=== PATIENT | male | born 1950 | race Caucasian/White ===

== ENCOUNTER 2017-08-02 12:34 | Emergency (ER) | payer BC, SELFPAY ==
[2017-08-02 13:31] VITALS: BP 149/90; PULSE 76; RESP 20; TEMP 36.9; O2SAT 96; BMI 25.5
[2017-08-02 13:59] LABS: UTC Influenza A Antigen Negative (Negative); UTC Influenza B Antigen Negative (Negative)
--- NOTE | 2017-08-02 14:13 | HMH.EDUTC ---
[facility] [place] Disposition Clinical Impression: Cough, Exposure to influenza Disposition: Home, Self-Care Condition on Discharge: Good Instructions: How to Avoid a Cold or Flu, Sore Throat Additional Instructions: * Monitor Temp. Tylenol and/or Ibuprofen as needed. ER if fever is no less than 101 despite alternating Tylenol and Ibuprofen * Encourage fluids, water, Gatorade, powerade, pedialyte if /toddler/or child * Warm salt water gargles for throat irritation *Warm fluids *Sore throat lozenges *Sleep elevated *humidifier or vaporizer Lots of rest Increase fluids, water, Gatorade, powerade *Your throat swab was sent to lab for culture. Those results area typically sent to your primary care physician. Be sure to follow up in 2-3 days if no improvement so they can review those results and treat if necessary If you dont have primary care I recommend you get one, but in the mean time you will have to return to a walk in clinic Follow up IMMEDIATELY for new or worsening of symptoms OR no noticeable improvement over the next 48-72 hours. 911 immediately for any life threatening symptoms such as chest pain or difficulty breathing Prescriptions: Dextromethorphan Polistirex [Delsym] 60 mg PO Q12H PRN #200 [email or web address] PRN Reason: Cough Referrals: Hemanth Winn MD [Primary Care Provider] - Time of Disposition: 14:18 Medical Decision Making Vital Signs: 08/02/17 13:31 Temperature 98.5 F Temperature Source Temporal Artery Scan Pulse Rate [Right] 76 Respiratory Rate 20 Blood Pressure [Right Arm] 149/90 Blood Pressure Mean [Right Arm] 109 Blood Pressure Source [Right Arm] Automatic Cuff Blood Pressure Position [Right Arm] Sitting 02 Sat by Pulse Oximetry 96 Oxygen Delivery Method Room Air - Lab Data Lab Results 08/02/17 13:46: Influenza Type A Ag Negative, Influenza Type B Ag Negative - Arnaldo Inquiry Pt receiving controlled substance: No Arnaldo was queried for this patient: No [facility] [place] HPI - General Stated complaint: sore throat congestion Mode of Arrival: Ambulatory Source of Information: Patient Limitations: No Limitations Description of Symptoms (Recalled from Triage Doc. by RN): REQUESTS CHECK FOR FLU HEENT Symptoms (Recalled from RN notes): Yes Resp Symptoms (Recalled from RN notes): No Skin Symptoms (Recalled from RN notes): No MS Symptoms (Recalled from RN notes): No Functional Status (Recalled from RN notes): N - History of Present Illness Provider Complaint: Patient state that he wanted to be seen for the Flu because his was flu positive about 5 days ago Onset (ago): day(s) (1-2) Severity: mild Severity scale (1-10): 2 Relieving factors: none Exacerbating factors: none Associated symptoms: cough, fever/chills, headaches Treatments prior to arrival: none - Related Data Previous Rx's Medication Instructions Recorded Dextromethorphan Polistirex 60 mg PO Q12H PRN #200 [email or web address] 08/02/17 [Delsym] Allergies Allergy/AdvReac Type Severity Reaction Status Date / Time morphine Allergy Mild Unverified 07/18/17 14:33 - Worker's Comp Is this a Worker's Comp case?: No [facility] History - *Social History Alcohol Intake: never - Psychiatric History Expresses thoughts of harming self/others: None Suicide Plan Description: No Plan - Constitutional Reports body ache(s), Reports chills, Reports fatigue, Reports fever(s), Reports headache(s) - ENT Reports nasal discharge, Reports sore throat - Respiratory Reports cough Physical Exam - General General appearance: alert, in no apparent distress - ENT ENT exam: Present: normal exam, normal oropharynx, mucous membranes moist, TM's normal bilaterally, normal external ear exam - Respiratory Respiratory exam: Present: normal lung sounds bilaterally. Absent: respiratory distress - Cardiovascular Cardiovascular exam: Present: regular rate, normal rhythm. Absent: JVD - Neurological Exam Neurological exam: Presen
--- NOTE | 2017-08-02 14:17 | ED_ITS ---
[facility] [place] Clinical Impression: Cough, Exposure to influenza Disposition: Home, Self-Care Condition on Discharge: Good Instructions: How to Avoid a Cold or Flu, Sore Throat Additional Instructions: * Monitor Temp. Tylenol and/or Ibuprofen as needed. ER if fever is no less than 101 despite alternating Tylenol and Ibuprofen * Encourage fluids, water, Gatorade, powerade, pedialyte if /toddler/or child * Warm salt water gargles for throat irritation *Warm fluids *Sore throat lozenges *Sleep elevated *humidifier or vaporizer Lots of rest Increase fluids, water, Gatorade, powerade *Your throat swab was sent to lab for culture. Those results area typically sent to your primary care physician. Be sure to follow up in 2-3 days if no improvement so they can review those results and treat if necessary If you don? t have primary care I recommend you get one, but in the mean time you will have to return to a walk in clinic Follow up IMMEDIATELY for new or worsening of symptoms OR no noticeable improvement over the next 48-72 hours. 911 immediately for any life threatening symptoms such as chest pain or difficulty breathing Prescriptions: Dextromethorphan Polistirex [Delsym] 60 mg PO Q12H PRN #200 [email or web address].er.12h PRN Reason: Cough Referrals: Hemanth Winn MD [Primary Care Provider] - Time of Disposition: 14:18 Medical Decision Making Vital Signs: 08/02/17 13:31 Temperature 98.5 F Temperature Source Temporal Artery Scan Pulse Rate [Right] 76 Respiratory Rate 20 Blood Pressure [Right Arm] 149/90 Blood Pressure Mean [Right Arm] 109 Blood Pressure Source [Right Arm] Automatic Cuff Blood Pressure Position [Right Arm] Sitting 02 Sat by Pulse Oximetry 96 Oxygen Delivery Method Room Air - Lab Data Lab Results 08/02/17 13:46: Influenza Type A Ag Negative, Influenza Type B Ag Negative - Arnaldo Inquiry Pt receiving controlled substance: No Arnaldo was queried for this patient: No [facility] [place] - General Stated complaint: sore throat congestion Mode of Arrival: Ambulatory Source of Information: Patient Limitations: No Limitations Description of Symptoms (Recalled from Triage Doc. by RN): REQUESTS CHECK FOR FLU HEENT Symptoms (Recalled from RN notes): Yes Resp Symptoms (Recalled from RN notes): No Skin Symptoms (Recalled from RN notes): No MS Symptoms (Recalled from RN notes): No Functional Status (Recalled from RN notes): N - History of Present Illness Provider Complaint: Patient state that he wanted to be seen for the Flu because his was flu positive about 5 days ago Onset (ago): day(s) (1-2) Severity: mild Severity scale (1-10): 2 Relieving factors: none Exacerbating factors: none Associated symptoms: cough, fever/chills, headaches Treatments prior to arrival: none - Related Data Previous Rx's Medication Instructions Recorded Dextromethorphan Polistirex 60 mg PO Q12H PRN #200 [email or web address].er.12h 08/02/17 [Delsym] Allergies Allergy/AdvReac Type Severity Reaction Status Date / Time morphine Allergy Mild Unverified 07/18/17 14:33 - Worker's Comp Is this a Worker's Comp case?: No [facility] History - *Social History Alcohol Intake: never - Psychiatric History Expresses thoughts of harming self/others: None Suicide Plan Description: No Plan - Constitutional Reports b
== END 2017-08-02 14:31 | disposition home or self-care (01) ==
PROVIDERS: Emergency Provider Nurse Practitioner; Family Provider Family Medicine; PCP Family Medicine
DX: Z20.828 Contact with and (suspected) exposure to other viral communicable diseases (principal)
CPT/HCPCS: 87276; 87804; 99202

== ENCOUNTER → 2017-08-24 10:58 | Outpatient (CLI) | payer BC, SELFPAY ==
--- NOTE | 2017-08-24 11:04 | NM_ITS ---
NM bone scan whole body CLINICAL INDICATION: ITS.REASON: SCLEROTIC LESION OF LS,H/O PROSTATE CA ORDERING PHYSICIAN: Anabell Winn MD PATIENT AGE: 67 years COMPARISON: Radiograph of 06/13/2017 as well as radiographs of the C-spine and T-spine of 08/24/2017 FINDINGS: On the L-spine radiograph there was a sclerotic focus at the L1 vertebral body which does not show increased activity on the bone scan. There is only slight increased activity on the left at T7-T8 and on the right at T6-T7 as well as the anterior aspect of the C6-C7 area on the cervical spine. These areas are probably related to degenerative changes. No sclerotic foci are evident on the plain films. No other abnormal areas of activity are apparent. IMPRESSION: 1. No convincing evidence of metastatic disease. 2. Scattered foci of increased activity in the cervical and thoracic spine likely related to degenerative changes seen on the plain film
--- NOTE | 2017-08-24 15:00 | XR_ITS ---
EXAM: XR thoracic spine 2V HISTORY: ITS.REASON: HOT SPOT ON BONE SCAN COMPARISON: Bone scan of the same day FINDINGS: Normal alignment. No fracture or dislocation. No lytic or blastic change. Mild endplate hypertrophic changes are present in the midthoracic spine. Bony spurring is present on the right at T6-T7 with endplate hypertrophic changes at T7 T8 T9 and T10. No lytic or blastic change evident. These are likely causes of small areas of increased activity on the bone scan. IMPRESSION: 1. Thoracic spondylosis as described above. 2. No lytic or blastic change.
--- NOTE | 2017-08-24 15:00 | XR_ITS ---
EXAM: XR cervical spine 2V HISTORY: ITS.REASON: HOT SPOT ON BONE SCAN ORDERING PHYSICIAN: Anabell Winn MD PATIENT AGE: 67 years COMPARISON: None FINDINGS: Normal alignment. There is degenerative disc disease at C4-5 C5-6 and C6-C7 with bilateral facet hypertrophic/arthritic changes from C3 to C7. No lytic or blastic change evident. There is bridging osteophyte anteriorly at C6-C7. These degenerative changes are likely the cause of the increased activity on the bone scan. IMPRESSION: 1. Cervical spondylosis with degenerative disc disease and facet arthritic change with bridging osteophyte at C6-C7. 2. No lytic or blastic lesions apparent
== END ==
PROVIDERS: Family Provider Family Medicine; PCP Family Medicine; Visit Provider Family Medicine
DX: R93.8 Abnormal findings on diagnostic imaging of other specified body structures (principal)
CPT/HCPCS: 72040; 72070; 78306; A9539

== ENCOUNTER → 2018-05-08 09:15 | Outpatient (POV) | payer BC, MEDICARE, SELFPAY | PROVIDERS: Visit Provider Dermatology | DX: Z00.00 Encounter for general adult medical examination without abnormal findings (principal) ==

== ENCOUNTER → 2018-07-19 16:32 | Outpatient (CLI) | payer BC, SELFPAY ==
--- NOTE | 2018-07-19 16:36 | XR_ITS ---
XR chest 2V HISTORY: ITS.REASON: HEART PALPITATIONS ORDERING PHYSICIAN: ILA Cruz PATIENT AGE: 68 years COMPARISON: 07/09/2019 FINDINGS: The cardiomediastinal silhouette and pulmonary vascularity are within normal limits. Hyperinflation with attenuation of the peripheral pulmonary vessels consistent with COPD. Calcified granuloma left apex. No lobar consolidation or collapse.. On the lateral view there is increased density overlying the T6 vertebral body and may be due to an overlying osteophyte. No acute bony abnormalities. IMPRESSION: COPD, no change with no acute finding
== END ==
PROVIDERS: PCP Family Medicine; Visit Provider Physician Assistant
DX: R00.2 Palpitations (principal); R93.89 Abnormal findings on diagnostic imaging of other specified body structures
CPT/HCPCS: 71046; 93225; 93226

== ENCOUNTER → 2019-01-02 07:54 | Outpatient (CLI) | payer BC, SELFPAY ==
[2019-01-02 10:16] LABS: Chol/HDL Ratio 2.2 (1-3.5); Cholesterol 211 mg/dL (140-200); HDL Cholesterol 95 mg/dL (27-67); LDL Cholesterol 80 mg/dL (0-130); Triglycerides 179 mg/dL (30-200); VLDL Cholesterol 36 mg/dL (0-40)
[2019-01-03 13:07] LABS: Prostate Specific Ag, Diagnost 0.3 ng/mL (0.0-4.0)
== END ==
PROVIDERS: Visit Provider Urology
DX: C61 Malignant neoplasm of prostate (principal); R97.20 Elevated prostate specific antigen [PSA]
CPT/HCPCS: 36415; 80061; 84153; 84154

== ENCOUNTER → 2019-08-20 07:47 | Outpatient (CLI) | payer BC, SELFPAY ==
--- NOTE | 2019-08-20 07:50 | CT_ITS ---
PROCEDURE: CT SINUS WO CON CLINICAL HISTORY: CHRONIC RHINITIS COMPARISON: No exams were available for comparison TECHNIQUE: Axial images obtained with sagittal and coronal reformats. All CT scans at the facility use one or more dose reduction, viz: automated exposure control, ma/kV adjustment per patient size (including targeted exams where dose is matched to indication, i.e. head), or iterative reconstruction technique. FINDINGS: There is leftward nasal septal deviation. Mild mucosal thickening measuring up to 4 millimeters is seen in the floors of both maxillary sinuses left greater than right. Approximately 2 millimeters worth of mucosal thickening is seen in the left frontal sinus. There is mild mucosal thickening in left ethmoid sinuses. There is no air-fluid level. Mastoid air cells are normally aerated. Incidental note is made of atherosclerotic calcifications in both carotid arterial systems. Duplex sonography could further evaluate for degree of stenosis if felt to be clinically indicated. Incidental note is made of hypertrophic facet disease and uncinate process on the left at C3-4 with relatively high-grade foraminal stenosis and with bilateral hypertrophic facet disease also at C4-5 with mild bilateral foraminal stenoses. IMPRESSION: Mild sinusitis as described. Dictated by: Victor M Liu 08/20/2019 09:23 Electronically signed by Victor M Liu in [facility] 08/20/2019 09:23
== END ==
PROVIDERS: PCP Family Medicine; Visit Provider Nurse Practitioner
DX: J31.0 Chronic rhinitis (principal)
CPT/HCPCS: 70486

== ENCOUNTER → 2019-08-23 10:56 | Outpatient (CLI) | payer BC, SELFPAY ==
--- NOTE | 2019-08-23 11:01 | CA_ITS ---
APPROVED REPORT Manager Ems: Yue Avalos RVT Laterality: Bilateral Study Quality: Good Indications: Calcification seen on CT of neck Risk Factors Hypertension: Smoking Doppler Spectral Velocity Analysis ECA (R) 115.80/14.80 cm/s ECA (L) 75.80/19.40 cm/s dICA (R) 85.60/25.30 cm/s dICA (L) 81.00/29.20 cm/s Sophia (R) 92.30/24.70 cm/s Sophia (L) 64.80/22.70 cm/s pICA (R) 79.90/14.50 cm/s pICA (L) 63.70/19.50 cm/s dCCA (R) 100.10/26.10 cm/s dCCA (L) 80.90/23.10 cm/s pCCA (R) 92.80/17.90 cm/s pCCA (L) 152.20/27.00 cm/s Vert (R) 74.80/17.70 cm/s Vert (L) 42.50/7.00 cm/s ICA/CCA 0.92 ICA/CCA 1.00 Findings Study suggests 20-49% 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 Study suggests less than 20% stenosis of the left internal cartoid artery. Antegrade flow seen bilateral vertebral arteries. Conclusion Study suggests 20-49% 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 Study suggests less than 20% stenosis of the left internal cartoid artery. Antegrade flow seen bilateral vertebral arteries. Electronically signed by : Victor M Liu, 08/23/2019 15:37:43
== END ==
PROVIDERS: PCP Family Medicine; Visit Provider Family Medicine
DX: I65.23 Occlusion and stenosis of bilateral carotid arteries (principal)
CPT/HCPCS: 93880

== ENCOUNTER 2019-11-22 14:02 | Emergency (ER) | payer BC, SELFPAY ==
[2019-11-22 14:08] VITALS: BP 155/86; PULSE 97; RESP 20; TEMP 36.5; O2SAT 97; BMI 24.4
--- NOTE | 2019-11-22 14:16 | HMH.COUGH ---
Cough Clinic HPI - History of Present Illness Complaint:: Nausea, upset stomach HPI:: 69-year-old gentleman with history of COPD, recurrent respiratory allergies, who presents with symptoms as follows. States approximately 17 days ago he woke up feverish and dry heaving. His symptoms resolved over the course of the day and has not had a fever above 100 since. Has had a few episodes of some dry heaves intermittently over the past 2 weeks but denies diarrhea and humberto emesis. No blood in stool or vomit. Denies shortness of breath, cough, anosmia, chest pain. Otherwise well. Onset (ago): day(s) Home Medications: Home Medications Medication Instructions Recorded Confirmed Type Azelastine HCl [Azelastine Nasal 1 spray NOSTRIL-B BID 06/06/18 11/22/19 History [place] 30mL Bottle] Cholecalciferol (Vitamin D3) 1,000 unit PO DAILY 06/06/18 11/22/19 History [Vitamin D3 1,000 Unit Cap] Ipratropium Saxis [Ipratropium 1 spray NOSTRIL-B BID 06/06/18 11/22/19 History Saxis 0.021mg/act NS] Levocetirizine Dihydrochloride 5 mg PO DAILY 06/06/18 11/22/19 History Montelukast Sodium [Montelukast 10 mg PO DAILY 06/06/18 11/22/19 History 10mg Tab] Ubidecarenone/Vit E Acet [Co Q-10 1 each PO DAILY 06/06/18 11/22/19 History 100 mg Softgel] hydroCHLOROthiazide 12.5 mg PO DAILY 06/06/18 11/22/19 History [Hydrochlorothiazide 12.5mg Tab] lisinopriL [Lisinopril 40mg Tablet] 40 mg PO DAILY 06/06/18 11/22/19 History raNITIdine HCl [Zantac] 150 mg PO BID 06/06/18 11/22/19 History Sildenafil Citrate [Viagra] 100 mg PO DAILY 07/09/18 11/22/19 History hydrOXYzine pamoate [Vistaril 25mg 25 mg PO Q6HP PRN #20 cap 07/09/18 11/22/19 Rx capsule] Metoprolol Long/Hydrochlorothiaz 1 each PO DAILY 04/17/19 11/22/19 History [Metoprolol ER-Hctz 100-12.5 mg] Rosuvastatin Calcium 10 mg PO DAILY 04/17/19 11/22/19 History Omeprazole [Omeprazole 40mg 40 mg PO DAILY 30 Days #30 cap 11/22/19 Rx Capsule] Allergies/Adverse Reactions: Allergies Allergy/AdvReac Type Severity Reaction Status Date / Time No Known Allergies Allergy Verified 07/02/19 10:53 Cough Clinic Triage - Symptoms Fever History: Yes (2 Weeks ago, resolved same day) Chills: No Myalgia: No Nasal Drainage: Yes Sore Throat: No Productive Cough: Yes Non-productive Cough: No Ear or Sinus Pain: No Joint Pain: No Chest Pain: No Rash: No Shortness of Breath: No Nausea or Vomitting: Yes Headache: No Abdominal Pain: No Diarrhea: Yes - Exposure History Foreign Travel: No Direct Contact with COVID-19 Patient: No - Risk Factors Greater than 60 Years Old: Yes COPD: Yes Diabetes: No Heart Disease: No Home Oxygen Use: No Chronic Renal Disease: No Chronic Liver Disease: No Neurologic/Neurodevelopmental/intellectual disability: No Other Chronic Diseases: No Current Smoker: No Former Smoker: Yes [facility] History I have reviewed the patient's past medical history: Yes Medical History: Reports:: Cancer, Chronic Obstructive Pulmonary Disease (COPD), Gastroesophageal Reflux Disease(GERD), Hyperlipidemia, Hypertension, Kidney Stones Denies:: Diabetes Mellitus Type 1, Diabetes Mellitus Type 2, Internal Pacemaker, Lung Disease, Seizures Comment: abn psa Other Surgeries: Yes: Colonoscopy, Other (TURP). No: Pacemaker Amputation: No Fractures: No Comment: tonsils,vasectomy,colonoscopies,prostatectomy - Social History Smoking Status: Never smoker Tobacco Type: cigarettes Alcohol Intake: never Alcohol Intake Frequency:: 0-2 drinks per day Substance Use Type: denies use Occupational Status: employed Housing: house Household Members: family Family Hx:: Hyperlipidemia, Hypertension Comment: history of prostate cancer ROS Obtained: Yes Systems reviewed as appropriate & no additional complaints Cough Clinic Exam - General General appearance: alert, in no apparent distress - Head Head exam: atraumatic, normocephalic, normal inspection - Eye Eye exam: Pre
[2019-11-22 14:21] LABS: Hematocrit 37.2 % (42.0-52.0); Mean Corpuscular HGB Conc 32.3 g/dL (31.8-35.4); Mean Corpuscular Hemoglobin 33.1 pg (27.0-31.2); Mean Corpuscular Volume 102.4 fl (80-94); Mean Platelet Volume 9.3 fl (7.4-10.4); Neutrophils % 72.8 % (37.0-80.0); Platelet Count 182 K/mm3 (142-424); Red Blood Count 3.63 M/mm3 (4.60-6.20); Red Cell Distribution Width 14.6 % (11.5-17.5); White Blood Count 7.2 K/mm3 (4.8-10.8)
[2019-11-22 14:22] LABS: Basophils % 0.6 % (0.1-2.0); Eosinophils # 0.2 K/mm3 (0.0-0.4); Lymphocytes # 1.1 K/mm3 (0.7-4.5); Lymphocytes % 15.1 % (10-50); Monocytes # 0.6 K/mm3 (0.1-1.0); Monocytes % 8.5 % (1.7-9.3); Neutrophils # 5.2 K/mm3 (1.8-7.8)
[2019-11-22 14:35] VITALS: BP 125/39; PULSE 97; RESP 20; TEMP 36.5; O2SAT 97
== END 2019-11-22 14:35 | disposition home or self-care (01) ==
PROVIDERS: Emergency Provider Internal Medicine Adolescent Medicine; PCP Family Medicine
DX: K21.9 Gastro-esophageal reflux disease without esophagitis (principal); J44.9 Chronic obstructive pulmonary disease, unspecified; E78.5 Hyperlipidemia, unspecified; I10 Essential (primary) hypertension; Z87.442 Personal history of urinary calculi
CPT/HCPCS: 36415; 85025; 99201; 99213

== ENCOUNTER 2020-03-26 15:10 | Emergency (ER) | payer BC, SELFPAY ==
--- NOTE | 2020-03-26 15:06 | ECG_ITS ---
APPROVED REPORT Exam: Resting ECG HR:76 bpm ECG Measurements Heart Rate 76 AXES VA 152 P 48 QRSd 80 QRS 4 QT 370 T 18 QTc 416 <Conclusion> Normal sinus rhythm left atrial abnormality Nonspecific ST and T wave abnormality Abnormal ECG Electronically signed by : Salvatore Ibarra, 03/28/2020 07:02:30
[2020-03-26 15:10] VITALS: BP 194/108; PULSE 84; RESP 18; TEMP 36.6; O2SAT 95; BMI 15.3
--- NOTE | 2020-03-26 15:16 | XR_ITS ---
PROCEDURE: XR CHEST 2V CLINICAL HISTORY: elevated BP COMPARISON: CR CXR CHEST(2 VIEWS-NOT PORTABLE) from 05/06/2014 CR CXR1VP XR chest portable from 07/09/[address] angio chest from 07/09/2018 CR CXR2V XR chest 2V from 07/19/2018 FINDINGS: The cardiomediastinal silhouette and pulmonary vascularity are within normal limits. Stable 5 mm left upper lobe nodule. There is also increased density along the posterior and inferior aspect of T6 vertebral body which is stable. This could be due to an area bony sclerosis or hypertrophy or an overlying nodule. No acute bony abnormalities. IMPRESSION: No change with no acute finding Dictated by: Que Jones MD 03/26/2020 16:54 Que Jones MD in [facility] 03/26/2020 16:54
--- NOTE | 2020-03-26 15:17 | CT_ITS ---
PROCEDURE: CT HEAD/BRAIN WO CON CLINICAL INDICATION: syncope Syncope and weakness COMPARISON: No exams were available for comparison TECHNIQUE: Axial images obtained. All CT scans at the facility use one or more dose reduction, viz: automated exposure control, ma/kV adjustment per patient size (including targeted exams where dose is matched to indication, i.e. head), or iterative reconstruction technique. FINDINGS: No midline shift, mass effect, intracranial hemorrhage, hydrocephalus, or extra-axial fluid collection is evident. There is generalized atrophy with hypoattenuation of the periventricular white matter consistent with microangiopathic changes.. Low-density changes are present in the right basal ganglia and left subinsular region consistent with old bilateral lacunar infarctions. The calvarium has an unremarkable appearance. No mastoid effusion. There is mild mucosal thickening of the left ethmoid sinus. IMPRESSION: No acute intracranial finding Dictated by: Que Jones MD 03/26/2020 15:49 Que Jones MD in [facility] 03/26/2020 15:49
--- NOTE | 2020-03-26 15:33 | PC.NURSE ---
Pt to rad
[2020-03-26 15:34] LABS: Basophils % 0.8 % (0.1-2.0); Eosinophils # 0.3 K/mm3 (0.0-0.4); Eosinophils % 4.7 % (0.1-12.0); Hematocrit 37.1 % (42.0-52.0); Hemoglobin 13.2 g/dL (14.1-18.0); Lymphocytes # 1.2 K/mm3 (0.7-4.5); Lymphocytes % 22.3 % (10-50); Mean Corpuscular HGB Conc 35.6 g/dL (31.8-35.4); Mean Corpuscular Hemoglobin 35.3 pg (27.0-31.2); Mean Corpuscular Volume 99.2 fl (80-94); Mean Platelet Volume 7.8 fl (7.4-10.4); Monocytes # 0.5 K/mm3 (0.1-1.0); Monocytes % 8.2 % (1.7-9.3); Neutrophils # 3.5 K/mm3 (1.8-7.8); Platelet Count 173 K/mm3 (142-424); Red Blood Count 3.74 M/mm3 (4.60-6.20); Red Cell Distribution Width 13.6 % (11.5-17.5); White Blood Count 5.5 K/mm3 (4.8-10.8)
[2020-03-26 15:43] LABS: Chloride 97 mmol/L (98-107); Sodium 134 mmol/L (136-145)
[2020-03-26 15:44] LABS: Potassium 4.2 mmoL/L (3.5-5.1)
[2020-03-26 15:46] LABS: Blood Urea Nitrogen 26 mg/dl (9-20); Creatinine Clearance Estimated 41 mL/min (50-200); Estimated Glomerular Filt Rate 60 ml/min (>60); GFR (African American) 73 ML/MIN (>60)
[2020-03-26 15:47] LABS: Anion Gap 17.2 mEq/L (5-15); Calcium 10.1 mg/dl (8.4-10.2); Carbon Dioxide 24 mmol/L (22.0-30.0); Glucose 122 mg/dl (74-100)
--- NOTE | 2020-03-26 15:51 | PC.NURSE ---
Pt returned from rad.
[2020-03-26 15:58] LABS: Magnesium 1.8 mg/dl (1.6-2.3)
[2020-03-26 16:09] LABS: Troponin I < 0.01 ng/ml (0.00-0.034)
[2020-03-26 16:49] LABS: D-Dimer 1.34 ug/mL (0.15-8.0)
[2020-03-26 16:58] LABS: Microscopic, Urine URINE MICROSCOPIC (MICROSCOPIC)
[2020-03-26 17:00] LABS: Appearance,Urine CLEAR (Clear); Bilirubin,Urine Negative (Negative); Blood, Urine Negative (Negative); Color,Urine YELLOW (Yellow); Glucose,Urine (UA) Negative (Negative); Ketones,Urine Negative (Negative); Leukocyte Esterase,Urine Negative (Negative); Nitrate,Urine Negative (Negative); PH,Urine 5.5 (5.0-8.5); Protein,Urine Negative (Negative); Specific Gravity, Urine 1.015 (1.005-1.030); Urobilinogen,Urine 0.2 EU/dl (0.2)
[2020-03-26 17:01] VITALS: BP 165/84; PULSE 71; O2SAT 96
[2020-03-26 17:25] VITALS: BP 177/92; PULSE 78; O2SAT 95
[2020-03-26 18:03] LABS: Bacteria,Urine Trace /lpf; Squamous Epithelial Cell,Urine Occasional #/hpf (0-5); WBC,Urine Occasional #/hpf (0-3)
--- NOTE | 2020-03-26 18:13 | HMH.EDDIZZ ---
ED Disposition Clinical Impression: Syncope, near Disposition: Home, Self-Care Condition on Discharge: Good Instructions: DI for Syncope in Adults (Fainting), DI for Syncope in Children (Fainting) Additional Instructions: You were seen on an emergency basis. It is very important that you follow up with your primary care provider and/or specialist as we discussed within 2 days. All labs and imaging were obtained and interpreted here to rule out life threatening emergencies, but your final results should be reviewed by your primary doctor at your follow up appointment. Please return to the emergency department if any of your symptoms worsen, or if they do not improve as we discussed. Referrals: Shahbaz Stack MD [Primary Care Provider] - - Critical Care Critical Care Time: No Attestation: On 03/26/20, the high probability of a clinically significant, sudden or life threatening deterioration of the following system(s) required my full and direct attention, intervention and personal management. The time I documented below is in addition to time spent performing reported procedures but includes the following listed in this critical care notation. Medical Decision Making - Medical Records Medical records reviewed: Yes: I reviewed the patient's medical records. - Arnaldo Inquiry Pt receiving controlled substance: No Vital Signs: 03/26/20 15:10 03/26/20 17:01 03/26/20 17:25 Temperature 97.9 F Temperature Source Oral Pulse Rate [Right Brachial] 84 71 78 Respiratory Rate 18 Blood Pressure [Right Arm] 194/108 H 165/84 H 177/92 H Blood Pressure Mean [Right Arm] 136 111 120 Blood Pressure Source [Right Arm] Automatic Cuff Automatic Cuff Automatic Cuff Blood Pressure Position [Right Arm] Sitting Sitting Sitting 02 Sat by Pulse Oximetry 95 96 95 Oxygen Delivery Method Room Air Room Air Room Air - Lab Data Lab results reviewed: Yes: I reviewed the patient's lab results. Lab Results 03/26/20 15:25: WBC 5.5, RBC 3.74 L, Hgb 13.2 L, Hct 37.1 L, MCV 99.2 H, MCH 35.3 H, MCHC 35.6 H, RDW 13.6, Plt Count 173, MPV 7.8, Neut % (Auto) 64.0, Lymph % (Auto) 22.3, Maverick % (Auto) 8.2, Eos % (Auto) 4.7, Baso % (Auto) 0.8, Neut # (Auto) 3.5, Lymph # (Auto) 1.2, Maverick # (Auto) 0.5, Eos # (Auto) 0.3, Baso # (Auto) 0.0 03/26/20 15:25: Sodium 134 L, Potassium 4.2, Chloride 97 L, Carbon Dioxide 24, Anion Gap 17.2 H, BUN 26 H, Creatinine 1.20, Estimated Creat Clear 41, Estimated GFR 60, Est GFR ( Amer) 73, Glucose 122 H, Calcium 10.1, Troponin I < 0.01 03/26/20 15:25: Magnesium 1.8 03/26/20 15:25: D-Dimer 1.34 03/26/20 16:49: Urine Color Yellow, Urine Appearance Clear, Urine pH 5.5, Ur Specific Miracle 1.015, Urine Protein Negative, Urine Glucose (UA) Negative, Urine Ketones Negative, Urine Blood Negative, Urine Nitrate Negative, Urine Bilirubin Negative, Urine Urobilinogen 0.2, Ur Leukocyte Esterase Negative, Urine WBC Occasional, Ur Squamous Epith Cells Occasional, Urine Bacteria Trace Result diagrams: 03/26/20 15:25 03/26/20 15:25 Orders (Tests/Meds): ORDERS Category Date Time Status Troponin I Q3H Lab 03/26/20 18:30 Ordered Troponin I Q3H Lab 03/26/20 21:30 Ordered Medical Decision Narrative: 69-year-old male presenting with near syncope and lightheadedness. Asymptomatic on arrival. Nontoxic, afebrile, hemodynamically stable, oxygenating well on room air. EKG is nonischemic and without acute arrhythmia. Troponin is nondetectable. CBC was nonactionable. Glucose and electrolytes were nonactionable. D-dimer was within normal limits. Urinalysis was negative for infection. Chest x-ray showed a lung nodule that the patient is aware of but no acute disease. Head CT was negative for acute disease. Patient has close follow-up with PCP and is safe for discharge at this point. Dizzy HPI - General Chief Complaint: Syncope Stated Complaint: Palpatations Time Seen by Provider: 03/26/20 16:13 Mode of Arrival
[2020-03-26 18:21] VITALS: BP 143/92; PULSE 80; RESP 18; TEMP 37; O2SAT 99
== END 2020-03-26 18:21 | disposition home or self-care (01) ==
PROVIDERS: Emergency Provider Physician Assistant; PCP Family Medicine
DX: R55 Syncope and collapse (principal); J44.9 Chronic obstructive pulmonary disease, unspecified; K21.9 Gastro-esophageal reflux disease without esophagitis; E78.5 Hyperlipidemia, unspecified; I10 Essential (primary) hypertension; Z87.442 Personal history of urinary calculi; Z85.46 Personal history of malignant neoplasm of prostate; Z79.899 Other long term (current) drug therapy
CPT/HCPCS: 70450; 71046; 80048; 81001; 83735; 84484; 85025; 85378; 93005; 99284

== ENCOUNTER → 2020-03-30 11:07 | Outpatient (CLI) | payer BC, SELFPAY ==
[2020-03-30 11:54] LABS: Chloride 98 mmol/L (98-107); Sodium 135 mmol/L (136-145)
[2020-03-30 11:57] LABS: Alanine Aminotransferase 118 U/L (12-78); Albumin Level 4.7 g/dl (3.5-5.0); Albumin/Globulin Ratio 1.9 (1.1-1.8); Alkaline Phosphatase 50 U/L (38-126); Aspartate Amino Transferase 101 U/L (17-59); Bilirubin,Total 0.6 mg/dl (0.2-1.3); Blood Urea Nitrogen 28 mg/dl (9-20); Calcium 10.1 mg/dl (8.4-10.2); Carbon Dioxide 21 mmol/L (22.0-30.0); Cholesterol 226 mg/dl (140-200); Estimated Glomerular Filt Rate 55 ml/min (>60); GFR (African American) 66 ML/MIN (>60); Globulin 2.5 g/dL (1.3-3.2); Glucose 95 mg/dl (74-100); Total Protein,Serum 7.2 g/dl (6.3-8.2); Triglycerides 81 mg/dl (30-150); VLDL Cholesterol 16 mg/dL (0-40)
[2020-03-30 12:09] LABS: Direct LDL Cholesterol 74.12 mg/dL (100-129)
[2020-03-30 12:24] LABS: Chol/HDL Ratio 1.6 (1-3.5); HDL Cholesterol 137 mg/dl (40-60)
[2020-03-30 12:28] LABS: Hemoglobin A1C 5.4 % (4.0-6.0); Thyroid Stimulating Hormone 2.64 uIU/mL (0.465-4.68)
[2020-03-30 12:41] LABS: Microalbumin/Creatinine Ratio 3.4
[2020-03-30 12:42] LABS: Creatinine,Urine Random 181 mg/dL (Not Estab.)
== END ==
PROVIDERS: Visit Provider Family Medicine
DX: I10 Essential (primary) hypertension (principal); R73.9 Hyperglycemia, unspecified; R74.8 Abnormal levels of other serum enzymes; E78.00 Pure hypercholesterolemia, unspecified
CPT/HCPCS: 36415; 80053; 80061; 82043; 82570; 83036; 84443

== ENCOUNTER → 2020-04-02 12:10 | Outpatient (CLI) | payer BC, SELFPAY ==
[2020-04-02 12:27] LABS: Basophils % 0.9 % (0.1-2.0); Eosinophils # 0.4 K/mm3 (0.0-0.4); Eosinophils % 7.7 % (0.1-12.0); Hematocrit 37.1 % (42.0-52.0); Hemoglobin 12.9 g/dL (14.1-18.0); Mean Corpuscular HGB Conc 34.9 g/dL (31.8-35.4); Mean Corpuscular Hemoglobin 35.7 pg (27.0-31.2); Mean Corpuscular Volume 102.3 fl (80-94); Mean Platelet Volume 9.4 fl (7.4-10.4); Monocytes # 0.4 K/mm3 (0.1-1.0); Neutrophils # 2.9 K/mm3 (1.8-7.8); Neutrophils % 61.4 % (37.0-80.0); Platelet Count 179 K/mm3 (142-424); Red Blood Count 3.63 M/mm3 (4.60-6.20); Red Cell Distribution Width 13.4 % (11.5-17.5); White Blood Count 4.7 K/mm3 (4.8-10.8)
[2020-04-02 12:50] LABS: Chloride 100 mmol/L (98-107); Potassium 4.6 mmoL/L (3.5-5.1); Sodium 135 mmol/L (136-145)
[2020-04-02 12:53] LABS: Alanine Aminotransferase 96 U/L (12-78); Albumin Level 4.4 g/dl (3.5-5.0); Albumin/Globulin Ratio 1.7 (1.1-1.8); Alkaline Phosphatase 37 U/L (38-126); Anion Gap 18.6 mEq/L (5-15); Aspartate Amino Transferase 97 U/L (17-59); Bilirubin,Total 0.4 mg/dl (0.2-1.3); Blood Urea Nitrogen 31 mg/dl (9-20); Calcium 9.5 mg/dl (8.4-10.2); Carbon Dioxide 21 mmol/L (22.0-30.0); Estimated Glomerular Filt Rate 27 ml/min (>60); GFR (African American) 33 ML/MIN (>60); Globulin 2.6 g/dL (1.3-3.2); Glucose 108 mg/dl (74-100); Phosphorous 4.7 mg/dl (2.5-4.5)
[2020-04-02 12:59] LABS: Erythrocyte Sedimentation Rate 19 mm/hr (0-20)
[2020-04-02 13:02] LABS: Total Iron Binding Capacity 245 ug/dL (261-462)
[2020-04-02 13:26] LABS: Ferritin 503 ng/ml (17.9-464)
[2020-04-02 14:36] LABS: Vitamin B12 732 pg/mL (239-931)
[2020-04-03 17:12] LABS: Transferrin 196 mg/dL (177-329)
[2020-04-08 09:38] LABS: Prostate Specific Ag Screen 0.5 ng/ml (0.0-4.0)
== END ==
PROVIDERS: Visit Provider Family Medicine
DX: D64.9 Anemia, unspecified (principal); N28.9 Disorder of kidney and ureter, unspecified; R79.89 Other specified abnormal findings of blood chemistry; Z85.46 Personal history of malignant neoplasm of prostate
CPT/HCPCS: 36415; 80053; 82607; 82728; 82746; 83550; 84100; 84466; 85025; 85651; G0103

== ENCOUNTER → 2020-04-03 10:03 | Outpatient (CLI) | payer BC, SELFPAY ==
--- NOTE | 2020-04-03 10:07 | US_ITS ---
PROCEDURE: US ABDOMEN LIMITED CLINICAL INDICATION: ELEVATED LFTS COMPARISON: US RUQ US RUQ-(ABD LTD)1ORGAN/QUAD/FU from 03/07/2017 FINDINGS: PANCREAS: Unremarkable. No obvious mass or abnormal fluid collection. No ductal dilatation, a portion of the tail is obscured by bowel gas. LIVER: There is diffusely increased in somewhat coarsened appearing echogenicity with some poor definition of the portal triads and findings are consistent with diffuse fatty infiltration. There are no focal lesions. Flow is hepatopetal in the nondilated main portal vein. RIGHT KIDNEY: Unremarkable. Normal size and echogenicity. The right kidney measures 11.7 x 5.1 by 8.4 cm and appears sonographically normal. No hydronephrosis GALLBLADDER: No gallstones, gallbladder wall thickening, pericholecystic fluid, or biliary dilatation. There is a trace amount of biliary sludge. IMPRESSION: Moderate diffuse hepatic steatosis along with trace amount of biliary sludge Dictated by: Dr. Memo Wang MD 04/03/2020 12:12 Dr. Memo Wang MD in [facility] 04/03/2020 12:12
== END ==
PROVIDERS: PCP Family Medicine; Visit Provider Family Medicine
DX: R79.89 Other specified abnormal findings of blood chemistry (principal)
CPT/HCPCS: 76705

== ENCOUNTER → 2020-04-16 10:14 | Outpatient (CLI) | payer BC, SELFPAY ==
[2020-04-16 10:39] LABS: Eosinophils # 0.3 K/mm3 (0.0-0.4); Eosinophils % 7.8 % (0.1-12.0); Hematocrit 38.7 % (42.0-52.0); Hemoglobin 13.5 g/dL (14.1-18.0); Lymphocytes % 23.5 % (10-50); Mean Corpuscular HGB Conc 34.7 g/dL (31.8-35.4); Mean Corpuscular Hemoglobin 35.1 pg (27.0-31.2); Mean Platelet Volume 8.4 fl (7.4-10.4); Monocytes # 0.5 K/mm3 (0.1-1.0); Monocytes % 12.6 % (1.7-9.3); Neutrophils # 2.3 K/mm3 (1.8-7.8); Platelet Count 188 K/mm3 (142-424); Red Blood Count 3.83 M/mm3 (4.60-6.20); Red Cell Distribution Width 13.7 % (11.5-17.5); White Blood Count 4.1 K/mm3 (4.8-10.8)
[2020-04-16 11:19] LABS: Alanine Aminotransferase 104 U/L (12-78); Albumin Level 4.7 g/dl (3.5-5.0); Albumin/Globulin Ratio 1.7 (1.1-1.8); Alkaline Phosphatase 53 U/L (38-126); Anion Gap 20.8 mEq/L (5-15); Aspartate Amino Transferase 86 U/L (17-59); Bilirubin,Total 0.5 mg/dl (0.2-1.3); Blood Urea Nitrogen 30 mg/dl (9-20); Calcium 10.1 mg/dl (8.4-10.2); Carbon Dioxide 23 mmol/L (22.0-30.0); Chloride 97 mmol/L (98-107); Estimated Glomerular Filt Rate 46 ml/min (>60); GFR (African American) 56 ML/MIN (>60); Globulin 2.7 g/dL (1.3-3.2); Glucose 102 mg/dl (74-100); Potassium 4.8 mmoL/L (3.5-5.1); Sodium 136 mmol/L (136-145); Total Protein,Serum 7.4 g/dl (6.3-8.2)
[2020-04-16 11:28] LABS: Intact Parathyroid Hormone 41.6 pg/mL (7.5-53.5)
== END ==
PROVIDERS: Visit Provider Family Medicine
DX: N28.9 Disorder of kidney and ureter, unspecified (principal); R79.89 Other specified abnormal findings of blood chemistry; D64.9 Anemia, unspecified
CPT/HCPCS: 36415; 80053; 83970; 85025

== ENCOUNTER → 2020-05-19 11:05 | Outpatient (POV) | payer BC, SELFPAY | PROVIDERS: Visit Provider Internal Medicine Nephrology | DX: Z00.00 Encounter for general adult medical examination without abnormal findings (principal) ==

== ENCOUNTER → 2020-05-27 14:20 | Outpatient (CLI) | payer BC, SELFPAY ==
[2020-05-27 15:54] LABS: Alanine Aminotransferase 75 U/L (12-78); Albumin/Globulin Ratio 1.8 (1.1-1.8); Alkaline Phosphatase 50 U/L (38-126); Anion Gap 20.5 mEq/L (5-15); Aspartate Amino Transferase 67 U/L (17-59); Bilirubin,Total 0.8 mg/dl (0.2-1.3); Blood Urea Nitrogen 28 mg/dl (9-20); Calcium 10.5 mg/dl (8.4-10.2); Carbon Dioxide 23 mmol/L (22.0-30.0); Chloride 101 mmol/L (98-107); Estimated Glomerular Filt Rate 43 ml/min (>60); GFR (African American) 52 ML/MIN (>60); Globulin 2.8 g/dL (1.3-3.2); Glucose 138 mg/dl (74-100); Potassium 4.5 mmoL/L (3.5-5.1); Sodium 140 mmol/L (136-145); Total Protein,Serum 7.8 g/dl (6.3-8.2)
[2020-05-27 16:11] LABS: 25-OH Vitamin D, Total 74.7 ng/mL (30-100)
== END ==
PROVIDERS: Visit Provider Family Medicine
DX: I10 Essential (primary) hypertension (principal); R74.8 Abnormal levels of other serum enzymes; R53.83 Other fatigue; N18.31 Chronic kidney disease, stage 3a
CPT/HCPCS: 36415; 80053; 82306

== ENCOUNTER → 2020-06-04 11:56 | Outpatient (CLI) | payer BC, SELFPAY ==
[2020-06-04 13:36] LABS: NT Pro Brain Natriuretic Pep. 176 pg/mL (0-125)
== END ==
PROVIDERS: Visit Provider Nurse Practitioner Family
DX: R42 Dizziness and giddiness (principal); I65.23 Occlusion and stenosis of bilateral carotid arteries; R53.83 Other fatigue; G47.9 Sleep disorder, unspecified; R40.0 Somnolence
CPT/HCPCS: 36415; 83880

== ENCOUNTER → 2020-06-10 06:46 | Outpatient (CLI) | payer BC, SELFPAY ==
--- NOTE | 2020-06-10 06:54 | CT_ITS ---
PROCEDURE: CT HEART W CALCIUM SCORE CLINICAL HISTORY: fatigue COMPARISON: No exams were available for comparison TECHNIQUE: Axial images obtained with sagittal and coronal reformats. All CT scans at the facility use one or more dose reduction, viz: automated exposure control, ma/kV adjustment per patient size (including targeted exams where dose is matched to indication, i.e. head), or iterative reconstruction technique. FINDINGS: Coronary artery calcium score is 451 Extensive calcific plaque burden with very high cardiovascular disease risk. There is some scarring present in the right lower lobe superior segment and in the left lower lobe centrally. Mild bronchial thickening noted. IMPRESSION: Extensive calcific plaque burden with very high cardiovascular disease risk Dictated by: Que Jones MD 06/10/2020 07:29 Que Jones MD in [facility] 06/10/2020 07:29
--- NOTE | 2020-06-10 06:54 | CT_ITS ---
PROCEDURE: CT HEAD/BRAIN WO CON CLINICAL INDICATION: dizziness, presyncope COMPARISON: CT CT HEAD/BRAIN WO CON from 03/26/2020 TECHNIQUE: Axial images obtained. All CT scans at the facility use one or more dose reduction, viz: automated exposure control, ma/kV adjustment per patient size (including targeted exams where dose is matched to indication, i.e. head), or iterative reconstruction technique. FINDINGS: No midline shift, mass effect, intracranial hemorrhage, hydrocephalus, or extra-axial fluid collection is evident. There is generalized atrophy with hypoattenuation of the periventricular white matter consistent with microangiopathic changes. There are old small lacunar infarctions in the sub insular regions. The calvarium has an unremarkable appearance. No mastoid effusion. Mucosal thickening involves the left ethmoid sinus. IMPRESSION: 1. No acute intracranial findings. 2. Chronic changes with old bilateral lacunar infarctions. No significant change 3. Mild left ethmoid sinus disease Dictated by: Que Jones MD 06/10/2020 07:26 Que Jones MD in [facility] 06/10/2020 07:26
== END ==
PROVIDERS: PCP Family Medicine; Visit Provider Internal Medicine Cardiovascular Disease
DX: R42 Dizziness and giddiness (principal); I65.23 Occlusion and stenosis of bilateral carotid arteries; G47.9 Sleep disorder, unspecified; R40.0 Somnolence; R53.83 Other fatigue; Z13.6 Encounter for screening for cardiovascular disorders
CPT/HCPCS: 70450; 75571

== ENCOUNTER → 2020-06-10 06:47 | Outpatient (CLI) | payer SELFPAY | PROVIDERS: PCP Family Medicine; Visit Provider Internal Medicine Cardiovascular Disease | DX: Z13.6 Encounter for screening for cardiovascular disorders (principal) | CPT/HCPCS: 75571 ==

== ENCOUNTER → 2020-06-12 06:23 | Outpatient (CLI) | payer BC, SELFPAY ==
--- NOTE | 2020-06-12 06:23 | NM_ITS ---
APPROVED REPORT Exam: Nuclear Stress Test Indication: HTN, HYPERLIPIDEMIA, FATIGUE Patient Location: Outpatient Stress Tech: Rosina Knightnkson [place] Tech:Tahira SmallsJESSICA RT(R)(N) Ht: 5 ft 11 in Wt: 180 lbs HR: 67 bpm BP: 138/76 mmHg BSA: 2.02 m2 BMI: 25.1 History: HTN, HYPERLIPIDEMIA, FATIGUE Procedure: Patient exercised on Lm protocol 6:00 minutes and sec, resting heart rate 67 bpm, resting blood pressure 138/76 mmHg, with exercise maximum heart rate achived was 131 bpm which is 87 % of the maximum predicted heart rate and blood pressure was 190/92 mmHg. Patient denied any complaint of chest pain. Patient has Adequate exercise capacity, achieved 7.0 METs of workload on treadmill, the blood pressure response to exercise was Normal. Electrocardiogram Resting electrocardiogram showed sinus rhythm, with exercise there is less than 1.[address] segment depression noted from the baseline EKG. The EKG portion of the exercise Myoview is negative for ischemia. Cardiac Stress and Resting SPECT Images: Cardiac Stress and Resting SPECT images were obtained using technetium 99m Myoview 30.3 mCi stress and 10.42 mCi at rest. Gated SPECT for analysis of segmental wall motion and calculation of the ejection fraction also done. Prone images were also obtained. Cardiac stress and resting SPECT images show uniform myocardial activity without segmental perfusion abnormality, computer derived ejection fraction is 64% with no regional wall motion abnormality, right ventricle is normal size and contractility. Conclusion: 1. The EKG portion of the exercise Myoview is negative for ischemia, patient has adequate exercise capacity achieved 7 mets of workload on treadmill, the blood pressure response to exercise was adequate, there was no exercise induced chest discomfort. 2. No scintigraphic evidence of reversible ischemia seen, computer ejection fraction 64% with no regional wall motion abnormality, right ventricle is normal size and contractility. 3. Normal exercise Myoview study. Electronically signed by : Efe Alves, 06/12/2020 12:07:50
--- NOTE | 2020-06-12 06:23 | CA_ITS ---
APPROVED REPORT EXAM: Comprehensive 2D, Doppler, and color-flow Echocardiogram Generator Worker: Vinita Yao RDCS Ht: 5 ft 11 in Wt: 180lbs BSA: 2.02 BP: 150/90 mmHg Indications: htn,copd,ex smoker,fatigue 2D Dimensions LVOT 1.95 cm (M/F) 1.5-2.5 M-Mode Dimensions RVDd 2.89 cm (0.9-2.6) LA Diam 3.41 cm (1.9-4.0) LVDd 4.43 cm (3.5-5.7) Ao Diam 2.73 cm (2.0-3.7) LVDs 2.79 cm (3.5-5.7) IVSd 0.86 cm (0.6-1.1) PWd 0.93 cm (0.6-1.1) EF (Teich) 67.10% FS 37.00% EDV (Teich) 89.10 mL ESV (Teich) 29.30 mL LV Diastology E Decel Time 170.00 (160-240 msec) E/A Ratio 1.5 MED E' 9.80 (< 7 cm/sec) E'/MED E' Ratio 8.06 (>14) LAT E' 9.30 (<10 cm/sec) E/LAT E' Ratio 8.49 (>14) Mitral Valve MV E Max Tyrone. 79.00 (40-130 cm/s) MV A Velocity 51.00 (40-130 cm/s) E/A Ratio 1.55 MV Decel. Time 170.00 (160-240 ms) MV PHT 50.00 ms Left Ventricle Left atrium is mildly enlarged, left ventricle is normal size, mild concentric left ventricular hypertrophy, visually estimated ejection fraction 55% with no regional wall motion abnormality, grade 1 diastolic dysfunction seen without tissue Doppler evidence of raise left atrial pressure. Right Ventricle Right atrium and right ventricle are mildly enlarged with normal contractility. Aortic Valve Aortic valve is minimally thickened and fibrosed, there is no aortic stenosis or aortic insufficiency. Mitral Valve Mitral valve is grossly normal, there is mild mitral regurgitation. Tricuspid Valve Tricuspid valve is grossly normal, there is mild tricuspid regurgitation, tricuspid regurgitation jet velocity is inadequate for calculation of the right ventricular systolic pressure. Pulmonic Valve Pulmonic valve is poorly visualized. Great Vessels Aortic root is normal size. Pericardium No significant pericardial effusion noted. Conclusion 1. Mild biatrial enlargement, normal left ventricular size, mild concentric left ventricular hypertrophy, visually estimated ejection fraction 55% with no regional wall motion abnormality, grade 1 diastolic dysfunction seen without tissue Doppler evidence of raise left atrial pressure. 2. Mildly enlarged right ventricle with normal contractility. 3. Mild mitral and tricuspid regurgitation. 4. No significant pericardial effusion noted. Electronically signed by : Efe Alves, 06/12/2020 13:03:57
--- NOTE | 2020-06-12 06:23 | CA_ITS ---
APPROVED REPORT Exam: Exercise Treadmill Technologist: Justina Lim, Ht: 5 ft 11 in Wt: 180 lbs BSA: 2.02 m2 HR: 67 bpm BP: 138/76 mmHg Rhythm: SINUS RHYTHM Medical History Medical History: HTN, Hyperlipidemia Medications: Lisinopril,,,,, Metoprolol,,,,, HCTZ,,,,, Levocetirizine,,,,, SilDENAFIL,,,,, OmeprazLE,,,,, RoSovastatin,,,,, Roger;UAST,,,,, Vitamin B6,,,,, Allergies: No known drug allergies Cardiac Risk Factors: HTN, Hyperlipidemia Stress Test Details Test: Lm HR Resting HR: 71 bpm Max Heart Rate (APMHR): 150 bpm Max HR Achieved: 131 bpm Target HR (85% APMHR): 127 bpm % of APMHR: 87 Recovery HR: 109 bpm BP Resting BP: 138.0/76.0 mmHg Max BP: 190.0/92.0 mmHg Recovery BP: 160.0/78.0 mmHg ECG Resting ECG: SINUS RHYTHM Clinical Exercise duration: 06:00 min Highest Stage Achieved: Exercise capacity: 7.0 METs Stress ECG Conclusion LM PROTOCOL COMPLETED. EXERCISED 06:00. METS= 7.0 MAX BP 190/92. MAX HEART RATE 131 BPM WHICH IS 87% OF PM FOR AGE. STOPPED DUE TO SOA AND LEG FATIGUE. NO CP. SOA DURING PEAK INFUSION. RESOLVED IN RECOVERY. OCCASIONAL PVC. Less than 1.[address] segment depression noted from the baseline EKG. Test Summary Stage 2 03:00 12.0 2.5 130 . 150/ 86 . Cardiolite injected REST . . . . . . . Standing REST . . . . . . . Sitting REST 07:12 0.0 1.2 71 . 138/ 76 . . Stage 1 01:00 10.0 1.7 94 . . . . Stage 1 02:00 10.0 1.7 105 . 145/ 80 . . Stage 1 03:00 10.0 1.7 112 . 145/ 80 . . Stage 2 01:00 12.0 2.5 98 . . . . Stage 2 02:00 12.0 2.5 107 . . . . Stage 2 . . . . . . . Cardiolite injected Stage 2 03:00 12.0 2.5 130 . 150/ 86 . Stop exercise at 06:00 RECOVERY 01:00 0.0 0.0 115 . . . . RECOVERY 02:00 0.0 0.0 103 . 160/ 78 . . RECOVERY 03:00 0.0 0.0 87 . 160/ 78 . . RECOVERY 04:00 0.0 0.0 84 . 190/ 92 . . RECOVERY 05:00 0.0 0.0 81 . 179/ 93 . . RECOVERY 05:32 0.0 0.0 82 . 171/ 88 . . Electronically signed by : Efe Alves, 06/12/2020 12:00:56
== END ==
PROVIDERS: PCP Family Medicine; Visit Provider Internal Medicine Cardiovascular Disease
DX: R42 Dizziness and giddiness (principal); I10 Essential (primary) hypertension; R53.83 Other fatigue; I65.23 Occlusion and stenosis of bilateral carotid arteries; G47.9 Sleep disorder, unspecified; R40.0 Somnolence; R94.31 Abnormal electrocardiogram [ECG] [EKG]
CPT/HCPCS: 78452; 93017; 93306; A9502

== ENCOUNTER → 2020-06-16 12:49 | Outpatient (CLI) | payer BC, SELFPAY | PROVIDERS: PCP Family Medicine; Visit Provider Nurse Practitioner Family | DX: R42 Dizziness and giddiness (principal); G47.9 Sleep disorder, unspecified; R40.0 Somnolence; R53.83 Other fatigue; I65.23 Occlusion and stenosis of bilateral carotid arteries | CPT/HCPCS: G0399 ==

== ENCOUNTER → 2020-06-19 11:19 | Outpatient (CLI) | payer BC, SELFPAY ==
[2020-06-19 11:57] LABS: Basophils # 0.1 K/mm3 (0-0.2); Eosinophils # 0.4 K/mm3 (0.0-0.4); Hematocrit 41.2 % (42.0-52.0); Hemoglobin 13.3 g/dL (14.1-18.0); Lymphocytes # 1.2 K/mm3 (0.7-4.5); Lymphocytes % 23.4 % (10-50); Mean Corpuscular HGB Conc 32.3 g/dL (31.8-35.4); Mean Corpuscular Hemoglobin 33.5 pg (27.0-31.2); Mean Corpuscular Volume 103.6 fl (80-94); Mean Platelet Volume 8.5 fl (7.4-10.4); Monocytes # 0.6 K/mm3 (0.1-1.0); Monocytes % 10.4 % (1.7-9.3); Platelet Count 196 K/mm3 (142-424); Red Blood Count 3.98 M/mm3 (4.60-6.20); Red Cell Distribution Width 14.8 % (11.5-17.5); White Blood Count 5.3 K/mm3 (4.8-10.8)
[2020-06-19 13:45] LABS: Anion Gap 15.5 mEq/L (5-15); Blood Urea Nitrogen 20 mg/dl (9-20); Calcium 10.5 mg/dl (8.4-10.2); Carbon Dioxide 28 mmol/L (22.0-30.0); Chloride 101 mmol/L (98-107); Estimated Glomerular Filt Rate 74 ml/min (>60); GFR (African American) 89 ML/MIN (>60); Glucose 83 mg/dl (74-100); Potassium 4.5 mmoL/L (3.5-5.1); Sodium 140 mmol/L (136-145)
[2020-06-19 15:43] LABS: Coronavirus 19 IgG Antibody Negative (Negative); Coronavirus 19 IgM Antibody Negative (Negative)
== END ==
PROVIDERS: Visit Provider Internal Medicine
DX: Z01.818 Encounter for other preprocedural examination (principal); I25.10 Atherosclerotic heart disease of native coronary artery without angina pectoris
CPT/HCPCS: 36415; 80048; 85025; 86328

== ENCOUNTER 2020-06-22 08:43 | Day surgery (SDC) | payer BC, SELFPAY ==
[2020-06-22] VITALS (15 sets, daily range): BP systolic 119–162; BP diastolic 78–99; PULSE 65–80; RESP 16–20; TEMP 36.6; O2SAT 93–97; BMI 25.5
--- NOTE | 2020-06-22 07:09 | IR_ITS ---
APPROVED REPORT Patient Location: Outpatient PROCEDURES Left heart catheterization Left ventriculogram Selective coronary angiogram FFR to the proximal LAD Drug-eluting stent deployment to the proximal LAD INDICATION Coronary artery disease, Ischemic response to adenosine with an FFR index of 0.72, Angina pectoris Informed consent was obtained prior to the procedure. COMPLICATIONS NONE Estimated Blood Loss: LESS THAN 10 ML TECHNIQUE One percent lidocaine used to anesthetize the right anterior aspect of the wrist. The right radial artery was accessed via the Seldinger technique. A 6 Irish sheath was placed in the right radial artery. 2.5 mg of verapamil, 800 mcg of nitroglycerin, 1mg Lidocaine and 5000 U Heparin were given through the arterial sheath. The trap catheter was also used to perform left heart catheterization, left ventriculogram and selective coronary angiogram. At the end of the diagnostic angiogram therapeutic heparin was administered giving a therapeutic ACT. And I Akla left guide catheter was placed in the ascending aorta and an FFR wire was normalized. The guide catheter was used to intubate the left main artery and the wire was placed distally in the LAD. Adenosine was infused and the FFR index dropped to 0.72. At this point a 3.5 x 26 mm resolute Sinan stent was deployed at 18 alexus reducing the severe stenosis to 10%. Excellent angiographic results were obtained. After achieving SOLA-3 flow before and after the procedure the apparatus was removed the sheath was removed good hemostasis was achieved using TR banding patient was transferred to the postop holding area in stable condition ANGIOGRAPHIC RESULTS The left main artery Normal The left anterior descending artery Has a proximal 30 followed by an eccentric 60% stenosis. The mid LAD has mild myocardial bridge at an area in which atherosclerotic plaque is present. Combination of the plaque with the myocardial bridge compresses the LAD to 30 to 40% during systole. Large first diagonal artery has an ostial 20 to 30% stenosis The circumflex artery Nondominant with proximal 10 to 20% stenosis The right coronary artery Dominant with mild 10% luminal irregularities The SMALL ventriculogram reveals Normal 65% The left ventricular end-diastolic pressure 10 mmHg IMPRESSION Hemodynamically severe proximal LAD disease as described above Successful stenting of the proximal to mid LAD severe disease reduced to 10% with 1 drug-eluting stent Mild nonflow-limiting disease throughout with a mild to moderate stenosis in the mid LAD causing a mild mid LAD myocardial bridge Normal ejection fraction Normal left ventricular end-diastolic pressure PLAN 1. Dual antiplatelet therapy 2. Cardiac rehabilitation 3. Avoidance of tobacco products 4. Aggressive risk factor modification Electronically signed by : Edilson Trujillo, 06/24/2020 08:52:48
[2020-06-22 14:27] LABS: CATHL Activated Clotting Time > 400 SEC (74-125)
--- NOTE | 2020-06-22 14:46 | HMH.PHACLD ---
Fredis Romero has received discharge medication counseling on the following medications: NEW MEDICATIONS: BRILINTA CONTINUE MEDICATIONS: CRESTOR, LISINOPRIL, ASPIRIN, METOPROLOL
== END 2020-06-22 14:40 | disposition home or self-care (01) ==
LOC: CATHLAB 08:44
PROVIDERS: PCP Family Medicine; Visit Provider Internal Medicine
DX: R93.1 Abnormal findings on diagnostic imaging of heart and coronary circulation (principal); E78.2 Mixed hyperlipidemia; G47.9 Sleep disorder, unspecified; I10 Essential (primary) hypertension; I65.23 Occlusion and stenosis of bilateral carotid arteries; K21.9 Gastro-esophageal reflux disease without esophagitis; R55 Syncope and collapse; I25.10 Atherosclerotic heart disease of native coronary artery without angina pectoris; Z87.891 Personal history of nicotine dependence; J44.9 Chronic obstructive pulmonary disease, unspecified; Z79.899 Other long term (current) drug therapy
CPT/HCPCS: 85347; 92928; 93458; 93571; 99152; 99153; C1725; C1769; C1876; C9600; J0153; J1644; Q9967

== ENCOUNTER → 2020-07-02 12:12 | Outpatient (CLI) | payer BC, SELFPAY ==
[2020-07-02 12:38] LABS: Basophils # 0.1 K/mm3 (0-0.2); Basophils % 0.7 % (0.1-2.0); Eosinophils # 0.4 K/mm3 (0.0-0.4); Eosinophils % 5.1 % (0.1-12.0); Hematocrit 41.4 % (42.0-52.0); Lymphocytes # 1.1 K/mm3 (0.7-4.5); Lymphocytes % 15.3 % (10-50); Mean Corpuscular HGB Conc 33.8 g/dL (31.8-35.4); Mean Corpuscular Hemoglobin 34.4 pg (27.0-31.2); Mean Corpuscular Volume 101.7 fl (80-94); Mean Platelet Volume 8.6 fl (7.4-10.4); Monocytes # 0.7 K/mm3 (0.1-1.0); Monocytes % 9.9 % (1.7-9.3); Neutrophils # 4.8 K/mm3 (1.8-7.8); Neutrophils % 68.9 % (37.0-80.0); Platelet Count 188 K/mm3 (142-424); Red Blood Count 4.07 M/mm3 (4.60-6.20); Red Cell Distribution Width 14.4 % (11.5-17.5); White Blood Count 6.9 K/mm3 (4.8-10.8)
[2020-07-02 15:48] LABS: Anion Gap 17.2 mEq/L (5-15); Blood Urea Nitrogen 43 mg/dl (9-20); Calcium 10.9 mg/dl (8.4-10.2); Carbon Dioxide 23 mmol/L (22.0-30.0); Chloride 103 mmol/L (98-107); Estimated Glomerular Filt Rate 14 ml/min (>60); GFR (African American) 17 ML/MIN (>60); Glucose 93 mg/dl (74-100); Potassium 4.2 mmoL/L (3.5-5.1); Sodium 139 mmol/L (136-145)
== END ==
PROVIDERS: Visit Provider Internal Medicine
DX: R42 Dizziness and giddiness (principal); R55 Syncope and collapse; I10 Essential (primary) hypertension; I25.10 Atherosclerotic heart disease of native coronary artery without angina pectoris; E78.2 Mixed hyperlipidemia
CPT/HCPCS: 36415; 80048; 85025

== ENCOUNTER 2020-07-02 12:28 | Outpatient (RCR) | payer BC, SELFPAY | END 2020-07-17 13:00 | disposition home or self-care (01) | LOC: PT 12:28 | PROVIDERS: Visit Provider Internal Medicine | DX: Z95.5 Presence of coronary angioplasty implant and graft (principal) | CPT/HCPCS: 93798 ==

== ENCOUNTER → 2020-07-03 07:13 | Outpatient (CLI) | payer BC, SELFPAY ==
[2020-07-03 07:59] LABS: Chloride 105 mmol/L (98-107)
[2020-07-03 08:00] LABS: Potassium 3.9 mmoL/L (3.5-5.1); Sodium 139 mmol/L (136-145)
[2020-07-03 08:03] LABS: Anion Gap 17.9 mEq/L (5-15); Blood Urea Nitrogen 45 mg/dl (9-20); Calcium 10.2 mg/dl (8.4-10.2); Carbon Dioxide 20 mmol/L (22.0-30.0); Estimated Glomerular Filt Rate 12 ml/min (>60); GFR (African American) 15 ML/MIN (>60); Glucose 115 mg/dl (74-100)
--- NOTE | 2020-07-03 10:38 | US_ITS ---
PROCEDURE: US KIDNEY CLINICAL INDICATION: N17.9 - Acute kidney failure, unspecified COMPARISON: No exams were available for comparison FINDINGS: The right kidney is 13 by by 6 cm in the left kidney is 13 x 6 point by 5 cm. No hydronephrosis or renal mass. No perinephric fluid collection. Unremarkable echogenicity. IMPRESSION: Unremarkable bilateral renal ultrasound Dictated by: Que Jones MD 07/03/2020 17:03 Que Jones MD in [facility] 07/03/2020 17:03
[2020-07-03 11:05] LABS: Microscopic, Urine URINE MICROSCOPIC (MICROSCOPIC)
[2020-07-03 11:20] LABS: Basophils # 0.1 K/mm3 (0-0.2); Basophils % 0.8 % (0.1-2.0); Eosinophils # 0.6 K/mm3 (0.0-0.4); Eosinophils % 7.6 % (0.1-12.0); Hematocrit 40.7 % (42.0-52.0); Hemoglobin 13.5 g/dL (14.1-18.0); Lymphocytes # 1.1 K/mm3 (0.7-4.5); Lymphocytes % 13.5 % (10-50); Mean Corpuscular HGB Conc 33.2 g/dL (31.8-35.4); Mean Corpuscular Hemoglobin 34.6 pg (27.0-31.2); Mean Corpuscular Volume 104.1 fl (80-94); Mean Platelet Volume 8.4 fl (7.4-10.4); Monocytes # 0.9 K/mm3 (0.1-1.0); Monocytes % 11.1 % (1.7-9.3); Neutrophils # 5.3 K/mm3 (1.8-7.8); Platelet Count 192 K/mm3 (142-424); Red Blood Count 3.91 M/mm3 (4.60-6.20); Red Cell Distribution Width 14.3 % (11.5-17.5); White Blood Count 7.9 K/mm3 (4.8-10.8)
[2020-07-03 11:22] LABS: Appearance,Urine CLEAR (Clear); Bilirubin,Urine Negative (Negative); Blood, Urine 2+ (Negative); Color,Urine YELLOW (Yellow); Glucose,Urine (UA) TRACE (Negative); Ketones,Urine TRACE (Negative); Leukocyte Esterase,Urine Negative (Negative); Nitrate,Urine Negative (Negative); Protein,Urine 3+ (Negative); Specific Gravity, Urine 1.025 (1.005-1.030); Urobilinogen,Urine 0.2 EU/dl (0.2)
[2020-07-03 11:43] LABS: MANUAL DIFFERENTIAL MANUAL DIFFERENTIAL (MANUAL DIFF)
[2020-07-03 11:46] LABS: Bacteria,Urine 3+ /lpf
[2020-07-03 11:47] LABS: Coarse Granular Casts,Urine 20-50 #/lpf (0); Hyaline Casts,Urine Occasional #/lpf (0); RBC,Urine Occasional #/hpf (0-3); Transitional Epi Cells,Urine OCC #/lpf (0-3)
[2020-07-03 12:27] LABS: Eosinophils % 12 % (0-3); Lymphocytes % 17 % (10-50); Monocytes % 3 % (2-9); Neutrophils % 68 % (42-76); Total Cells Counted 100
[2020-07-03 12:28] LABS: Anisocytosis 1+; Macrocytosis 1+; Platelet Estimate Normal
== END ==
PROVIDERS: PCP Family Medicine; Visit Provider Internal Medicine Cardiovascular Disease
DX: N17.9 Acute kidney failure, unspecified (principal); R42 Dizziness and giddiness; R55 Syncope and collapse; E78.5 Hyperlipidemia, unspecified; I25.10 Atherosclerotic heart disease of native coronary artery without angina pectoris; I65.23 Occlusion and stenosis of bilateral carotid arteries; E78.2 Mixed hyperlipidemia; I10 Essential (primary) hypertension; K21.9 Gastro-esophageal reflux disease without esophagitis; R93.1 Abnormal findings on diagnostic imaging of heart and coronary circulation; R94.31 Abnormal electrocardiogram [ECG] [EKG]; G47.9 Sleep disorder, unspecified; R40.0 Somnolence; Z87.891 Personal history of nicotine dependence
CPT/HCPCS: 36415; 76770; 80048; 81001; 85007; 85025; 87086

== ENCOUNTER → 2020-07-09 10:00 | Outpatient (CLI) | payer BC, SELFPAY ==
[2020-07-09 10:04] LABS: MANUAL DIFFERENTIAL MANUAL DIFFERENTIAL (MANUAL DIFF)
[2020-07-09 10:56] LABS: Basophils # 0.3 K/mm3 (0-0.2); Basophils % 3.9 % (0.1-2.0); Eosinophils # 0.5 K/mm3 (0.0-0.4); Eosinophils % 8.4 % (0.1-12.0); Hematocrit 43.4 % (42.0-52.0); Hemoglobin 13.3 g/dL (14.1-18.0); Lymphocytes # 1.6 K/mm3 (0.7-4.5); Lymphocytes % 25.9 % (10-50); Mean Corpuscular HGB Conc 30.7 g/dL (31.8-35.4); Mean Corpuscular Hemoglobin 34.3 pg (27.0-31.2); Mean Platelet Volume 13.3 fl (7.4-10.4); Monocytes # 0.7 K/mm3 (0.1-1.0); Monocytes % 11.5 % (1.7-9.3); Neutrophils # 3.4 K/mm3 (1.8-7.8); Neutrophils % 54.3 % (37.0-80.0); Platelet Count 255 K/mm3 (142-424); Red Blood Count 3.87 M/mm3 (4.60-6.20); Red Cell Distribution Width 14.8 % (11.5-17.5); White Blood Count 6.3 K/mm3 (4.8-10.8)
[2020-07-09 11:08] LABS: Chloride 107 mmol/L (98-107); Potassium 3.7 mmoL/L (3.5-5.1); Sodium 140 mmol/L (136-145)
[2020-07-09 11:11] LABS: Anion Gap 16.7 mEq/L (5-15); Blood Urea Nitrogen 33 mg/dl (9-20); Calcium 10.3 mg/dl (8.4-10.2); Carbon Dioxide 20 mmol/L (22.0-30.0); Estimated Glomerular Filt Rate 27 ml/min (>60); GFR (African American) 33 ML/MIN (>60); Glucose 117 mg/dl (74-100)
[2020-07-09 11:32] LABS: Eosinophils % 6 % (0-3); Lymphocytes % 28 % (10-50); Macrocytosis 2+; Monocytes % 11 % (2-9); Neutrophils % 54 % (42-76); Platelet Estimate Normal; Total Cells Counted 100
== END ==
PROVIDERS: Visit Provider Internal Medicine Cardiovascular Disease
DX: R42 Dizziness and giddiness (principal); R55 Syncope and collapse; R93.1 Abnormal findings on diagnostic imaging of heart and coronary circulation; R06.00 Dyspnea, unspecified; R94.31 Abnormal electrocardiogram [ECG] [EKG]; E78.5 Hyperlipidemia, unspecified; I10 Essential (primary) hypertension; I65.23 Occlusion and stenosis of bilateral carotid arteries; K21.9 Gastro-esophageal reflux disease without esophagitis; Z87.891 Personal history of nicotine dependence; G47.9 Sleep disorder, unspecified; I25.10 Atherosclerotic heart disease of native coronary artery without angina pectoris; N17.9 Acute kidney failure, unspecified; R40.0 Somnolence; R53.83 Other fatigue
CPT/HCPCS: 36415; 80048; 85007; 85014; 85018; 85048; 85049

== ENCOUNTER 2020-08-07 10:00 | Outpatient (RCR) | payer BC, SELFPAY ==
--- NOTE | 2020-07-20 11:28 | HMH.PTOPEV ---
PT Outpatient Evaluation Rehab PT Outpatient Evaluation Start: 07/20/20 10:58 Freq: Status: Active Protocol: Document 07/20/20 11:16 PHORNE (Rec: 07/20/20 11:27 PHORNE [id number]) Electronically Signed By Derek Cornejo, PT 07/20/20 11:16 Outpatient Therapy Subjective History Subjective History Pt is 70 yowm who presents with c/o LB pain x 2-3 mos overall, but worse on the L side x ~ 3 days. He reports he was twisting to turn and change his walking direction when he felt a pop and had immediate pain onf L buttock. He reports pain is worse with intitial sit/stand transfer and gets better with prolonged walking. He reports no numbness or tingling, but twisting toward his R side continues to be more painful. Chief Complaint Pain,Stiff Symptom Type Sharp Symptoms Relieved By Rest/Positioning Symptoms Aggravated By Bending/Stooping,Twisting Prior Functional Limitations None Current Functional Limitations Driving,Standing,Walking Symptom Description Activity Dependent Level of pain today (0-10) 9 Pain scale - at its worst (0-10) 10 Lumbopelvic Eval Gait Observation General Gait Pattern Observation Antalgic Gait Palapation tenderness left Lumbar/Sacral Palpation Findings Tenderness Lumbar/Sacral Palpation Overall Comment L SI Accessory Movement L-spine Vertebrae Accessory Movements Central P/A [place] that Elicit Symptoms L5 bilateral S1 bilateral Range of Motion Lumbar Spine Active Flexion Range of 0-40 Motion (degrees) Lumbar Spine Active Extension Range of 0-15 Motion (degrees) Left Lumbar Spine Lateral Flexion Active 0-15 Range of Motion (degrees) Right Lumbar Spine Lateral Flexion 0-15 Active Range of Motion (degrees) Lumbar Spine ROM Limitations Pain Manual Muscle Test Bilateral Knee Extension Strength Grade 5 Normal Knee Flexion Strength Grade 5 Normal Hip Flexion Strength Grade 5 Normal Hip Abduction Strength Grade 5 Normal Hip Adduction Strength Grade 5 Normal Hip External Rotation Strength Grade 5 Normal Gluteus Gurpreet Strength Grade 5 Normal Extensor Hallucis Longus Strength Grade 5 Normal Ankle Dorsiflexion Strength Grade 5 Normal Gastronemius/Soleus Strength Grade 5 Normal DTR Rt Patellar 2+ Lt Patellar
== END 2020-08-07 10:05 | disposition home or self-care (01) ==
LOC: PT 10:00
PROVIDERS: PCP Family Medicine; Visit Provider Family Medicine
DX: M54.5 Low back pain (principal)
CPT/HCPCS: 97010; 97014; 97110; 97140; 97163; G0283

== ENCOUNTER → 2020-08-07 11:15 | Outpatient (CLI) | payer BC, SELFPAY ==
[2020-08-07 12:28] LABS: Anion Gap 14.5 mEq/L (5-15); Blood Urea Nitrogen 14 mg/dl (9-20); Calcium 10.3 mg/dl (8.4-10.2); Carbon Dioxide 26 mmol/L (22.0-30.0); Chloride 105 mmol/L (98-107); Estimated Glomerular Filt Rate 66 ml/min (>60); GFR (African American) 80 ML/MIN (>60); Glucose 99 mg/dl (74-100); Potassium 4.5 mmoL/L (3.5-5.1); Sodium 141 mmol/L (136-145)
== END ==
PROVIDERS: Visit Provider Internal Medicine Cardiovascular Disease
DX: I25.10 Atherosclerotic heart disease of native coronary artery without angina pectoris (principal); I10 Essential (primary) hypertension; E78.5 Hyperlipidemia, unspecified; I65.29 Occlusion and stenosis of unspecified carotid artery
CPT/HCPCS: 36415; 80048

== ENCOUNTER → 2020-08-14 08:25 | Outpatient (CLI) | payer BC, SELFPAY ==
[2020-08-14 08:32] LABS: Microscopic, Urine URINE MICROSCOPIC (MICROSCOPIC)
[2020-08-14 09:47] LABS: Anion Gap 15.4 mEq/L (5-15); Blood Urea Nitrogen 15 mg/dl (9-20); Calcium 10.4 mg/dl (8.4-10.2); Carbon Dioxide 25 mmol/L (22.0-30.0); Chloride 105 mmol/L (98-107); Estimated Glomerular Filt Rate 66 ml/min (>60); GFR (African American) 80 ML/MIN (>60); Glucose 119 mg/dl (74-100); Lactate Dehydrogenase 180 U/L (313-618); Phosphorous 3.8 mg/dl (2.5-4.5); Potassium 4.4 mmoL/L (3.5-5.1); Sodium 141 mmol/L (136-145); Uric Acid 6.5 mg/dl (3.5-8.5)
[2020-08-14 09:59] LABS: Intact Parathyroid Hormone 64.9 pg/mL (7.5-53.5)
[2020-08-14 10:04] LABS: 25-OH Vitamin D, Total 57.2 ng/mL (30-100)
[2020-08-14 11:49] LABS: Appearance,Urine CLEAR (Clear); Bilirubin,Urine Negative (Negative); Blood, Urine Negative (Negative); Color,Urine YELLOW (Yellow); Glucose,Urine (UA) Negative (Negative); Ketones,Urine Negative (Negative); Leukocyte Esterase,Urine Negative (Negative); Nitrate,Urine Negative (Negative); Protein,Urine Negative (Negative); Specific Gravity, Urine 1.025 (1.005-1.030); Urobilinogen,Urine 0.2 EU/dl (0.2)
[2020-08-14 12:03] LABS: Bacteria,Urine Trace /lpf; RBC,Urine Occasional #/hpf (0-3); Squamous Epithelial Cell,Urine Occasional #/hpf (0-5)
[2020-08-15 19:39] LABS: Complement C3 123 mg/dL (82-167)
== END ==
PROVIDERS: Visit Provider Internal Medicine Nephrology
DX: N17.9 Acute kidney failure, unspecified (principal); N18.2 Chronic kidney disease, stage 2 (mild); I12.9 Hypertensive chronic kidney disease with stage 1 through stage 4 chronic kidney disease, or unspecified chronic kidney disease; Z87.891 Personal history of nicotine dependence
CPT/HCPCS: 36415; 80069; 81001; 82306; 83615; 83970; 84550; 86161

== ENCOUNTER → 2020-08-21 13:53 | Outpatient (POV) | payer BC, SELFPAY | PROVIDERS: Visit Provider Internal Medicine Nephrology | DX: Z00.00 Encounter for general adult medical examination without abnormal findings (principal) ==

== ENCOUNTER → 2020-11-03 08:10 | Outpatient (CLI) | payer MEDICARE, SELFPAY ==
--- NOTE | 2020-11-03 08:13 | US_ITS ---
PROCEDURE: US KIDNEY CLINICAL INDICATION: CHRONIC KIDNEY DISEASE STAGE 2 COMPARISON: US US KIDNEY from 07/03/2020 FINDINGS: The right kidney is [id number]. No hydronephrosis or renal mass or perinephric fluid collection is evident. The left kidney is [id number]. No hydronephrosis or renal mass or perinephric fluid collection is evident. There is mild bilateral renal cortical thinning. Incidental note is made of hepatic steatosis IMPRESSION: Mild bilateral renal cortical thinning otherwise negative bilateral renal ultrasound Dictated by: Que Jones MD 11/03/2020 17:10 Que Jones MD in [facility] 11/03/2020 17:10
--- NOTE | 2020-11-03 08:45 | CA_ITS ---
APPROVED REPORT Microstrategy Architect Developer: Yue Avalos RVT Study Quality: Good Indications: ACUTE KIDNEY FAILURE,CKD STAGE 2,HTN Risk Factors Hypertension Hyperlipidemia Renal Artery Doppler Origin (R) 183.2/ cm/sec Proximal (R) 186.6/ cm/sec Mid (R) 178.1/ cm/sec Distal (R) 140.3/ cm/sec Renal Aorta Ratio (R) 1.38 Segmental A. (R) 52.3/20.9 cm/sec RI: 0.60 Segmental A. Sup (R) 52.3/20.9 cm/sec Segmental A. Mid (R) 41.9/15.7 cm/sec Segmental A. Inf (R) 41.9/14.4 cm/sec Origin (L) 169.3/ cm/sec Proximal (L) 164.0/ cm/sec Mid (L) 239.9/ cm/sec Distal (L) 160.5/ cm/sec Renal Aorta Ratio (L) 1.77 Segmental A. (L) 69.9/19.6 cm/sec RI: 0.71 Segmental A. Sup (L) 57.6/19.6 cm/sec Segmental A. Mid (L) 69.9/19.6 cm/sec Segmental A. Inf (L) 38.0/13.5 cm/sec Renal Measurements Kidney Size (R) 12.2x8.4 cm Cortical Thickness (R) 1.0 cm Kidney Size (L) 12.5x8.7 cm Cortical Thickness (L) 1.3 cm Findings Study suggests less than 60% stenosis of the bilateral renal arteries. Conclusion Study suggests less than 60% stenosis of the bilateral renal arteries. Electronically signed by : Que Jones MD 11/03/2020 16:38:42
== END ==
PROVIDERS: PCP Family Medicine; Visit Provider Internal Medicine Nephrology
DX: N17.9 Acute kidney failure, unspecified (principal); N18.2 Chronic kidney disease, stage 2 (mild); I10 Essential (primary) hypertension
CPT/HCPCS: 76770; 93976

== ENCOUNTER → 2020-11-06 11:50 | Outpatient (CLI) | payer MEDICARE, SELFPAY ==
[2020-11-06 13:06] LABS: Bilirubin,Unconjugated 0.5 mg/dL (0.0-1.1)
[2020-11-06 13:07] LABS: Alanine Aminotransferase 49 U/L (12-78); Albumin Level 4.9 g/dl (3.5-5.0); Alkaline Phosphatase 58 U/L (38-126); Aspartate Amino Transferase 57 U/L (17-59); Bilirubin,Direct 0.1 mg/dl (0.0-0.4); Bilirubin,Indirect 0.5 mg/dL (0.0-0.9); Bilirubin,Total 0.6 mg/dl (0.2-1.3); Total Protein,Serum 7.5 g/dl (6.3-8.2)
== END ==
PROVIDERS: Visit Provider Family Medicine
DX: R74.8 Abnormal levels of other serum enzymes (principal)
CPT/HCPCS: 36415; 80076

== ENCOUNTER → 2021-02-15 14:01 | Outpatient (CLI) | payer MEDICARE, SELFPAY ==
[2021-02-15 14:05] LABS: Microscopic, Urine URINE MICROSCOPIC (MICROSCOPIC)
[2021-02-15 15:03] LABS: Appearance,Urine CLEAR (Clear); Blood, Urine Negative (Negative); Color,Urine DK YELLOW (Yellow); Glucose,Urine (UA) Negative (Negative); Ketones,Urine TRACE (Negative); Leukocyte Esterase,Urine Negative (Negative); Nitrate,Urine Negative (Negative); PH,Urine 5.5 (5.0-8.5); Protein,Urine TRACE (Negative); Specific Gravity, Urine >= 1.030 (1.005-1.030)
[2021-02-15 15:14] LABS: Hematocrit 40.2 % (42.0-52.0); Hemoglobin 14.1 g/dL (14.1-18.0); Mean Corpuscular HGB Conc 35.2 g/dL (31.8-35.4); Mean Corpuscular Hemoglobin 33.1 pg (27.0-31.2); Mean Corpuscular Volume 94.1 fl (80-94); Platelet Count 206 K/mm3 (142-424); Red Blood Count 4.27 M/mm3 (4.60-6.20); White Blood Count 6.7 K/mm3 (4.8-10.8)
[2021-02-15 15:18] LABS: Bilirubin,Urine 2+ (Negative)
[2021-02-15 15:36] LABS: Alanine Aminotransferase 64 U/L (12-78); Albumin Level 4.8 g/dl (3.5-5.0); Albumin/Globulin Ratio 1.7 (1.1-1.8); Alkaline Phosphatase 72 U/L (38-126); Aspartate Amino Transferase 60 U/L (17-59); Bilirubin,Total 1.4 mg/dl (0.2-1.3); Blood Urea Nitrogen 16 mg/dl (9-20); Calcium 9.4 mg/dl (8.4-10.2); Carbon Dioxide 25 mmol/L (22.0-30.0); Chloride 102 mmol/L (98-107); Estimated Glomerular Filt Rate 74 ml/min (>60); GFR (African American) 89 ML/MIN (>60); Globulin 2.8 g/dL (1.3-3.2); Glucose 102 mg/dl (74-100); Sodium 140 mmol/L (136-145); Total Protein,Serum 7.6 g/dl (6.3-8.2); Uric Acid 5.5 mg/dl (3.5-8.5)
[2021-02-15 15:49] LABS: Intact Parathyroid Hormone 76.4 pg/mL (7.5-53.5)
[2021-02-15 15:54] LABS: 25-OH Vitamin D, Total 45.7 ng/mL (30-100)
== END ==
PROVIDERS: Visit Provider Internal Medicine Nephrology
DX: N17.9 Acute kidney failure, unspecified (principal); N18.2 Chronic kidney disease, stage 2 (mild); I13.10 Hypertensive heart and chronic kidney disease without heart failure, with stage 1 through stage 4 chronic kidney disease, or unspecified chronic kidney disease
CPT/HCPCS: 36415; 80053; 81001; 82306; 83970; 84550; 85014; 85018; 85048; 85049

== ENCOUNTER 2021-02-17 09:00 | Outpatient (RCR) | payer MEDICARE, SELFPAY ==
--- NOTE | 2021-01-21 15:12 | HMH.PTOPEV ---
PT Outpatient Evaluation Rehab PT Outpatient Evaluation Start: 01/21/21 15:04 Freq: Status: Active Protocol: Document 01/21/21 15:04 NAWAF (Rec: 01/21/21 15:11 NAWAF [id number]) Electronically Signed By Derek Cornejo, PT 01/21/21 15:04 Outpatient Therapy Subjective History Subjective History Pt is 70 yowm who presents with c/o pain in R side of mid /low back x ~ 1-2 wks. Pt has hx of LBP with radiculopathy, but reports this is a much different pain. 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 He currently has no radicular symptoms, only sharp pain on R side that is worse with sit/stand transfers . Chief Complaint Pain,Stiff Symptom Type Sharp Symptoms Relieved By Rest/Positioning Symptoms Aggravated By Standing Prior Functional Limitations None Current Functional Limitations Standing Symptom Description Intermittent,Activity Dependent Level of pain today (0-10) 0 Pain scale - at its worst (0-10) 8 Lumbopelvic Eval Palapation tenderness right paraspinal tenderness Yes: T/L area Range of Motion Lumbar Spine Active Flexion Range of 0-55 Motion (degrees) Lumbar Spine Active Extension Range of 0-25 Motion (degrees) Left Lumbar Spine Lateral Flexion Active 0-20 Range of Motion (degrees) Right Lumbar Spine Lateral Flexion 0-20 Active Range of Motion (degrees) Manual Muscle Test Bilateral Knee Extension Strength Grade 5 Normal Knee Flexion Strength Grade 5 Normal Hip Flexion Strength Grade 5 Normal Hip Abduction Strength Grade 5 Normal Hip Adduction Strength Grade 5 Normal Hip External Rotation Strength Grade 5 Normal Hip Internal Rotation Strength Grade 5 Normal Hip Extension Strength Grade 5 Normal Gluteus Gurpreet Strength Grade 5 Normal Extensor Hallucis Longus Strength Grade 5 Normal Ankle Dorsiflexion Strength Grade 5 Normal Gastronemius/Soleus Strength Grade 5 Normal Special Tests Forward Bending Test- Standing Negative Left,Negative Right Hip Scouring (Quadrant) Test Negative Left,Negative Right Hip Derrick (HUBERT) Test Negative Left,Negative Right Hip Piriformis Test Negative Left,Negative Right Sciatic Nerve Tension Test Negative Left,Negative Right Unilateral Straight Leg Raise (Lasegue) Negative Left,Negative Right
== END 2021-02-17 09:05 | disposition home or self-care (01) ==
LOC: PT 09:00
PROVIDERS: PCP Family Medicine; Visit Provider Family Medicine
DX: M62.830 Muscle spasm of back (principal); M54.5 Low back pain
CPT/HCPCS: 20561; 97010; 97014; 97110; 97140; 97163; G0283

== ENCOUNTER → 2021-02-19 13:22 | Outpatient (POV) | payer MEDICARE, SELFPAY | PROVIDERS: Visit Provider Internal Medicine Nephrology | DX: Z00.00 Encounter for general adult medical examination without abnormal findings (principal) ==

== ENCOUNTER → 2021-04-26 08:53 | Outpatient (CLI) | payer MEDICARE, SELFPAY | PROVIDERS: Visit Provider Ophthalmology | DX: Z01.812 Encounter for preprocedural laboratory examination (principal); Z11.52 Encounter for screening for COVID-19 | CPT/HCPCS: C9803; U0003; U0005 ==

== ENCOUNTER 2021-04-27 08:31 | Day surgery (SDC) | payer MEDICARE, SELFPAY ==
[2021-04-27 08:48] VITALS: BP 155/94; PULSE 70; RESP 18; TEMP 36.8; O2SAT 95; BMI 24.7
[2021-04-27 09:46] VITALS: BP 137/73; PULSE 64; RESP 18; TEMP 36.6; O2SAT 97
== END 2021-04-27 09:50 | disposition home or self-care (01) ==
LOC: OUTP 08:33
PROVIDERS: PCP Family Medicine; Visit Provider Ophthalmology
PROC: (CPT 66821; principal; 2021-04-27 09:00)
DX: H26.492 Other secondary cataract, left eye (principal); Z96.1 Presence of intraocular lens; H02.831 Dermatochalasis of right upper eyelid; H02.834 Dermatochalasis of left upper eyelid; F41.9 Anxiety disorder, unspecified; K21.9 Gastro-esophageal reflux disease without esophagitis; I10 Essential (primary) hypertension; I25.10 Atherosclerotic heart disease of native coronary artery without angina pectoris; E78.5 Hyperlipidemia, unspecified
CPT/HCPCS: 66821

== ENCOUNTER → 2021-05-19 09:45 | Outpatient (CLI) | payer MEDICARE, SELFPAY ==
[2021-05-19 10:23] LABS: Basophils # 0.1 K/mm3 (0-0.2); Basophils % 0.8 % (0.1-2.0); Eosinophils # 0.4 K/mm3 (0.0-0.4); Eosinophils % 4.7 % (0.1-12.0); Hematocrit 45.5 % (42.0-52.0); Hemoglobin 15.2 g/dL (14.1-18.0); Lymphocytes # 0.9 K/mm3 (0.7-4.5); Lymphocytes % 11.3 % (10-50); Mean Corpuscular HGB Conc 33.4 g/dL (31.8-35.4); Mean Corpuscular Hemoglobin 33.7 pg (27.0-31.2); Mean Corpuscular Volume 100.9 fl (80-94); Monocytes # 0.5 K/mm3 (0.1-1.0); Monocytes % 6.7 % (1.7-9.3); Neutrophils # 5.9 K/mm3 (1.8-7.8); Neutrophils % 76.6 % (37.0-80.0); Platelet Count 198 K/mm3 (142-424); Red Blood Count 4.51 M/mm3 (4.60-6.20); Red Cell Distribution Width 13.1 % (11.5-17.5); White Blood Count 7.7 K/mm3 (4.8-10.8)
[2021-05-19 10:28] LABS: Creatinine,Urine Random 218 mg/dL (Not Estab.)
[2021-05-19 10:31] LABS: Microalbumin/Creatinine Ratio 11.6
[2021-05-19 10:42] LABS: Alanine Aminotransferase 67 U/L (12-78); Albumin Level 4.7 g/dl (3.5-5.0); Albumin/Globulin Ratio 1.7 (1.1-1.8); Alkaline Phosphatase 58 U/L (38-126); Anion Gap 14.1 mEq/L (5-15); Aspartate Amino Transferase 66 U/L (17-59); Bilirubin,Total 1.1 mg/dl (0.2-1.3); Blood Urea Nitrogen 16 mg/dl (9-20); Calcium 10.1 mg/dl (8.4-10.2); Carbon Dioxide 27 mmol/L (22.0-30.0); Chloride 104 mmol/L (98-107); Cholesterol 238 mg/dl (140-200); Estimated Glomerular Filt Rate 111 ml/min (>60); GFR (African American) 135 ML/MIN (>60); Globulin 2.7 g/dL (1.3-3.2); Glucose 99 mg/dl (74-100); Potassium 4.1 mmoL/L (3.5-5.1); Sodium 141 mmol/L (136-145); Total Protein,Serum 7.4 g/dl (6.3-8.2); Triglycerides 136 mg/dl (30-150); VLDL Cholesterol 27 mg/dL (0-40)
[2021-05-19 10:49] LABS: Chol/HDL Ratio 2.2 (1-3.5); HDL Cholesterol 106 mg/dl (40-60)
[2021-05-19 10:53] LABS: Direct LDL Cholesterol 108.97 mg/dL (100-129)
[2021-05-19 11:13] LABS: Prostate Specific Ag Screen 0.5 ng/ml (0.0-4.0)
== END ==
PROVIDERS: Visit Provider Family Medicine
DX: I10 Essential (primary) hypertension (principal); E78.00 Pure hypercholesterolemia, unspecified; R74.8 Abnormal levels of other serum enzymes; Z85.46 Personal history of malignant neoplasm of prostate; Z12.5 Encounter for screening for malignant neoplasm of prostate
CPT/HCPCS: 36415; 80053; 80061; 82043; 82570; 84443; 85025; G0103

== ENCOUNTER → 2021-11-16 09:56 | Outpatient (CLI) | payer MEDICARE, SELFPAY ==
[2021-11-16 10:13] LABS: Microscopic, Urine URINE MICROSCOPIC (MICROSCOPIC)
[2021-11-16 10:52] LABS: Appearance,Urine CLEAR (Clear); Bilirubin,Urine 1+ (Negative); Blood, Urine Negative (Negative); Color,Urine YELLOW (Yellow); Glucose,Urine (UA) Negative (Negative); Hematocrit 46.2 % (42.0-52.0); Hemoglobin 15.3 g/dL (14.1-18.0); Ketones,Urine TRACE (Negative); Leukocyte Esterase,Urine Negative (Negative); Mean Corpuscular HGB Conc 33.1 g/dL (31.8-35.4); Mean Corpuscular Hemoglobin 33.9 pg (27.0-31.2); Mean Corpuscular Volume 102.6 fl (80-94); Nitrate,Urine Negative (Negative); PH,Urine 5.5 (5.0-8.5); Platelet Count 208 K/mm3 (142-424); Protein,Urine Negative (Negative); Red Blood Count 4.51 M/mm3 (4.60-6.20); Red Cell Distribution Width 14.3 % (11.5-17.5); Specific Gravity, Urine >= 1.030 (1.005-1.030); Urobilinogen,Urine 0.2 EU/dl (0.2)
[2021-11-16 11:05] LABS: Chloride 106 mmol/L (98-107)
[2021-11-16 11:06] LABS: Potassium 3.6 mmoL/L (3.5-5.1); Sodium 143 mmol/L (136-145)
[2021-11-16 11:08] LABS: Alanine Aminotransferase 101 U/L (12-78); Aspartate Amino Transferase 104 U/L (17-59); Blood Urea Nitrogen 13 mg/dl (9-20); Estimated Glomerular Filt Rate 95 ml/min (>60); GFR (African American) 115 ML/MIN (>60)
[2021-11-16 11:09] LABS: Albumin Level 4.5 g/dl (3.5-5.0); Albumin/Globulin Ratio 1.7 (1.1-1.8); Alkaline Phosphatase 53 U/L (38-126); Anion Gap 13.6 mEq/L (5-15); Bilirubin,Total 0.9 mg/dl (0.2-1.3); Carbon Dioxide 27 mmol/L (22.0-30.0); Globulin 2.6 g/dL (1.3-3.2); Glucose 92 mg/dl (74-100); Total Protein,Serum 7.1 g/dl (6.3-8.2)
[2021-11-16 11:26] LABS: 25-OH Vitamin D, Total 32.2 ng/mL (30-100)
== END ==
PROVIDERS: Visit Provider Internal Medicine Nephrology
DX: I25.10 Atherosclerotic heart disease of native coronary artery without angina pectoris (principal); N17.9 Acute kidney failure, unspecified; N18.2 Chronic kidney disease, stage 2 (mild); I10 Essential (primary) hypertension
CPT/HCPCS: 36415; 80053; 81001; 82306; 84155; 85014; 85018; 85048; 85049

== ENCOUNTER → 2021-11-18 09:39 | Outpatient (CLI) | payer MEDICARE, SELFPAY ==
[2021-11-23 12:13] LABS: Alanine Aminotransferase 139 U/L (12-78); Alkaline Phosphatase 60 U/L (38-126); Aspartate Amino Transferase 185 U/L (17-59); Bilirubin,Direct 0.3 mg/dl (0.0-0.4); Bilirubin,Indirect 0.9 mg/dL (0.0-0.9); Bilirubin,Total 1.2 mg/dl (0.2-1.3); Bilirubin,Unconjugated 0.8 mg/dL (0.0-1.1)
[2021-11-23 12:14] LABS: Albumin Level 4.9 g/dl (3.5-5.0); Cholesterol 253 mg/dl (140-200); Total Protein,Serum 7.5 g/dl (6.3-8.2); Triglycerides 110 mg/dl (30-150); VLDL Cholesterol 22 mg/dL (0-40)
[2021-11-23 12:25] LABS: Direct LDL Cholesterol 106.94 mg/dL (100-129)
[2021-11-23 12:40] LABS: Chol/HDL Ratio 2.2 (1-3.5); HDL Cholesterol 114 mg/dl (40-60)
== END ==
PROVIDERS: Visit Provider Physician Assistant
DX: E78.2 Mixed hyperlipidemia (principal); I10 Essential (primary) hypertension; I25.10 Atherosclerotic heart disease of native coronary artery without angina pectoris; I65.23 Occlusion and stenosis of bilateral carotid arteries
CPT/HCPCS: 80061; 80076

== ENCOUNTER → 2021-11-19 12:53 | Outpatient (POV) | payer MEDICARE, SELFPAY | PROVIDERS: Visit Provider Internal Medicine Nephrology | DX: Z00.00 Encounter for general adult medical examination without abnormal findings (principal) ==

== ENCOUNTER → 2021-11-23 10:01 | Outpatient (CLI) | payer MEDICARE, SELFPAY ==
--- NOTE | 2021-11-23 10:03 | CA_ITS ---
FINAL REPORT CLINICAL HISTORY: marie ESTRADA 20-49% L ICA <20% 08/23/2019 FINDINGS: An ultrasound of the carotid arteries was performed. Duplex Doppler evaluation with spectral analysis was performed. The peak systolic velocity of the right common carotid artery is 139 cm/s. The peak systolic velocity of the right internal carotid artery is 145 cm/s and end diastolic velocity 19 cm/s. A small amount of plaque is present. The right external carotid artery is patent. The right vertebral artery is patent with antegrade flow. ICA/CCA ratio: 1.4 The peak systolic velocity of the left common carotid artery is 181 cm/s. The peak systolic velocity of the left internal carotid artery is 119 cm/s and end diastolic velocity 25 cm/s. A small amount of plaque is present. The left external carotid artery is patent. The left vertebral artery is patent with antegrade flow. ICA/CCA ratio: 1.0 IMPRESSION: Less than 50% bilateral carotid stenoses. Bilateral patent vertebral arteries with antegrade flow. Reviewed, Interpreted and Dictated by Pj Hoffman MD Transcribed by Zelalem Bertrand Authenticated by Pj Hoffman MD on 11/23/2021 12:50:23 PM [facility]
== END ==
PROVIDERS: PCP Family Medicine; Visit Provider Physician Assistant
DX: E78.2 Mixed hyperlipidemia (principal); I10 Essential (primary) hypertension; I25.10 Atherosclerotic heart disease of native coronary artery without angina pectoris; I65.23 Occlusion and stenosis of bilateral carotid arteries
CPT/HCPCS: 93880

== ENCOUNTER → 2022-05-17 11:04 | Outpatient (POV) | payer MEDICARE, SELFPAY | PROVIDERS: Visit Provider Dermatology | DX: Z00.00 Encounter for general adult medical examination without abnormal findings (principal) ==

== ENCOUNTER 2022-06-21 10:00 | Outpatient (RCR) | payer MEDICARE, SELFPAY ==
--- NOTE | 2022-06-14 10:46 | HMH.PTOPEV ---
PT Outpatient Evaluation Rehab PT Outpatient Evaluation Start: 06/14/22 10:26 Freq: Status: Active Protocol: Document 06/14/22 10:28 NAWAF (Rec: 06/14/22 10:45 NAWAF [id number]) E-signed By Derek Cornejo, PT Outpatient Therapy Subjective History Subjective History This is the initial PT eval for Fredis Romero 72 yowm who presents with c/o R side low/ mid back pain x ~ 2 wks. He reports pain began after sitting in the car with his dog for a long trip, after the trip he felt locked up in his back. He has had prior hx of pain in the same area 1-2 times previously. He reports pain is much better now with prescribed steroid and muscle relaxers. Chief Complaint Pain,Stiff Symptom Type Sharp Symptoms Relieved By Rest/Positioning,Prescription Meds Symptoms Aggravated By Twisting Prior Functional Limitations None Current Functional Limitations Sitting,Recreation Activity Symptom Description Intermittent,Activity Dependent Level of pain today (0-10) 0 Pain scale - at its worst (0-10) 10 Lumbopelvic Eval Posture Thoracic Spine Posture Standing Position Neutral Lumbar Spine Posture Standing Position Neutral Palapation tenderness right paraspinal tenderness Yes Lumbar/Sacral Palpation Findings Tenderness Lumbar/Sacral Palpation Overall Comment R quad lumborum Range of Motion Lumbar Spine Active Flexion Range of 0-55 Motion (degrees) Lumbar Spine Active Extension Range of 0-20 Motion (degrees) Left Lumbar Spine Lateral Flexion Active 0-20 Range of Motion (degrees) Right Lumbar Spine Lateral Flexion 0-20 Active Range of Motion (degrees) Manual Muscle Test Bilateral Knee Extension Strength Grade 5 Normal Knee Flexion Strength Grade 5 Normal Hip Flexion Strength Grade 5 Normal Hip Abduction Strength Grade 5 Normal Hip Adduction Strength Grade 5 Normal Hip External Rotation Strength Grade 5 Normal Hip Internal Rotation Strength Grade 5 Normal Extensor Hallucis Longus Strength Grade 5 Normal Ankle Dorsiflexion Strength Grade 5 Normal Gastronemius/Soleus Strength Grade 5 Normal Special Tests Forward Bending Test- Standing Negative Left,Negative Right Hip Scouring (Quadrant) Test Negative Left,Negative Right Hip Derrick (HUBERT) Test Negative Left,Negative Right Sciatic Nerve Tension Test N
== END 2022-06-21 10:05 | disposition home or self-care (01) ==
LOC: PT 10:00
PROVIDERS: PCP Family Medicine; Visit Provider Family Medicine
DX: M54.50 Low back pain, unspecified (principal)
CPT/HCPCS: 97110; 97163

== ENCOUNTER → 2022-08-19 13:35 | Outpatient (CLI) | payer MEDICARE, SELFPAY ==
[2022-08-19 13:51] LABS: Microscopic, Urine URINE MICROSCOPIC (MICROSCOPIC)
[2022-08-19 15:00] LABS: Hematocrit 45.7 % (42.0-52.0); Hemoglobin 15.4 g/dL (14.1-18.0); Mean Corpuscular HGB Conc 33.8 g/dL (31.8-35.4); Mean Corpuscular Volume 100.6 fl (80-94); Platelet Count 198 K/mm3 (142-424); Red Blood Count 4.54 M/mm3 (4.60-6.20); Red Cell Distribution Width 13.7 % (11.5-17.5); White Blood Count 4.9 K/mm3 (4.8-10.8)
[2022-08-19 15:24] LABS: Alanine Aminotransferase 176 U/L (12-78); Albumin Level 5.1 g/dl (3.5-5.0); Albumin/Globulin Ratio 2.1 (1.1-1.8); Alkaline Phosphatase 61 U/L (38-126); Aspartate Amino Transferase 197 U/L (17-59); Blood Urea Nitrogen 12 mg/dl (9-20); Calcium 9.6 mg/dl (8.4-10.2); Carbon Dioxide 22 mmol/L (22.0-30.0); Chloride 107 mmol/L (98-107); Estimated Glomerular Filt Rate 95 ml/min (>60); GFR (African American) 115 ML/MIN (>60); Globulin 2.4 g/dL (1.3-3.2); Glucose 91 mg/dl (74-100); Sodium 143 mmol/L (136-145); Total Protein,Serum 7.5 g/dl (6.3-8.2); Uric Acid 7.3 mg/dl (3.5-8.5)
[2022-08-19 15:33] LABS: Intact Parathyroid Hormone 56.3 pg/mL (7.5-53.5)
[2022-08-19 15:39] LABS: 25-OH Vitamin D, Total 32.2 ng/mL (30-100)
[2022-08-19 16:53] LABS: Hemoglobin A1C 5.1 % (4.0-6.0)
[2022-08-19 17:40] LABS: Appearance,Urine CLEAR (Clear); Blood, Urine Negative (Negative); Color,Urine YELLOW (Yellow); Glucose,Urine (UA) Negative (Negative); Ketones,Urine 1+ (Negative); Leukocyte Esterase,Urine Negative (Negative); Nitrate,Urine Negative (Negative); Protein,Urine TRACE (Negative); Specific Gravity, Urine >= 1.030 (1.005-1.030)
[2022-08-19 17:51] LABS: Bilirubin,Urine Negative (Negative)
[2022-08-19 17:55] LABS: Creatinine,Urine Random 330 mg/dL (Not Estab.); Total Protein,Urine Random < 5.0 mg/dL (0.0-12.0)
[2022-08-19 18:20] LABS: Bacteria,Urine Trace /lpf; Mucus,Urine 4+ /lpf; Squamous Epithelial Cell,Urine Occasional #/hpf (0-5); WBC,Urine Occasional #/hpf (0-3)
== END ==
PROVIDERS: PCP Family Medicine; Visit Provider Internal Medicine Nephrology
DX: N17.9 Acute kidney failure, unspecified (principal); N18.2 Chronic kidney disease, stage 2 (mild); I25.10 Atherosclerotic heart disease of native coronary artery without angina pectoris; I10 Essential (primary) hypertension; Z79.899 Other long term (current) drug therapy
CPT/HCPCS: 36415; 80053; 81001; 82306; 82570; 83036; 83970; 84155; 84550; 85014; 85018; 85048; 85049

== ENCOUNTER → 2022-11-08 15:37 | Outpatient (POV) | payer MEDICARE, SELFPAY | PROVIDERS: Visit Provider Dermatology | DX: Z00.00 Encounter for general adult medical examination without abnormal findings (principal) ==

== ENCOUNTER → 2023-05-25 12:38 | Outpatient (CLI) | payer MEDICARE, SELFPAY ==
[2023-05-25 13:13] LABS: Basophils # 0.1 K/mm3 (0-0.2); Eosinophils # 0.5 K/mm3 (0.0-0.4); Eosinophils % 11.8 % (0.1-12.0); Hematocrit 45.9 % (42.0-52.0); Hemoglobin 15.9 g/dL (14.1-18.0); Lymphocytes # 1.2 K/mm3 (0.7-4.5); Lymphocytes % 26.7 % (10-50); Mean Corpuscular HGB Conc 34.6 g/dL (31.8-35.4); Mean Corpuscular Hemoglobin 35.1 pg (27.0-31.2); Mean Corpuscular Volume 101.4 fl (80-94); Mean Platelet Volume 8.2 fl (7.4-10.4); Monocytes # 0.4 K/mm3 (0.1-1.0); Monocytes % 9.4 % (1.7-9.3); Neutrophils # 2.3 K/mm3 (1.8-7.8); Platelet Count 201 K/mm3 (142-424); Red Blood Count 4.52 M/mm3 (4.60-6.20); Red Cell Distribution Width 13.9 % (11.5-17.5); White Blood Count 4.5 K/mm3 (4.8-10.8)
[2023-05-25 14:08] LABS: Alanine Aminotransferase 78 U/L (12-78); Albumin Level 4.8 g/dl (3.5-5.0); Albumin/Globulin Ratio 1.7 (1.1-1.8); Alkaline Phosphatase 54 U/L (38-126); Anion Gap 19.9 mEq/L (5-15); Aspartate Amino Transferase 95 U/L (17-59); Bilirubin,Total 0.8 mg/dl (0.2-1.3); Blood Urea Nitrogen 12 mg/dl (9-20); Calcium 9.8 mg/dl (8.4-10.2); Carbon Dioxide 20 mmol/L (22.0-30.0); Chloride 108 mmol/L (98-107); Cholesterol 324 mg/dl (140-200); Estimated Glomerular Filt Rate 95 ml/min (>60); GFR (African American) 115 ML/MIN (>60); Globulin 2.8 g/dL (1.3-3.2); Glucose 94 mg/dl (74-100); Potassium 3.9 mmoL/L (3.5-5.1); Sodium 144 mmol/L (136-145); Total Protein,Serum 7.6 g/dl (6.3-8.2); Triglycerides 79 mg/dl (30-150); VLDL Cholesterol 16 mg/dL (0-40)
[2023-05-25 14:16] LABS: Chol/HDL Ratio 3.1 (1-3.5); HDL Cholesterol 103 mg/dl (40-60)
[2023-05-25 14:19] LABS: Direct LDL Cholesterol 181.89 mg/dL (100-129)
[2023-05-25 14:39] LABS: Prostate Specific Ag Screen 1.2 ng/ml (0.0-4.0); Thyroid Stimulating Hormone 1.01 uIU/mL (0.465-4.68)
[2023-05-25 15:45] LABS: Creatinine,Urine Random 220 mg/dL (Not Estab.)
== END ==
PROVIDERS: PCP Family Medicine; Visit Provider Family Medicine
DX: E78.00 Pure hypercholesterolemia, unspecified (principal); I10 Essential (primary) hypertension; R74.8 Abnormal levels of other serum enzymes; Z12.5 Encounter for screening for malignant neoplasm of prostate
CPT/HCPCS: 80053; 80061; 82043; 82570; 84443; 84550; 85025; G0103

== ENCOUNTER 2023-12-27 12:04 | Outpatient (CLI) | payer MEDICARE, SELFPAY ==
--- NOTE | 2023-12-27 | CA_ITS ---
APPROVED REPORT Exam: Exercise Treadmill Technologist: Brii Price, Ht: 5 ft 11 in Wt: 182 lbs BSA: 2.03 m2 HR: 68 bpm BP: 158/83 mmHg Rhythm: NSR, non specific ST abns laterally Medical History Medications: Amlodipine,,,,, Omeprazole,,,,, Aspirin,,,,, Atorvastatin,,,,, Metoprolol Succinate,,,,, Tylenol,,,,, Metamucil,,,,, DOcusate Sodium,,,,, SilDENAFIL,,,,, Vit B6,,,,, Cardiac Risk Factors: HTN, Smoking Stress Test Details Test: Kun HR Resting HR: 80 bpm Max Heart Rate (APMHR): 147 bpm Max HR Achieved: 133 bpm Target HR (85% APMHR): 125 bpm % of APMHR: 90 Recovery HR: 68 bpm HR response to stress: Normal HR response to stress BP Resting BP: 130.0/80 mmHg Max BP: 195/90 mmHg Recovery BP: 195.0/90.0 mmHg BP response to stress: Normal blood pressure response to stress. ECG Resting ECG: NSR, non specific ST abns, laterally Stress EC mm horizontal ST depression Arrhythmia: PVCs, PACs Recovery ECG: Return to baseline within 3 minutes of recovery Recovery Arrhythmia: PVCs Clinical Exercise duration: 07:00 min Highest Stage Achieved: Exercise capacity: 10.1 METs Stress ECG Conclusion During kun protocol pt exercised total of 7 minutes. No CP noted. Ectopy: Occasional PVCs, PAC. ST changes: Approx 1-1.5mm horizontal ST depression Conclusion: ECG stress test suggestive of possible ischemia. Myoview images reported separately. Test Summary REST . . . . . . . Sitting REST . . . . . . . Standing REST 04:44 0.0 0.0 80 . 130/ 80 . . Stage 1 01:00 10.0 1.7 91 . . . . Stage 1 02:00 10.0 1.7 97 . . . . Stage 1 03:00 10.0 1.7 103 . 160/ 80 . . Stage 2 01:00 12.0 2.5 109 . . . . Stage 2 02:00 12.0 2.5 115 . 182/ 84 . . Stage 2 03:00 12.0 2.5 120 . 182/ 84 . . Stage 3 01:00 14.0 3.4 . . . . Stop exercise at 07:00 RECOVERY 01:00 0.0 0.0 121 . . . . RECOVERY 02:00 0.0 0.0 107 . 195/ 90 . . RECOVERY 03:00 0.0 0.0 103 . 195/ 90 . . RECOVERY 04:00 0.0 0.0 97 . 164/ 80 . . RECOVERY 05:00 0.0 0.0 103 . 162/ 76 . . RECOVERY 06:00 0.0 0.0 93 . 162/ 76 . . RECOVERY 07:00 0.0 0.0 96 . 162/ 76 . . RECOVERY 07:20 0.0 0.0 93 . 162/ 76 . . Electronically signed by : Conchita Aden MD 01/02/2024 15:13:25
--- NOTE | 2023-12-27 12:04 | NM_ITS ---
APPROVED REPORT Exam: Nuclear Stress Test Indication: CAD, HTN, HYPERLIPIDEMIA, SOB, FATIGUE Patient Location: Outpatient Stress Tech: Brii Price [place] Tech:Gabby MartinJESSICA RT (R)(N)(M) Ht: 5 ft 11 in Wt: 180 lbs HR: 80 bpm BP: 130/80 mmHg BSA: 2.02 m2 TID: 1.00 BMI: 25.1 History: CAD, HTN, HYPERLIPIDEMIA, SOB, FATIGUE Procedure: Patient exercised on Lm protocol 7:00 minutes and sec, resting heart rate 80 bpm, resting blood pressure 130/80 mmHg, with exercise maximum heart rate achived was 133 bpm which is 90 % of the maximum predicted heart rate and blood pressure was 195/90 mmHg. Test was stopped due to FATIGUE. Patient has exercise capacity, achieved 10.1 METs of workload on treadmill, the blood pressure response to exercise was . Cardiac Stress and Resting SPECT Images: Cardiac Stress and Resting SPECT images were obtained using technetium 99m Myoview 32.9 mCi stress and 10.36 mCi at rest. Resting and stress imaging in supine and prone positions demonstrate no evidence of fixed or reversible perfusion defects. Gated imaging demonstrates normal global and regional LV systolic function. LVEF is calculated at 64%. Conclusion: No evidence of fixed or reversible perfusion defects. Gated imaging demonstrates normal global and regional LV systolic function. LVEF is calculated at 64%. Electronically signed by : Conchita Aden MD 01/02/2024 15:14:32
--- NOTE | 2023-12-27 12:55 | CA_ITS ---
APPROVED REPORT EXAM: Comprehensive 2D, Doppler, and color-flow Echocardiogram [employer] Teacher: Michela Pollock CRT Ht: 5 ft 11 in Wt: 182lbs BSA: 2.03 BP: 127/80 mmHg Indications: Abnormal ECG, Shortness of Breath, Fatigue, Hyperlipidemia, Hypertension/HDD 2D Dimensions LA Volume 39.00 mL LA Volume Index 18.80 mL/m2 (M/F) 16-34 M-Mode Dimensions RVDd 2.78 cm (0.9-2.6) LA Diam 3.15 cm (1.9-4.0) LVDd 4.03 cm (3.5-5.7) LVDs 2.78 cm (3.5-5.7) IVSd 1.50 cm (0.6-1.1) PWd 0.71 cm (0.6-1.1) EF (Teich) 59.30% FS 31.00% EDV (Teich) 71.30 mL TAPSE 1.60 (<1.7) ESV (Teich) 29.00 mL LV Diastology E Decel Time 100 (160-240 msec) E/A Ratio 0.70 MED A' 10.90 cm/s LAT A' 11.60 cm/s Aortic Valve AI PHT 506.00 ms AO Peak GR. 5.60 mmHg Mitral Valve MV A Velocity 68.0 (40-130 cm/s) E/A Ratio 0.70 Pulmonary Valve PV Peak Velocity 98.0 (50-150 cm/s) Tricuspid Valve TR P. Velocity 254.00 cm/s RAP Estimate 10.00 mmHg RVSP 35.70 mmHg Left Ventricle The left ventricle is normal size. The left ventricular systolic function is normal. The left ventricular ejection fraction is within the normal range. There is normal left ventricular wall thickness. There is normal LV segmental wall motion. The left ventricular diastolic function is normal. LVEF is 55%. Right Ventricle The right ventricle is normal size. The right ventricular systolic function is normal. Atria The left atrium size is normal. The right atrium size is normal. There is no Doppler evidence of interatrial shunt. Aortic Valve The aortic valve opens well. There is no aortic valvular stenosis. No aortic regurgitation is present. Mitral Valve The mitral valve is normal in structure. No evidence of mitral valve stenosis. Trace mitral valve regurgitation noted. Tricuspid Valve The tricuspid valve leaflets are thin and pliable. Trace tricuspid regurgitation. There is insufficient TR jet to estimate RVSP. Pulmonic Valve The pulmonary valve is normal in structure. Trace pulmonic regurgitation. Great Vessels The aortic root is normal in size. The ascending aorta is not well visualized. IVC is normal in size and collapses >50% with inspiration. Pericardium There is no pericardial effusion. Other Information Study Quality: Fair Conclusion Normal biventricular systolic function. No significant valvular stenosis or regurgitation. Electronically signed by : Conchita Aden MD 01/02/2024 19:05:44
[2023-12-27] MEDS: SODIUM CHLORIDE 0.9% 10ML SYR (RAD ONLY) 10 ML IV (18:34)
[2023-12-27] MEDS: ISOTOPE MYOVIEW (PER STUDY) 1 DOSE IV (18:34)
== END 2023-12-27 23:59 | disposition home or self-care (01) ==
LOC: RAD 12:04
PROVIDERS: PCP Family Medicine; Visit Provider Nurse Practitioner Family
DX: Z95.5 Presence of coronary angioplasty implant and graft (principal); K21.9 Gastro-esophageal reflux disease without esophagitis; R06.00 Dyspnea, unspecified; I25.10 Atherosclerotic heart disease of native coronary artery without angina pectoris; I65.23 Occlusion and stenosis of bilateral carotid arteries; I10 Essential (primary) hypertension; E78.2 Mixed hyperlipidemia; R53.83 Other fatigue
CPT/HCPCS: 78452; 93017; 93018; 93306; A9502

== ENCOUNTER 2024-01-15 10:32 | Emergency (ER) | payer MEDICARE, SELFPAY ==
[2024-01-15 10:49] VITALS: BP 156/89; PULSE 88; RESP 21; TEMP 36.7; O2SAT 96; BMI 25.5
--- NOTE | 2024-01-15 11:18 | ED_ITS ---
Discharge Plan Disposition Patient Disposition: Home, Self-Care Condition: Good Prescriptions Prescriptions: New baclofen 10 mg tablet 10 mg PO TID Qty: 30 0RF No Action aspirin 81 mg tablet,delayed release (DR/EC) 81 mg PO DAILY Qty: 90 3RF atorvastatin 20 mg tablet 20 mg PO DAILY metoprolol succinate 100 mg tablet extended release 24 hr 100 mg PO DAILY omeprazole 40 mg capsule,delayed release(DR/EC) 40 mg PO DAILY amlodipine 10 mg tablet 10 mg PO DAILY fluorometholone 0.1 % drops,suspension 1 drp ophthalmic (eye) DAILY cyclosporine [Restasis] 0.05 % dropperette 1 drp ophthalmic (eye) DAILY Patient Comments: INSTILL 1 DROP TWICE DAILY INTO AFFECTED EYE(S) Referrals Follow up/Referrals: Shahbaz Stack MD [Primary Care Provider] - See instructions Activity Restrictions/Add. Instructions Additional Instructions/Restrictions: If symptoms persist or worsen, follow up with PCP. Clinical Impressions Clinical Impression: Muscle spasm of back Low back pain Qualifiers: Chronicity: acute Back pain laterality: bilateral Sciatica presence: without sciatica Qualified Code(s): M54.50 - Low back pain, unspecified Instructions Patient Instructions: DI for Low Back Pain, DI for Muscle Spasm Discharge ED Provider: Crist[facility] General Stated complaint: lower back pain Mode of Arrival: Ambulatory Source of Information: Patient Limitations: No Limitations Time Seen by Provider: 01/15/24 11:04 Description of Symptoms (Recalled from Triage Doc. by RN): PATIENT C/O LOWER BACK PAIN THAT STARTED YESTERDAY. HE STATES HE WAS DOING LAUNDRY AND WHEN HE BENT OVER HIS BACK WENT OUT. PATIENT REPORTS A HISTORY OF BACK PROBLEMS HEENT Symptoms (Recalled from RN notes): No Resp Symptoms (Recalled from RN notes): No Skin Symptoms (Recalled from RN notes): No MS Symptoms (Recalled from RN notes): Yes Functional Status (Recalled from RN notes): WNL History of Present Illness Provider Complaint: Pt reports that while bending over to put laundry in the dryer he felt a catch and had pain in his lower back. 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 Related Data Home Medications Medication Instructions Recorded Confirmed amlodipine 10 mg tablet 10 mg PO DAILY 01/15/24 01/15/24 atorvastatin 20 mg tablet 20 mg PO DAILY 01/15/24 01/15/24 cyclosporine 0.05 % eye drops in a 1 drp ophthalmic (eye) DAILY 01/15/24 01/15/24 dropperette (Restasis) fluorometholone 0.1 % eye 1 drp ophthalmic (eye) DAILY 01/15/24 01/15/24 drops,suspension metoprolol succinate 100 mg 100 mg PO DAILY 01/15/24 01/15/24 tablet,extended release 24 hr omeprazole 40 mg capsule,delayed 40 mg PO DAILY 01/15/24 01/15/24 release Previous Rx's Medication Instructions Recorded aspirin 81 mg tablet,delayed 81 mg PO DAILY cardiac #90 tabs 05/12/22 release baclofen 10 mg tablet 10 mg PO TID #30 tabs 01/15/24 Allergies Allergy/AdvReac Type Severity Reaction Status Date / Time ibuprofen Allergy Verified 01/15/24 10:53 Worker's Comp Is this a Worker's Comp case?: No [facility] Disclaimer: The information contained in this section may have been updated after the patient was seen, as this information can be updated by other users. Medical History Malignant hypertension Acute renal failure Dyspnea CAD (coronary artery disease) Agatston coronary artery calcium score greater than 400 Elevated coronary artery calcium score Ex-smoker Abnormal electrocardiogram Dizziness Syncope, near Surgical History History of coronary artery stent placement Social History Smoking Status: Former smoker tobacco type: cigarettes second hand exposure: No alcohol intake: never substance use type: denies use current occupational status: retired Travel in the last 8 weeks: Inside the [place] household members: spouse housing: house current occupation: DIRECTOR OF [employer] current occupational exposures/hazards: No caffeine: Yes ROS Obtained: Yes All systems reviewed & no additional complaints except as documented Constitutional Constitutional: Reports system reviewed and no additional complaints, except as documented Eyes Eyes: Reports system reviewed and no additional complaints, except as documented ENT Ears, Nose, Mouth, and Throat: Reports system reviewed and no additional complaints, except as documented Cardiovascular Cardiovascular: Reports system reviewed and no additional complaints, except as documented Respiratory Respiratory: Reports system reviewed and no additional complaints, except as documented Gastrointestinal Gastrointestingal: Reports system reviewed and no additional complaints, except as documented Genitourinary Male Genitourinary: Reports system reviewed and no additional complaints, except as documented Musculoskeletal Musculoskeletal: Reports system reviewed and no additional complaints, except as documented, Reports abnormal gait, Reports back pain and Reports myalgias Integumentary/Breasts Skin/Breast: Reports system reviewed and no additional complaints, except as documented Neurologic Neurologic: Reports system reviewed and no additional complaints, except as documented and Reports abnormal gait Endocrine Endocrine: Reports system reviewed and no additional complaints, except as documented Hematologic/Lymphatic Henatologic/Lymphatic: Reports system reviewed and no additional complaints, except as documented Allergic/Immunologic Allergic/Immunologic: Reports system reviewed and no additional complaints, except as documented Physical Exam General General appearance: alert Comment: appears to be in pain Head Head exam: atraumatic and normocephalic Eye Eye exam: Present normal appearance ENT ENT exam: Present normal exam and normal oropharynx Neck Neck exam: Present normal inspection Chest Chest inspection: Present normal inspection and symmetric chest wall rise Respiratory Respiratory exam: Present normal lung sounds bilaterally Cardiovascular Cardiovascular exam: Present regular rate, normal rhythm and normal heart sounds Abdominal Exam Abdominal exam: Present soft and normal bowel sounds Extremities Exam Extremities exam: Present normal inspection Back Exam Back exam: Present tenderness, muscle spasm and paraspinal tenderness Back 1 view image: 2 1. paraspinal tenderness and muscle spasm Neurological Exam Neurological exam: Present alert and oriented X3 Psychiatric Psychiatric exam: Present normal affect and normal mood Skin Skin exam: Present warm, dry and intact Lymphatic Lymphatic Findings: no adenopathy Medical Decision Making Arnaldo Inquiry Pt receiving controlled substance: No Arnaldo was queried for this patient: No Vital Signs: 01/15/24 10:49 Temperature 98.0 F Temperature Source Temporal Artery Scan Pulse Rate [Right Brachial] 88 Respiratory Rate 21 Blood Pressure [Right Arm] 156/89 H Blood Pressure Mean [Right Arm] 111 Blood Pressure Source [Right Arm] Automatic Cuff Blood Pressure Position [Right Arm] Sitting 02 Sat by Pulse Oximetry 96 Oxygen Delivery Method Room Air
[2024-01-15] MEDS: DEXAMETHASONE 4MG/ML 1ML VIAL 8 MG IM (11:25)
[2024-01-15 11:29] VITALS: BP 156/89; PULSE 88; RESP 21; TEMP 36.7; O2SAT 96
== END 2024-01-15 11:32 | disposition home or self-care (01) ==
PROVIDERS: Emergency Provider Nurse Practitioner Family; PCP Family Medicine
DX: M54.50 Low back pain, unspecified (principal); M62.830 Muscle spasm of back
CPT/HCPCS: 96372; 99204; 99212; G0463; J1100

== ENCOUNTER 2024-01-30 11:00 | Outpatient (RCR) | payer MEDICARE, SELFPAY ==
--- NOTE | 2024-01-26 08:02 | HMH.PTOPEV ---
PT Outpatient Evaluation Rehab PT Outpatient Evaluation Start: 01/25/24 13:02 Freq: Status: Active Protocol: Document 01/26/24 07:36 PAGE (Rec: 01/26/24 08:01 PAGE [id number]) E-signed By Kareem Mahmood, PT Outpatient Therapy Subjective History Subjective History Patient is a 73 year old male presenting to outpatient PT with reports of acute on chronic LBP. No radicular symptoms. Symptoms have progressively gotten worse over the past 2 weeks. Special tests indicate L upslip of the inomminant. Patient reports that he was removing laundry from the washer when he had a sudden sharp pain/ spasm. Comorbidities include hx of ARF, CHF and HTN. New diagnosis of cancer in past 12 No months? Chief Complaint Pain,Spasms,Stiff,Paresthesia Symptom Type Ache,Sharp Symptoms Relieved By Ice,Prescription Meds Symptoms Aggravated By Standing,Bending/Stooping, Physical Activity,Walking, Lifting Prior Functional Limitations None Current Functional Limitations Lifting,Housework,Standing, Walking,Bending/Stooping Symptom Description Constant but Variable Level of pain today (0-10) 7 Pain scale - at its best (0-10) 4 Pain scale - at its worst (0-10) 10 Lumbopelvic Eval Posture Thoracic Spine Posture Standing Position Increased Kyphosis Lumbar Spine Posture Standing Position Decreased Lordosis Assistive device Assistive Devices None / NA Palapation tenderness left lumbar spinal tenderness Yes: QL 3/4 Accessory Movement L2 left L3 left L4 left L5 left Range of Motion Lumbar Spine Active Flexion Range of 66 Motion (degrees) Lumbar Spine Active Extension Range of 12 Motion (degrees) Left Lumbar Spine Lateral Flexion Active 14 Range of Motion (degrees) Right Lumbar Spine Lateral Flexion 15 Active Range of Motion (degrees) Lumbar Spine ROM Limitations Soft Tissue Tightness,Bony Restriction Manual Muscle Test Bilateral Knee Extension Strength Grade 5 Normal Knee Flexion Strength Grade 5 Normal Hip Flexion Strength Grade 5 Normal Extensor Hallucis Longus Strength Grade 5 Normal Ankle Dorsiflexion Strength Grade 5 Normal Gastronemius/Soleus Strength Grade 5 Normal Altered Sensation Left LE Dermatome Level S1 Comment intermittent sharp pain Special Tests Hip Piriformis Test Positive Left Sciatic Nerve Tension Test Positive Left Brooks Test Positive Sacroiliac Joint Compression Test Positive Left Sacroiliac Joint Distraction Test Positive Left Lumbar Long [place] Distraction Test/Manual Positive Traction Oswestry Index Section 1 Pain Intensity The pain comes and goes and is moderate Section 2 Personal Care (Washing,Dresing) increase the pain and I find it necessary to change my way of doing it Section 3 Lifting lifting heavy weights off the floor, but I can manage light to medium Section 4 Walking I have some pain when walking but it does not increase with distance Section 5 Sitting Pain prevents me from sitting for more than 10 minutes Section 6 Standing I have some pain on standing, but it does not increase with time Section 7 Sleeping Because of my pain, my normal night's sleep is less than 6 hours sleep Section 8 Social Life Pain has restricted my social life and I do not go out often Section 9 Traveling Pain restricts me to short necessary journeys under 30 minutes Section 10 Changing Degreee of Pain My pain seems to be getting better, but improvement is slow Score and Risk Level Oswestry Sc 26 Oswestry Risk Level Severe Disability Outpatient Therapy Assessment Impairments Problems/Impairmments Palpation Tenderness,Impaired Range of Motion,Impaired Strength,Impaired Walking, Impaired Standing,Impaired Sitting,Impaired Lifting, Impaired Household Care, Impaired Squatting,Impaired Bending,Subjective C/O Pain Prognosis Rehab Potential Good Clinical Impression Consistent with Diagnosis Yes Short Term Goals Number of Weeks 2 Decrease Subjective C/O Pain Yes: 5/10 at worst Patient to be Ind w/ HEP Yes Group Home Goals Number of Weeks 4-6 Decreased Palpation Tenderness Yes: 1/4 Increase Range of Motion Yes: WNL Increase Strength Yes: Core stabilizers 5/5 plank/side plank/bridge Increase Ability to Walk Yes: 30 min without difficulty Increase Ability to Stand Yes: Improve Ability For Household Care Yes Improve Oswestry Score Yes: <10 Decrease Subjective C/O Pain Yes: 2/10 at worst Outpatient Therapy Plan of Care Treatment Plan May Include Therapeutic Exercise Including Home Yes Exercise Program Manual Therapy Techniques Yes Neuromuscular Re-education Yes Therapeutic Activities to Return to Yes Previous Functional/Work Level Gait Training Yes ADL/Self Care Education Yes Mechanical Traction Yes Dry Needling Yes Thermal Modalities Yes Electrical Stimulation Yes Ultrasound/Phonophoresis Yes Iontophoresis Yes Orthotics/Bracing/Splinting Yes Massage Yes Eval/Re-Eval Yes Aquatic Therapy Yes Frequency Times per week 2 Duration Number of Weeks 4-6 Addendums This patient is a candidate for social No or vocational rehab? Patient/Guardian verbally acknowledges Yes understanding of treatment program and consents to further treatment? Patient/Guardian verbally acknowledges Yes understanding of diagnosis, prognosis and goals for treatment? Eval Complexity PT Charges 23399 - Moderate Complexity Shoulder/Elbow Eval Shoulder Objective Measurements Elbow Objective Measurements PHYSICIAN CERTIFICATION: I certify the specified therapy services for Fredis Romero are required, authorized, and reviewed every 30 days.
== END 2024-01-30 11:05 | disposition home or self-care (01) ==
LOC: PT 11:00
PROVIDERS: Visit Provider Family Medicine
DX: M54.9 Dorsalgia, unspecified (principal)
CPT/HCPCS: 97010; 97014; 97110; 97163; 97530; G0283

== ENCOUNTER 2024-08-02 15:44 | Emergency (ER) | payer MEDICARE, SELFPAY ==
[2024-08-02 15:45] VITALS: BP 160/98; PULSE 104; RESP 18; TEMP 36.6; O2SAT 94; BMI 25.1
--- NOTE | 2024-08-02 17:31 | HMH.EDGENADL ---
Discharge Plan Disposition Patient Disposition: Home, Self-Care Prescriptions Prescriptions: New chlordiazepoxide HCl 25 mg capsule See Rx Instructions .ROUTE .COMPLEX Qty: 15 0RF Rx Instructions: Day 1: 50mg every 6 hours Day 2: 25mg every 6 hours Day 3: 25mg every 12 hours Day 4: 25mg at night (Rx 15x 25mg tabs) Max 300mg per 24 hours No Action aspirin 81 mg tablet,delayed release (DR/EC) 81 mg PO DAILY Qty: 90 3RF atorvastatin 20 mg tablet 20 mg PO DAILY metoprolol succinate 100 mg tablet extended release 24 hr 100 mg PO DAILY omeprazole 40 mg capsule,delayed release(DR/EC) 40 mg PO DAILY amlodipine 10 mg tablet 10 mg PO DAILY fluorometholone 0.1 % drops,suspension 1 drp ophthalmic (eye) DAILY cyclosporine [Restasis] 0.05 % dropperette 1 drp ophthalmic (eye) DAILY Patient Comments: INSTILL 1 DROP TWICE DAILY INTO AFFECTED EYE(S) baclofen 10 mg tablet 10 mg PO TID Qty: 30 0RF Referrals Follow up/Referrals: Shahbaz Stack MD [Primary Care Provider] - See instructions Activity Restrictions/Add. Instructions Additional Instructions/Restrictions: Chlordiazepoxide (Librium) taper as described. Consultation with addiction customer support analyst has been placed. Call your family doctor to establish care for this visit to the emergency department and schedule follow-up within 48 hours to ensure improvement. If you have any worsening of your condition or any other concerning signs or symptoms, return to the emergency department or your primary care doctor for further evaluation. Clinical Impressions Clinical Impression: Alcohol withdrawal Qualifiers: Complication of substance-induced condition: uncomplicated Qualified Code(s): F10.930 - Alcohol use, unspecified with withdrawal, uncomplicated Print Language Print Language: Nauruan Discharge ED Provider: Carlos Lucero General Adult HPI General Chief complaint: Weakness Stated complaint: weakness nausea Time Seen by Provider: 08/02/24 16:39 History of Present Illness HPI narrative: Please note that above description of symptoms, in this electronic medical record under categorization of recalled from ER triage doctor by RN are reflective of an initial nursing assessment, however, is not reflective of my full history and physical exam that was personally taken and clarified. Consequentially, this preceding description of symptoms, which may include the patient's categorized chief complaint in the EMR, do not reflect my personal clinical impression, and the ultimate description of history of present illness and patient stated complaints should be deferred to this section of the note. Unless stated otherwise or congruent with this section of the note, additional signs, symptoms, or incongruence should be interpreted as inaccurate with my clinical impression. Related Data Home Medications ?Medication ?Instructions ?Recorded ?Confirmed amlodipine 10 mg tablet 10 mg PO DAILY 01/15/24 03/25/24 atorvastatin 20 mg tablet 20 mg PO DAILY 01/15/24 03/25/24 cyclosporine 0.05 % eye drops in a 1 drp ophthalmic (eye) DAILY 01/15/24 03/25/24 dropperette (Restasis) fluorometholone 0.1 % eye 1 drp ophthalmic (eye) DAILY 01/15/24 03/25/24 drops,suspension metoprolol succinate 100 mg 100 mg PO DAILY 01/15/24 03/25/24 tablet,extended release 24 hr omeprazole 40 mg capsule,delayed 40 mg PO DAILY 01/15/24 03/25/24 release Previous Rx's ?Medication ?Instructions ?Recorded aspirin 81 mg tablet,delayed 81 mg PO DAILY cardiac #90 tabs 05/12/22 release baclofen 10 mg tablet 10 mg PO TID #30 tabs 01/15/24 chlordiazepoxide HCl 25 mg capsule See Rx Instructions .Route 08/02/24 .COMPLEX #15 caps Allergies Allergy/AdvReac Type Severity Reaction Status Date / Time ibuprofen Allergy Verified 03/25/24 10:47 [facility] Disclaimer: The information contained in this section may have been updated after the patient was seen, as this information can be updated by other users. Medical History Malignant hypertension Acute renal failure Dyspnea CAD (coronary artery disease) Agatston coronary artery calcium score greater than 400 Elevated coronary artery calcium score Ex-smoker Abnormal electrocardiogram Dizziness Syncope, near Surgical History History of coronary artery stent placement Social History Smoking Status: Former smoker tobacco type: cigarettes second hand exposure: No alcohol intake: never substance use type: denies use current occupational status: retired Travel in the last 8 weeks: Inside the [place] household members: spouse housing: house current occupation: DIRECTOR OF [employer] current occupational exposures/hazards: No caffeine: Yes Have you lived/traveled outside US in past 30 days?: No Contact w/someone who lives/traveled outside US past 30 days?: No Exposure to someone with infectious disease in past 14 days?: No Do you have a fever (greater than 100.4 F or 38 C)?: No Have you tested positive for COVID-19: No Exposed to someone with COVID-19 in past 14 days?: No Do you have a sore throat?: No Do you have a cough?: No Do you have any weakness?: Yes Do you have any diarrhea?: No Are you experiencing any unusual bleeding?: No Do you have any muscle aches/pain?: No Do you have any abdominal pain?: No Are you experiencing loss of taste or smell?: No Other Medical History Have you received the Flu Vaccine for this season: Yes Have you received the Pneumonia Vaccine: Yes ROS Obtained: Yes All systems reviewed & no additional complaints except as documented Physical Exam General General appearance: alert and anxious (Tremulous) Head Head exam: atraumatic and normocephalic Eye Eye exam: Present normal appearance, PERRL and EOMI Neck Neck exam: Present normal inspection, full ROM and trachea midline Respiratory Respiratory exam: Absent respiratory distress, wheezes, stridor, accessory muscle use or prolonged expiratory phase Cardiovascular Cardiovascular exam: Present other (Pulses equal symmetric in upper and lower extremities) Abdominal Exam Abdominal exam: Present soft; Absent distention, tenderness or pulsatile mass Extremities Exam Extremities exam: Absent edema Neurological Exam Neurological exam: Present alert, oriented X3, CN II-XII intact and other (Tremulous); Absent motor sensory deficit Skin Skin exam: Present warm and dry; Absent diaphoresis or erythema Medical Decision Making Medical Records Medical records reviewed: Yes I reviewed the patient's medical records. Screening: Per USPSTF and CDC recommendations, given the prevalence of disease in our region, it is our hospital?s policy to screen for HIV and viral Hepatitis for all patients aged 18 and over and those with ongoing risk factors. Arnaldo Inquiry Pt receiving controlled substance: No Arnaldo was queried for this patient: No Vital Signs: 08/02/24 15:45 08/02/24 18:05 08/02/24 18:36 Temperature 97.8 F Temperature Source Oral Pulse Rate 109 H 115 H Pulse Rate [Left Radial] 104 H Respiratory Rate 18 28 H Blood Pressure 151/106 H 158/140 H Blood Pressure [Right Arm] 160/98 H Blood Pressure Mean [Right Arm] 118 Blood Pressure Source Blood Pressure Position Sitting 02 Sat by Pulse Oximetry 94 L 95 95 Oxygen Delivery Method Room Air Room Air Room Air 08/02/24 22:33 Temperature 97.8 F Temperature Source Oral Pulse Rate 115 H Pulse Rate [Left Radial] Respiratory Rate 18 Blood Pressure 173/109 H Blood Pressure [Right Arm] Blood Pressure Mean [Right Arm] Blood Pressure Source Automatic Cuff Blood Pressure Position Sitting 02 Sat by Pulse Oximetry Oxygen Delivery Method Room Air Lab Data Lab Results 08/02/24 17:40: WBC 5.9, RBC 4.48 L, Hgb 15.0, Hct 41.4 L, MCV 92.4, MCH 33.5 H, MCHC 36.2 H, RDW 11.6, Plt Count 162, MPV 9.8, Neut % (Auto) 76.2, Lymph % (Auto) 12.4, Ray % (Auto) 9.4 H, Eos % (Auto) 0.3, Baso % (Auto) 1.4, Neut # (Auto) 4.5, Lymph # (Auto) 0.7, Ray # (Auto) 0.6, Eos # (Auto) 0.0, Baso # (Auto) 0.1, PT 11.7, INR 1.05, APTT 27.1, D-Dimer 0.77 H, Sodium 141, Potassium 3.3 L, Chloride 101, Carbon Dioxide 21 L, Anion Gap 22.3 H, BUN 12, Creatinine 0.70, Estimated GFR 110, Est GFR ( Amer) 133, Glucose 100, Calcium 9.8, Magnesium 0.9 L, Total Bilirubin 1.4 H, AST 165 H, ALT 95 H, Alkaline Phosphatase 61, Troponin I < 0.01, Total Protein 7.8, Albumin 5.1 H, Globulin 2.7, Albumin/Globulin Ratio 1.9 H, TSH 2.04, Thyroxine (T4) 9.2, HIV Ag/Ab Combo Qual Negative 08/02/24 21:15: Troponin I 0.01, Urine Opiates Screen Negative, Urine Methadone Screen Negative, Ur Barbituates Screen Negative, Ur Phencyclidine Scrn Negative, Ur Amphetamines Screen Negative, U Benzodiazepines Scrn Negative, Urine Cocaine Screen Negative, U Marijuana (THC) Screen Negative 08/02/24 17:40 08/02/24 17:40 Orders (Tests/Meds): ED MEDICATIONS Discontinued Medications Generic Name Dose Route Start Last Admin Trade Name Sadie PRN Reason Stop Dose Admin Chlordiazepoxide HCl 50 mg 08/02/24 18:07 08/02/24 19:07 Chlordiazepoxide 25mg Capsule PO 08/02/24 18:08 50 mg ONCE ONE Administration Diazepam 5 mg 08/02/24 18:19 08/02/24 19:07 Diazepam 10mg/2ml Syringe IV 08/02/24 18:20 5 mg ONCE ONE Administration Diazepam 10 mg 08/02/24 20:19 08/02/24 20:23 Diazepam 10mg/2ml Syringe IV 08/02/24 20:20 10 mg ONCE ONE Administration Multivitamins 10 ml/ Thiamine 1,015 mls @ 500 mls/hr 08/02/24 18:05 08/02/24 19:08 HCl 100 mg/ Magnesium Sulfate IV 08/02/24 20:06 500 mls/hr 2 gm/ Lactated Ringer's .Q2H2M ONE Administration Magnesium Oxide 800 mg 08/02/24 18:05 08/02/24 19:07 Magnesium Oxide 400mg Tablet PO 08/02/24 18:06 800 mg ONCE ONE Administration ORDERS Category Date Time Status Consult Injection Molding Machine Tender [CONS] Routine Cons 08/02/24 18:52 Active Complete Blood Count Auto Diff Stat Lab 08/02/24 17:40 Completed Comprehensive Metabolic Panel Stat Lab 08/02/24 17:40 Completed D-Dimer Stat Lab 08/02/24 17:40 Completed HIV Combo Stat Lab 08/02/24 17:40 Completed Hep C Ab with Reflex to RNA Stat Lab 08/02/24 17:40 Received Magnesium Stat Lab 08/02/24 17:40 Completed PT INR [Prothrombin Time INR] Stat Lab 08/02/24 17:40 Completed PTT [Activated Partial Thrombo Time] Stat Lab 08/02/24 17:40 Completed T4 (Thyroxine) Stat Lab 08/02/24 17:40 Completed TSH [Thyroid Stimulating Hormone] Stat Lab 08/02/24 17:40 Completed Troponin I Q3H Lab 08/02/24 21:15 Completed Troponin I Stat Lab 08/02/24 17:40 Completed UDS [Drug Screen,Urine] Stat Lab 08/02/24 21:15 Completed Medical Decision Narrative: 74-year-old male history of hypertension, hyperlipidemia, CAD status post stenting on daily aspirin, anxiety, prostate cancer presenting with tremors. Patient states that he was started on duloxetine. He took his first dose this morning around 10 AM. About 2 hours later, patient states that he was tremulous, felt weak and shaky. Called his daughter to take him to the emergency department. Patient arrives and states that he has no other symptoms, no chest pain, shortness of breath, unilateral deficits, any other neurologic deficits. He does state that he has been nauseated, but no vomiting. No diarrhea, fevers or chills. No sick contacts that he knows of. History was obtained via conversation with patient and daughter. On arrival, patient hemodynamically stable, alert, oriented x4, appropriate, GCS 15, moving all extremities spontaneously, pupils equal and reactive to light. Full physical exam performed and significant for well-appearing male no acute distress. He is tremulous and appears anxious. Tachycardic, hypertensive. Lungs are clear, otherwise normal cardiac exam. Neurologically intact with NIHSS 0. Differential includes medication side effect, endocrinologic abnormality, metabolic abnormality, stimulant use, intoxication, withdrawal, among others. Patient placed on continuous cardiac monitoring and continuous pulse ox with initial blood pressure 160/98, heart rate 104, saturation 94% on room air. I consider giving patient a beta-giovanny and had conversation about this with family, however felt this would mask symptoms and patient in no acute distress. Deferred at this time. Workup independently interpreted and significant for nonactionable CBC. Patient's chemistry with mild hypokalemia, hypomagnesemia with LFTs consistent with chronic alcohol abuse. Thyroid studies are negative. On reevaluation, patient admits to daily drinking. Last drink was over 24 hours ago. I feel the duloxetine is likely confounding symptoms, however this is clinically consistent with alcohol withdrawal. Patient was given oral Librium 50 mg, IV fluids and electrolyte/vitamins. Initial dose of 5 mg IV diazepam. Outside discussion with patient's primary care provider who is agreeable to patient follow-up should patient feel comfortable going home and looking better after treatments. Prolonged discussion had with patient and family. Patient initially not willing to stop drinking, however given further conversing with myself and family, patient states that he is agreeable to trialing alcohol withdrawal with Librium and trying to abstain. Reevaluation, patient still having tremors. Given 10 more milligrams of IV diazepam.On reevaluation, patient asymptomatic ready to go home and I feel this is appropriate. Minimally tachycardic, no longer tremulous and looks much better. Given patient presentation, workup, history, this most likely represents acute alcohol withdrawal. Recommended he continue his SNRI and he voiced his understanding. Because patient at baseline without signs or symptoms of clinical decompensation, deemed appropriate for discharge. Results were relayed to patient who voiced understanding and were agreeable to outpatient management and follow up. I discussed my clinical impression with patient and answered all questions. At this time, the evidence for any other entities in the differential is insufficient to warrant any further testing or ED observation. This was explained as well. Advisory was given that persistent or worsening symptoms require further evaluation. I confirmed the understanding of this discussion. Health Information Specialist disclaimer Much of this encounter note is an electronic quality assurance lab technician spoken language to printed text. Electronic quality assurance lab technician of the spoken language may permit errors. Although I have reviewed the note, some errors may still exist. Critical Care Critical Care Time Critical Care Time: Yes (toxicologic) Attestation: On 08/02/24, the high probability of a clinically significant, sudden or life threatening deterioration of the following system(s) required my full and direct attention, intervention and personal management. The time I documented below is in addition to time spent performing reported procedures but includes the following listed in this critical care notation. Total Time Total Critical Care Time: 45
[2024-08-02 17:52] LABS: Basophils # 0.1 K/mm3 (0-0.2); Basophils % 1.4 % (0.1-2.0); Eosinophils % 0.3 % (0.1-12.0); Hematocrit 41.4 % (42.0-52.0); Lymphocytes # 0.7 K/mm3 (0.7-4.5); Lymphocytes % 12.4 % (10-50); Mean Corpuscular HGB Conc 36.2 g/dL (31.8-35.4); Mean Corpuscular Hemoglobin 33.5 pg (27.0-31.2); Mean Corpuscular Volume 92.4 fl (80-94); Mean Platelet Volume 9.8 fl (7.4-10.4); Monocytes # 0.6 K/mm3 (0.1-1.0); Monocytes % 9.4 % (1.7-9.3); Neutrophils # 4.5 K/mm3 (1.8-7.8); Neutrophils % 76.2 % (37.0-80.0); Platelet Count 162 K/mm3 (142-424); Red Blood Count 4.48 M/mm3 (4.60-6.20); Red Cell Distribution Width 11.6 % (11.5-17.5); White Blood Count 5.9 K/mm3 (4.8-10.8)
[2024-08-02 18:00] LABS: Alanine Aminotransferase 95 U/L (12-78); Albumin Level 5.1 g/dl (3.5-5.0); Albumin/Globulin Ratio 1.9 (1.1-1.8); Alkaline Phosphatase 61 U/L (38-126); Anion Gap 22.3 mEq/L (5-15); Aspartate Amino Transferase 165 U/L (17-59); Bilirubin,Total 1.4 mg/dl (0.2-1.3); Blood Urea Nitrogen 12 mg/dl (9-20); Calcium 9.8 mg/dl (8.4-10.2); Carbon Dioxide 21 mmol/L (22.0-30.0); Chloride 101 mmol/L (98-107); Estimated Glomerular Filt Rate 110 ml/min (>60); GFR (African American) 133 ML/MIN (>60); Globulin 2.7 g/dL (1.3-3.2); Glucose 100 mg/dl (74-100); Potassium 3.3 mmoL/L (3.5-5.1); Sodium 141 mmol/L (136-145); Total Protein,Serum 7.8 g/dl (6.3-8.2)
[2024-08-02 18:02] LABS: Activated Partial Thrombo Time 27.1 seconds (22.8-30.6); INR 1.05 (0.9-1.1); Prothrombin Time 11.7 seconds (10.1-12.5)
[2024-08-02 18:03] LABS: Magnesium 0.9 mg/dl (1.6-2.3)
[2024-08-02 18:05] VITALS: BP 151/106; PULSE 109; O2SAT 95
--- NOTE | 2024-08-02 18:05 | PC.NURSE ---
rounded on patient; no needs at this time.
[2024-08-02 18:07] LABS: D-Dimer 0.77 ug/mL (0.0-0.5)
[2024-08-02 18:17] LABS: T4 (Thyroxine) 9.2 ug/dl (5.53-11.0); Troponin I < 0.01 ng/ml (0.00-0.034)
[2024-08-02 18:31] LABS: Thyroid Stimulating Hormone 2.04 uIU/mL (0.465-4.68)
[2024-08-02 18:36] VITALS: BP 158/140; PULSE 115; RESP 28; O2SAT 95
[2024-08-02] MEDS: diazePAM 10MG/2ML SYRINGE 5 MG IV (19:07)
[2024-08-02] MEDS: MAGNESIUM OXIDE 400MG TABLET 800 MG PO (19:07)
[2024-08-02] MEDS: MVI, ADULT NO.1 WITH VIT K 10 ML, THIAMINE HCL 100 MG, MAGNESIUM SULFATE 2 GM in LACTAT... 500 ML IV (19:08)
[2024-08-02 20:20] LABS: HIV Combo NEGATIVE (Negative)
[2024-08-02] MEDS: diazePAM 10MG/2ML SYRINGE 10 MG IV (20:23)
[2024-08-02 21:40] LABS: Barbiturates Screen,Urine Negative ng/ml (<200)
[2024-08-02 21:41] LABS: Benzodiazepines Screen,Urine Negative ng/ml (<200)
[2024-08-02 21:43] LABS: Cannabinoid Screen,Urine Negative ng/ml (<50); Cocaine Screen,Urine Negative ng/ml (<300)
[2024-08-02 21:44] LABS: Methadone Screen,Urine Negative ng/ml (<300)
[2024-08-02 21:45] LABS: Opiate Screen,Urine Negative ng/ml (<300); Phencyclidine Screen,Urine Negative ng/ml (<25)
[2024-08-02 21:47] LABS: Troponin I 0.01 ng/ml (0.00-0.034)
[2024-08-02 21:49] LABS: Amphetamine/Metha Screen,Urine Negative ng/ml (<1000)
[2024-08-02 22:33] VITALS: BP 173/109; PULSE 115; RESP 18; TEMP 36.6; O2SAT 96
--- NOTE | 2024-08-02 23:10 | PEERSUPPORT ---
Peer Support Note Patient Information Patient Information: DOS:08/02/2024 ? Reason: AUD/Ps consult ? ETOH Last Ingested: Made a drink today only took a few sips, but didn?t feel normal. Called his to let her know they had to call someone that something was wrong. ? ETOH HX: 1.75 liter of vodka per week recently (handle bottle of [employer]itos Vodka) Previous treatment: None ? Longest Length of Sobriety: Pt stated only a couple of days, while staying at a friend's house who did not drink. ? Support System: ? Current Stressors: Recently diagnosed with prostate cancer; treatment to start next week; 32x chemo rounds. Pt discloses family history of father and grandfather with same diagnosis. Pt is concerned of withdrawal interested in having a medication to assist. ? Motivation for Change: Pt stated he is aware that he needs to stop drinking, he says with his recent diagnosis with prostate cancer that he know his health is important. He is tearful when sharing of his father who was diagnosed with prostate cancer that he was able to stop drinking and he hopes to figure out how he is going to do that. ? Ps shared personal experiences relevant to building awareness to help offered and community of recovery through many approaches including levels of care from med detox/stabilization, residential treatment, and outpatient. ? Potential Barriers: People who actively drink. Places of access to liquor. ? Recovery Plan: Refrain from drinking alcohol. Referral to [facility] for specialized treatment for AUD. ED Carlos Lucero to Rx Librium for withdrawal. Healthy communication with family and friends to make aware of recovery plan for support. ? Ps provided contact list: Medical Detox/Stabilization; [facility] Contact information
== END 2024-08-02 22:34 | disposition home or self-care (01) ==
PROVIDERS: Emergency Provider Emergency Medicine; PCP Family Medicine
DX: F10.930 Alcohol use, unspecified with withdrawal, uncomplicated (principal); R53.1 Weakness; R11.0 Nausea; R25.1 Tremor, unspecified
CPT/HCPCS: 36415; 80053; 80307; 83735; 84436; 84443; 84484; 85025; 85378; 85610; 85730; 87389; 96365; 96366; 96374; 96375; 99291; J3360; J3411; J7120

== ENCOUNTER 2024-09-19 13:05 | Inpatient (IN) | payer MEDICARE, OTHER, SELFPAY ==
[2024-09-19] VITALS (8 sets, daily range): BP systolic 115–166; BP diastolic 51–90; PULSE 52–114; RESP 18–22; TEMP 36.5; O2SAT 90–98; BMI 19.5
--- NOTE | 2024-09-19 13:28 | CT_ITS ---
FINAL REPORT TECHNIQUE: Thin section axial images were obtained from skull base to vertex without contrast. Coronal reconstruction images were obtained from the axial data. Exam was performed using dose reduction techniques such as automated exposure control, adjustment of the mA and kV according to patient size, and use of iterative reconstruction technique. CLINICAL HISTORY: AMS, fall COMPARISON: 08/15/2024 FINDINGS: There is atrophy. No mass effect or midline shift. No intracranial hemorrhage. No hydrocephalus. Periventricular low density is likely related to changes of chronic small vessel ischemia. The basilar cisterns are preserved. The posterior fossa is without acute abnormality. The soft tissues are without acute abnormality. No acute osseous abnormality is identified. IMPRESSION: No acute intracranial abnormality. Atrophy and changes suggesting chronic small vessel ischemia, stable since the prior CT of 08/15/2024. Reviewed, Interpreted and Dictated by Petty Ferrer MD Transcribed by Bisi Beaver Authenticated and [facility]
--- NOTE | 2024-09-19 13:28 | CT_ITS ---
FINAL REPORT TECHNIQUE: Thin section axial images were obtained through the cervical spine without contrast. Multiplanar reconstruction images were obtained from the axial data. Exam was performed using dose reduction techniques. This study was performed with techniques to keep radiation doses as low as reasonably achievable (ALARA). Individualized dose reduction techniques using automated exposure control or adjustment of mA and/or kV according to the patient's size were employed. CLINICAL HISTORY: Fall, AMS COMPARISON: None FINDINGS: There is no acute fracture or acute malalignment of the cervical spine. There is no evidence of unilateral or bilateral facet lock. Vertebral body height is preserved. Mild degenerative disc disease is present, most severe at the C6-7 level. There is a small amount of fluid in the inferior left mastoid air cells. No acute paraspinal abnormality is identified. IMPRESSION: No acute osseous abnormality of the cervical spine. Mild degenerative disc disease, most severe at the C6-7 level. Reviewed, Interpreted and Dictated by Petty Ferrer MD Transcribed by Bisi Beaver Authenticated and [facility]
--- NOTE | 2024-09-19 13:28 | XR_ITS ---
FINAL REPORT CLINICAL HISTORY: Fall, AMS COMPARISON: None FINDINGS: A portable view of the chest was obtained. Cardiac and mediastinal silhouettes are within normal limits. The lungs are clear. There is no pleural effusion or pneumothorax. IMPRESSION: No acute process on this portable exam. Reviewed, Interpreted and Dictated by Petty Ferrer MD Transcribed by Bisi Beaver Authenticated and [facility]
[2024-09-19 13:41] LABS: Basophils # 0.1 K/mm3 (0-0.2); Basophils % 0.6 % (0.1-2.0); Eosinophils % 0.1 % (0.1-12.0); Hematocrit 45.6 % (42.0-52.0); Hemoglobin 15.3 g/dL (14.1-18.0); Lymphocytes % 6.5 % (10-50); Mean Corpuscular HGB Conc 33.6 g/dL (31.8-35.4); Mean Corpuscular Hemoglobin 31.4 pg (27.0-31.2); Mean Corpuscular Volume 93.6 fl (80-94); Mean Platelet Volume 11.7 fl (7.4-10.4); Monocytes # 1.2 K/mm3 (0.1-1.0); Monocytes % 7.7 % (1.7-9.3); Neutrophils # 13.4 K/mm3 (1.8-7.8); Neutrophils % 84.7 % (37.0-80.0); Platelet Count 353 K/mm3 (142-424); Red Blood Count 4.87 M/mm3 (4.60-6.20); Red Cell Distribution Width 13.2 % (11.5-17.5); White Blood Count 15.8 K/mm3 (4.8-10.8)
[2024-09-19 13:43] LABS: MANUAL DIFFERENTIAL MANUAL DIFFERENTIAL (MANUAL DIFF)
--- NOTE | 2024-09-19 13:44 | PC.NURSE ---
pts states since they got home yesterday evening from [place] that he has been in the floor. The reports that he slid out of bed, he did not actually fall. The did not elaborate any further. pts call blevins in in reach.
--- NOTE | 2024-09-19 13:45 | PC.NURSE ---
respiratory aware of vbg order
--- NOTE | 2024-09-19 13:46 | PC.NURSE ---
Lab headed down to draw second set of blood cultures.
--- NOTE | 2024-09-19 13:47 | PC.NURSE ---
Spouse at BS
[2024-09-19 13:53] LABS: VBG Base Excess -9.4 mmol/L (-2.4-2.3); VBG HCO3 16.1 mmol/L (23-30); VBG Oxygen Saturation 68.9 % (50-70); VBG PCO2 29.3 mmol/L (35-51); VBG PH 7.36 mmol/L (7.31-7.41); VBG PO2 37.8 mmol/L (28-40)
[2024-09-19 13:54] LABS: Lactate Venous 2.9 mmol/L (0.4-2.0)
[2024-09-19 14:03] LABS: Albumin Level 5.1 g/dl (3.5-5.0); Chloride 115 mmol/L (98-107); Potassium 4.8 mmoL/L (3.5-5.1)
[2024-09-19 14:06] LABS: Alanine Aminotransferase 38 U/L (12-78); Alkaline Phosphatase 88 U/L (38-126); Anion Gap 23.8 mEq/L (5-15); Aspartate Amino Transferase 57 U/L (17-59); Bilirubin,Total 1.9 mg/dl (0.2-1.3); Blood Urea Nitrogen 45 mg/dl (9-20); Carbon Dioxide 16 mmol/L (22.0-30.0); Creatine Kinase 199 U/L (55-170); Creatinine Clearance Estimated 25 mL/min (50-200); Estimated Glomerular Filt Rate 27 ml/min (>60); GFR (African American) 32 ML/MIN (>60); Total Protein,Serum 9.1 g/dl (6.3-8.2)
[2024-09-19 14:07] LABS: Calcium 11.1 mg/dl (8.4-10.2); Glucose 126 mg/dl (74-100)
[2024-09-19 14:08] LABS: Sodium 150 mmol/L (136-145)
--- NOTE | 2024-09-19 14:08 | CT_ITS ---
FINAL REPORT TECHNIQUE: Thin section axial images were obtained from the thoracic inlet through the upper abdomen after intravenous contrast injection. Reconstruction images were obtained from the axial data. Exam was performed using dose reduction technique. This study was performed with techniques to keep radiation doses as low as reasonably achievable (ALARA). Individualized dose reduction techniques using automated exposure control or adjustment of mA and/or kV according to the patient's size were employed. CLINICAL HISTORY: AMS, aspiration COMPARISON: 08/15/2024 FINDINGS: There is no mediastinal, hilar, or axillary lymphadenopathy. There is no pleural or pericardial effusion. Changes of emphysema are present. Since the prior CT of August 15, the consolidation in the lung bases has improved. However, there are now bilateral nodular and reticular nodular opacities in the lower lung mosley, that may represent new bilateral pneumonia or evolution of the previously seen pneumonia. No acute osseous abnormality. IMPRESSION: Consolidation in the lung bases has improved since August 15. However, there are now bilateral nodular and reticulonodular opacities in the lower lung mosley, that may represent new bilateral pneumonia or the evolution of previously seen pneumonia. Reviewed, Interpreted and Dictated by Petty Ferrer MD Transcribed by Bisi Beaver Authenticated and [facility]
--- NOTE | 2024-09-19 14:08 | CT_ITS ---
FINAL REPORT TECHNIQUE: Thin section axial images are obtained through the abdomen and pelvis after intravenous contrast. Reconstruction images were obtained from the axial data. Exam was performed using dose reduction techniques. This study was performed with techniques to keep radiation doses as low as reasonably achievable (ALARA). Individualized dose reduction techniques using automated exposure control or adjustment of mA and/or kV according to the patient's size were employed. CLINICAL HISTORY: Tenderness, AMS COMPARISON: None FINDINGS: LIVER: The liver demonstrates a nodular contour, with a small cyst in the left lobe of the liver. GALLBLADDER/BILIARY SYSTEM: The gallbladder is distended. No gallstones are visualized. No biliary dilatation. SPLEEN: Unremarkable. PANCREAS: Unremarkable. ADRENALS: Unremarkable. KIDNEYS/URETERS/BLADDER: No hydronephrosis, renal mass, or renal stone. GI TRACT: No small bowel obstruction or dilatation. Normal appendix. There is pandiverticulosis without evidence of diverticulitis. There is a large amount of rectal stool present consistent with rectal fecal impaction. PELVIC ORGANS: Unremarkable for age. LYMPH NODES/RETROPERITONEUM/MESENTERY: No lymphadenopathy. No abdominal aortic aneurysm. ABDOMINAL WALL: The abdominal wall is intact. FREE FLUID: No ascites. BONES: There is a sclerotic lesion in the L1 vertebral body, and sclerotic metastases are not excluded. IMPRESSION: Large amount of rectal stool, consistent with rectal fecal impaction. Distended gallbladder, without gallstones visualized. Sclerotic lesion of the L1 vertebral body, sclerotic metastases not excluded. Reviewed, Interpreted and Dictated by Petty Ferrer MD Transcribed by Bisi Beaver Authenticated and [facility] [place]
--- NOTE | 2024-09-19 14:09 | PC.NURSE ---
aware of NA+ 150
[2024-09-19 14:11] LABS: Albumin/Globulin Ratio 1.3 (1.1-1.8); Ethyl Alcohol < 10 mg/dl (0-10)
--- NOTE | 2024-09-19 14:15 | ED_ITS ---
Discharge Plan Disposition Patient Disposition: Admitted Clinical Impressions Clinical Impression: Acute hypernatremia, Altered mental status, Dehydration, Adult failure to thrive Discharge ED Provider: Sherley [facility] HPI <Jeannette Pérez MD - Last Filed: 09/19/24 16:03> General Chief complaint: Fall Stated complaint: fall on 09/18/24 & alcohol withdrawls Time Seen by Provider: 09/19/24 13:28 Mode of Arrival: EMS Source of Information: EMS Limitations: Altered Mental Status Description of Symptoms (Recalled from ER Triage Doc. by RN): EMS reports the pt fell sometime last night out of bed and was found around 1300 on the floor by his . Unknown if the pt is injured due to baseline AMS. no obvious ecchymosis or deformities. According to EMS pts requested he be d/c from [place] yesterday. pt was reportedly in [facility] for 5wks after being coded on 08/15 with active alcohol withdrawel. Since this has occured pts is A&O x0. GCS 11. Pt moans but does not communicate verbally. pt has no drank since 08/15. He was previously a heavy daily vodka drinker. pt is currently being treated for prostate cancer. About 1wk prior to him coding he received his first testosterone blocking injection. History of Present Illness HPI narrative: Fredis Romero is a 74 y/o male presenting for altered mental status. History obtained from patient's at bedside as patient is unable to provide history himself due to altered mental status. states patient was discharged from [place] after a 5-week hospitalization consisting of alcohol withdrawals, pneumonia, encephalopathy. She was concerned that no progress is being made and she decided to take him home. states patient briefly coded while receiving a lumbar puncture during the hospitalization and was placed on a ventilator. She states prior to taking him home there was discussion of a PEG tube because patient was now refusing to eat and was pocketing food in his mouth. When she brought him home last night, she had 2 friends come over and help her get him into bed. She states he slid out of bed and laid on the floor last night and slept there. She provided him a pillow and a blanket. She was unable to get him off the floor herself. She ultimately decided to call an ambulance earlier this afternoon to have him evaluated. Related Data Home Medications ?Medication ?Instructions ?Recorded ?Confirmed amlodipine 10 mg tablet 10 mg PO DAILY 01/15/24 03/25/24 atorvastatin 20 mg tablet 20 mg PO DAILY 01/15/24 03/25/24 cyclosporine 0.05 % eye drops in a 1 drp ophthalmic (eye) DAILY 01/15/24 03/25/24 dropperette (Restasis) fluorometholone 0.1 % eye 1 drp ophthalmic (eye) DAILY 01/15/24 03/25/24 drops,suspension metoprolol succinate 100 mg 100 mg PO DAILY 01/15/24 03/25/24 tablet,extended release 24 hr omeprazole 40 mg capsule,delayed 40 mg PO DAILY 01/15/24 03/25/24 release Previous Rx's ?Medication ?Instructions ?Recorded aspirin 81 mg tablet,delayed 81 mg PO DAILY cardiac #90 tabs 05/12/22 release baclofen 10 mg tablet 10 mg PO TID #30 tabs 01/15/24 chlordiazepoxide HCl 25 mg capsule See Rx Instructions .Route 08/02/24 .COMPLEX #15 caps Allergies Allergy/AdvReac Type Severity Reaction Status Date / Time ibuprofen Allergy Unknown Verified 09/19/24 14:45 allergy reaction PFS <Jeannette Pérez MD - Last Filed: 09/19/24 16:03> [facility] Disclaimer: The information contained in this section may have been updated after the patient was seen, as this information can be updated by other users. Medical History Malignant hypertension Acute renal failure Dyspnea CAD (coronary artery disease) Agatston coronary artery calcium score greater than 400 Elevated coronary artery calcium score Ex-smoker Abnormal electrocardiogram Dizziness Syncope, near Surgical History History of coronary artery stent placement Social History Smoking Status: Unknown if ever smoked second hand exposure: No alcohol intake: never substance use type: denies use current occupational status: retired Travel in the last 8 weeks: Inside the [place] household members: spouse housing: house current occupation: DIRECTOR OF [employer] current occupational exposures/hazards: No caffeine: Yes Have you lived/traveled outside US in past 30 days?: No Contact w/someone who lives/traveled outside US past 30 days?: No Exposure to someone with infectious disease in past 14 days?: No Do you have a fever (greater than 100.4 F or 38 C)?: No Have you tested positive for COVID-19: No Exposed to someone with COVID-19 in past 14 days?: No Do you have a sore throat?: No Do you have a cough?: No Do you have any weakness?: No Do you have any diarrhea?: No Are you experiencing any unusual bleeding?: No Do you have any muscle aches/pain?: No Do you have any abdominal pain?: No Are you experiencing loss of taste or smell?: No Other Medical History Have you received the Flu Vaccine for this season: Yes Have you received the Pneumonia Vaccine: Yes <Jeannette Pérez MD - Last Filed: 09/19/24 16:03> ROS Obtained: Yes unobtainable due to mental status Physical Exam <Jeannette Pérez MD - Last Filed: 09/19/24 16:03> General General appearance: alert, in no apparent distress and other Head Head exam: atraumatic Eye Eye exam: Present PERRL, EOMI and discharge; Absent scleral icterus ENT ENT exam: Present mucous membranes dry Neck Neck exam: Present other (C-collar in place) Chest Chest inspection: Present normal inspection; Absent tenderness Respiratory Respiratory exam: Present normal lung sounds bilaterally; Absent respiratory distress Cardiovascular Cardiovascular exam: Present normal rhythm and tachycardia Abdominal Exam Abdominal exam: Present soft and tenderness; Absent distention exam: Present deferred Extremities Exam Extremities exam: Present full ROM; Absent tenderness or edema Neurological Exam Neurological exam: Absent alert Expanded Neurological Exam Patient oriented to: Absent person, place or time Speech: Absent fluid speech Coma scale eye opening: To pain Coma scale motor response: Withdraws to pain Coma scale verbal response: Incomprehensible Coma scale total: 8 Psychiatric Psychiatric exam: Present agitated Skin Skin exam: Present warm and dry <Sherley Penn DO - Last Filed: 09/19/24 23:41> Expanded Neurological Exam Coma scale total: 8 Medical Decision Making <Jeannette Pérez MD - Last Filed: 09/19/24 16:03> Medical Records Medical records reviewed: Yes I reviewed the patient's medical records. Screening: Per USPSTF and CDC recommendations, given the prevalence of disease in our region, it is our hospital?s policy to screen for HIV and viral Hepatitis for all patients aged 18 and over and those with ongoing risk factors. Arnaldo Inquiry Pt receiving controlled substance: No Arnaldo was queried for this patient: No Vital Signs: 09/19/24 13:31 09/19/24 14:00 09/19/24 15:00 Temperature 97.7 F Temperature Source Oral Pulse Rate 108 H 110 H Pulse Rate [Left] 114 H Respiratory Rate 20 21 19 Blood Pressure 166/72 H 156/75 H Blood Pressure [Right Arm] 115/84 Blood Pressure Mean [Right Arm] 94 Blood Pressure Source [Right Arm] Automatic Cuff Blood Pressure Position [Right Arm] Sitting 02 Sat by Pulse Oximetry 95 98 96 Oxygen Delivery Method Room Air Room Air Room Air 09/19/24 15:30 09/19/24 16:00 09/19/24 16:31 Temperature Temperature Source Pulse Rate 113 H 110 H 101 H Pulse Rate [Left] Respiratory Rate 20 18 20 Blood Pressure 143/51 H 129/84 154/84 H Blood Pressure [Right Arm] Blood Pressure Mean [Right Arm] Blood Pressure Source [Right Arm] Blood Pressure Position [Right Arm] 02 Sat by Pulse Oximetry 95 97 90 L Oxygen Delivery Method Room Air Room Air Room Air 09/19/24 17:30 09/19/24 17:37 Temperature 97.7 F Temperature Source Pulse Rate 52 L 52 L Pulse Rate [Left] Respiratory Rate 22 22 Blood Pressure 143/90 H 143/90 H Blood Pressure [Right Arm] Blood Pressure Mean [Right Arm] Blood Pressure Source [Right Arm] Blood Pressure Position [Right Arm] 02 Sat by Pulse Oximetry 96 Oxygen Delivery Method Room Air Lab Data Lab results reviewed: Yes I reviewed the patient's lab results. Lab Results 09/19/24 13:27: WBC 15.8 H, RBC 4.87, Hgb 15.3, Hct 45.6, MCV 93.6, MCH 31.4 H, MCHC 33.6, RDW 13.2, Plt Count 353, MPV 11.7 H, Neut % (Auto) 84.7 H, Lymph % (Auto) 6.5 L, Sanders % (Auto) 7.7, Eos % (Auto) 0.1, Baso % (Auto) 0.6, Neut # (Auto) 13.4 H, Lymph # (Auto) 1.0, Sanders # (Auto) 1.2 H, Eos # (Auto) 0.0, Baso # (Auto) 0.1, Total Counted 100, Neutrophils % (Manual) 83 H, Band Neutrophils % 1.0, Lymphocytes % (Manual) 9 L, Monocytes % (Manual) 7, Platelet Estimate Normal, RBC Morphology Normal, Sodium 150 H, Potassium 4.8, Chloride 115 H, C arbon Dioxide 16 L, Anion Gap 23.8 H, BUN 45 H, Creatinine 2.40 H, Estimated Creat Clear 25, Estimated GFR 27 L, Est GFR ( Amer) 32 L, Glucose 126 H, Calcium 11.1 H, Total Bilirubin 1.9 H, AST 57, ALT 38, Alkaline Phosphatase 88, Total Creatine Kinase 199 H, Total Protein 9.1 H, Albumin 5.1 H, Globulin 4.0 H, Albumin/Globulin Ratio 1.3, Plasma/Serum Alcohol < 10 09/19/24 13:30: VBG pH 7.36, VBG pCO2 29.3 L, VBG pO2 37.8, VBG HCO3 16.1 L, VBG Total CO2 17.0 L, VBG O2 Saturation 68.9, VBG Base Excess -9.4 L, VBG Lactic Acid 2.9 H 09/19/24 13:32: Troponin I 0.03 09/19/24 13:27 09/19/24 13:27 Orders (Tests/Meds): ED MEDICATIONS Generic Name Dose Route Start Last Admin Trade Name Freq PRN Reason Stop Dose Admin Lorazepam 1 mg 09/19/24 17:04 09/19/24 22:33 Lorazepam 2mg/Ml Vial IV 10/19/24 17:03 1 mg Q2HP PRN Administration Agitation Morphine Sulfate 2 mg 09/19/24 17:04 Morphine 2mg/Ml Syringe IV 10/19/24 17:03 Q2HP PRN Severe Pain (7-10) Ondansetron HCl 4 mg 09/19/24 17:04 Ondansetron 4mg/2ml Vial IV 10/19/24 17:03 Q8HP PRN Nausea And Vomiting Sodium Chloride 10 ml 09/19/24 17:04 Sodium Chloride 0.9% 10ml Vial IV 10/19/24 17:03 NEEDED PRN to Dilute Lorazepam inj Discontinued Medications Generic Name Dose Route Start Last Admin Trade Name Sadie PRN Reason Stop Dose Admin Lactated Ringer's 500 mls @ 999 mls/hr 09/19/24 14:18 09/19/24 14:28 Lactated Ringer's 1000 Ml Bag IV 09/19/24 14:48 999 mls/hr .Q31M ONE Administration Iopamidol 75 ml 09/19/24 14:37 09/19/24 14:38 Iopamidol-370 (76%);100ml Bottle IV 09/19/24 14:38 75 ml ONCE ONE Administration Miscellaneous 1 each 09/19/24 16:15 09/19/24 18:04 Vancomycin Consult Request NOTAPPLIC 10/19/24 16:14 Not Given CONSULT PHARMACY [facility] Sodium Chloride 10 ml 09/19/24 14:37 09/19/24 14:38 Sodium Chloride 0.9% 10ml Syr (Rad Only) IV 09/19/24 14:38 10 ml ONCE ONE Administration ORDERS Category Date Time Status CT abdomen pelvis w con Stat Cat Scan 09/19/24 14:[address] cervical spine wo con Stat Cat Scan 09/19/24 13:[address] chest w con Stat Cat Scan 09/19/24 14:[address] head/brain wo con Stat Cat Scan 09/19/24 13:28 Completed CXR --portable [XR chest portable] Stat Exams 09/19/24 13:28 Completed CBC w/Auto Diff [Complete Blood Count Auto Diff] Stat Lab 09/19/24 13:27 Completed CK [Creatine Kinase] Stat Lab 09/19/24 13:27 Completed CMP [Comprehensive Metabolic Panel] Stat Lab 09/19/24 13:27 Completed Ethyl Alcohol Stat Lab 09/19/24 13:27 Completed Trop I [Troponin I] Stat Lab 09/19/24 13:32 Completed Troponin I Q3H Lab 09/19/24 20:30 Ordered Troponin I Q3H Lab 09/19/24 21:09 Completed Urinalysis and Microscopic Stat Lab 09/19/24 14:25 Ordered Blood Culture Stat Micro 09/19/24 15:56 Received VBG [Venous Blood Gas] Stat RT 09/19/24 13:30 Completed Medical Decision Narrative: In summary, this is a 74-year-old male presenting with altered mental status. Differential diagnosis includes but is not limited to, encephalopathy, CVA, electrolyte abnormality, intoxication, rhabdomyolysis, sepsis, acute cystitis, aspiration pneumonia, among others. Patient has a history significant for hypertension, alcohol abuse, coronary artery disease s/p stents, active prostate cancer. Patient was taken out of the hospital without attending rehab. Patient had a prolonged stent on the floor after falling out of bed last night. Patient is nonverbal on exam and intermittently agitated. Broad evaluation will be performed consisting of CBC, CMP, VBG, CK, alcohol level, blood cultures, urinalysis, respiratory swab, CT head, CT C-spine, CT chest/abdomen/pelvis. Patient's labs significant for leukocytosis of 15.8, no anemia or thrombocytopenia. Lactic acid 2.9, given 1 L LR. Patient hyponatremic to 150 with increased creatinine of 2.4. CK 199. Blood alcohol level <10. Urinalysis pending. At time of signout, CT scans pending final evaluation. On my initial review, no evidence of acute injury, CVA, C-spine fracture, pneumothorax or intra-abdominal pathology related to patient's encephalopathy. See oncoming providers note for final evaluation. <Sherley Penn, DO - Last Filed: 09/19/24 23:41> Vital Signs: 09/19/24 13:31 09/19/24 14:00 09/19/24 15:00 Temperature 97.7 F Temperature Source Oral Pulse Rate 108 H 110 H Pulse Rate [Left] 114 H Respiratory Rate 20 21 19 Blood Pressure 166/72 H 156/75 H Blood Pressure [Right Arm] 115/84 Blood Pressure Mean [Right Arm] 94 Blood Pressure Source [Right Arm] Automatic Cuff Blood Pressure Position [Right Arm] Sitting 02 Sat by Pulse Oximetry 95 98 96 Oxygen Delivery Method Room Air Room Air Room Air 09/19/24 15:30 09/19/24 16:00 09/19/24 16:31 Temperature Temperature Source Pulse Rate 113 H 110 H 101 H Pulse Rate [Left] Respiratory Rate 20 18 20 Blood Pressure 143/51 H 129/84 154/84 H Blood Pressure [Right Arm] Blood Pressure Mean [Right Arm] Blood Pressure Source [Right Arm] Blood Pressure Position [Right Arm] 02 Sat by Pulse Oximetry 95 97 90 L Oxygen Delivery Method Room Air Room Air Room Air 09/19/24 17:30 09/19/24 17:37 Temperature 97.7 F Temperature Source Pulse Rate 52 L 52 L Pulse Rate [Left] Respiratory Rate 22 22 Blood Pressure 143/90 H 143/90 H Blood Pressure [Right Arm] Blood Pressure Mean [Right Arm] Blood Pressure Source [Right Arm] Blood Pressure Position [Right Arm] 02 Sat by Pulse Oximetry 96 Oxygen Delivery Method Room Air Lab Data Lab Results 09/19/24 13:27: WBC 15.8 H, RBC 4.87, Hgb 15.3, Hct 45.6, MCV 93.6, MCH 31.4 H, MCHC 33.6, RDW 13.2, Plt Count 353, MPV 11.7 H, Neut % (Auto) 84.7 H, Lymph % (Auto) 6.5 L, Sanders % (Auto) 7.7, Eos % (Auto) 0.1, Baso % (Auto) 0.6, Neut # (Auto) 13.4 H, Lymph # (Auto) 1.0, Sanders # (Auto) 1.2 H, Eos # (Auto) 0.0, Baso # (Auto) 0.1, Total Counted 100, Neutrophils % (Manual) 83 H, Band Neutrophils % 1.0, Lymphocytes % (Manual) 9 L, Monocytes % (Manual) 7, Platelet Estimate Normal, RBC Morphology Normal, Sodium 150 H, Potassium 4.8, Chloride 115 H, C arbon Dioxide 16 L, Anion Gap 23.8 H, BUN 45 H, Creatinine 2.40 H, Estimated Creat Clear 25, Estimated GFR 27 L, Est GFR ( Amer) 32 L, Glucose 126 H, Calcium 11.1 H, Total Bilirubin 1.9 H, AST 57, ALT 38, Alkaline Phosphatase 88, Total Creatine Kinase 199 H, Total Protein 9.1 H, Albumin 5.1 H, Globulin 4.0 H, Albumin/Globulin Ratio 1.3, Plasma/Serum Alcohol < 10 09/19/24 13:30: VBG pH 7.36, VBG pCO2 29.3 L, VBG pO2 37.8, VBG HCO3 16.1 L, VBG Total CO2 17.0 L, VBG O2 Saturation 68.9, VBG Base Excess -9.4 L, VBG Lactic Acid 2.9 H 09/19/24 13:32: Troponin I 0.03 Orders (Tests/Meds): ED MEDICATIONS Generic Name Dose Route Start Last Admin Trade Name Freq PRN Reason Stop Dose Admin Lorazepam 1 mg 09/19/24 17:04 09/19/24 22:33 Lorazepam 2mg/Ml Vial IV 10/19/24 17:03 1 mg Q2HP PRN Administration Agitation Morphine Sulfate 2 mg 09/19/24 17:04 Morphine 2mg/Ml Syringe IV 10/19/24 17:03 Q2HP PRN Severe Pain (7-10) Ondansetron HCl 4 mg 09/19/24 17:04 Ondansetron 4mg/2ml Vial IV 10/19/24 17:03 Q8HP PRN Nausea And Vomiting Sodium Chloride 10 ml 09/19/24 17:04 Sodium Chloride 0.9% 10ml Vial IV 10/19/24 17:03 NEEDED PRN to Dilute Lorazepam inj Discontinued Medications Generic Name Dose Route Start Last Admin Trade Name Freq PRN Reason Stop Dose Admin Lactated Ringer's 500 mls @ 999 mls/hr 09/19/24 14:18 09/19/24 14:28 Lactated Ringer's 1000 Ml Bag IV 09/19/24 14:48 999 mls/hr .Q31M ONE Administration Iopamidol 75 ml 09/19/24 14:37 09/19/24 14:38 Iopamidol-370 (76%);100ml Bottle IV 09/19/24 14:38 75 ml ONCE ONE Administration Miscellaneous 1 each 09/19/24 16:15 09/19/24 18:04 Vancomycin Consult Request NOTAPPLIC 10/19/24 16:14 Not Given CONSULT PHARMACY [facility] Sodium Chloride 10 ml 09/19/24 14:37 09/19/24 14:38 Sodium Chloride 0.9% 10ml Syr (Rad Only) IV 09/19/24 14:38 10 ml ONCE ONE Administration ORDERS Category Date Time Status CT abdomen pelvis w con Stat Cat Scan 09/19/24 14:[address] cervical spine wo con Stat Cat Scan 09/19/24 13:[address] chest w con Stat Cat Scan 09/19/24 14:[address] head/brain wo con Stat Cat Scan 09/19/24 13:28 Completed CXR --portable [XR chest portable] Stat Exams 09/19/24 13:28 Completed CBC w/Auto Diff [Complete Blood Count Auto Diff] Stat Lab 09/19/24 13:27 Completed CK [Creatine Kinase] Stat Lab 09/19/24 13:27 Completed CMP [Comprehensive Metabolic Panel] Stat Lab 09/19/24 13:27 Completed Ethyl Alcohol Stat Lab 09/19/24 13:27 Completed Trop I [Troponin I] Stat Lab 09/19/24 13:32 Completed Troponin I Q3H Lab 09/19/24 20:30 Ordered Troponin I Q3H Lab 09/19/24 21:09 Completed Urinalysis and Microscopic Stat Lab 09/19/24 14:25 Ordered Blood Culture Stat Micro 09/19/24 15:56 Received VBG [Venous Blood Gas] Stat RT 09/19/24 13:30 Completed Medical Decision Narrative: In summary, this is a 74-year-old male presenting with altered mental status. Differential diagnosis includes but is not limited to, encephalopathy, CVA, electrolyte abnormality, intoxication, rhabdomyolysis, sepsis, acute cystitis, aspiration pneumonia, among others. Patient has a history significant for hypertension, alcohol abuse, coronary artery disease s/p stents, active prostate cancer. Patient was taken out of the hospital without attending rehab. Patient had a prolonged stent on the floor after falling out of bed last night. Patient is nonverbal on exam and intermittently agitated. Broad evaluation will be performed consisting of CBC, CMP, VBG, CK, alcohol level, blood cultures, urinalysis, respiratory swab, CT head, CT C-spine, CT chest/abdomen/pelvis. Patient's labs significant for leukocytosis of 15.8, no anemia or thrombocytopenia. Lactic acid 2.9, given 1 L LR. Patient hyponatremic to 150 with increased creatinine of 2.4. CK 199. Blood alcohol level <10. Urinalysis pending. At time of signout, CT scans pending final evaluation. On my initial review, no evidence of acute injury, CVA, C-spine fracture, pneumothorax or intra-abdominal pathology related to patient's encephalopathy. See oncoming providers note for final evaluation. DO Fili: I assumed care of the patient at 1500. He is persistently encephalopathic, not able to form coherent sentences and reaching up in the air for things that are not there. Vitals are stable. CBC demonstrates leukocytosis. Chemistry demonstrates multiple metabolic derangements, hyponatremia, high anion gap, elevated BUN, elevated creatinine, elevated chloride. I feel this is likely related to the patient's very poor oral intake. I independently interpreted CT scans prior to radiology read and noted pneumonia and fecal impaction. He also has chronic small vessel changes on his brain. Please see radiology read for final interpretation. Patient was given IV fluids, and I ordered broad-spectrum IV antibiotics. I had ordered CIWA protocol, CIWA score was 9 so I had ordered IV benzodiazepines. I had interactive discussion with patient's physicians Dr. Stack and Dr. Winn regarding potential admission who advised that they felt he would benefit from transfer to higher level of care for neurology and psychiatry with his persistent encephalopathy. I had discussion with the patient's regarding this. We spoke for quite some time about goals of care and need for transfer for higher level of care if she wishes for him to potentially get better. I advised that we do not have neurology or psychiatry to evaluate him here, so he would need transfer to higher level of care such as [facility], , [facility], [place]. His called his son and spoke with him on the phone before coming to the decision that she would like to pursue comfort care measures and keep the patient here on hospice. She stated that mentioned comfort care at [facility] prior to her leaving with him, and she thinks that since he did get better over the last 5 weeks, he is unlikely to get better and she just wants him to be kept comfortable close to home. I then discussed the case again with Dr. Stack and Dr. Winn who advised we will keep him here on comfort care measures for hospice evaluation. Family updated, patient admitted, comfort medications ordered including Ativan, morphine, Zofran. Critical Care <Jeannette Pérez MD - Last Filed: 09/19/24 16:03> Critical Care Time Critical Care Time: No <Sherley Penn DO - Last Filed: 09/19/24 23:41> Critical Care Time Critical Care Time: Yes Attestation: On 09/19/24, the high probability of a clinically significant, sudden or life threatening deterioration of the following system(s) required my full and direct attention, intervention and personal management. The time I documented below is in addition to time spent performing reported procedures but includes the following listed in this critical care notation. Total Time Total Critical Care Time: 30
--- NOTE | 2024-09-19 14:25 | PC.NURSE ---
pt to CT via stretcher
[2024-09-19] MEDS: LACTATED RINGERS 1000ML 500 ML 999 ML IV (14:28)
[2024-09-19] MEDS: IOPAMIDOL-370 (76%);100ML BOTTLE 75 ML IV (14:38)
[2024-09-19] MEDS: SODIUM CHLORIDE 0.9% 10ML SYR (RAD ONLY) 10 ML IV (14:38)
--- NOTE | 2024-09-19 14:41 | PC.NURSE ---
clinical manager home care at bedside
--- NOTE | 2024-09-19 14:42 | HMH.ITSTN ---
GFR 27. CALLED THE ER AND THE TECH SPOKE WITH DR JERONIMO) AND SHE SAID SHE WOULD SIGN TO PROCEED WITH THE CONTRAST
--- NOTE | 2024-09-19 14:43 | PC.NURSE ---
Fifi RN from care management is bedside speaking with the pt and his family.
[2024-09-19 14:48] LABS: Lymphocytes % 9 % (10-50); Monocytes % 7 % (2-9); Neutrophils % 83 % (42-76); Platelet Estimate Normal; RBC Morphology Normal; Total Cells Counted 100
[2024-09-19 14:51] LABS: Troponin I 0.03 ng/ml (0.00-0.034)
--- NOTE | 2024-09-19 16:10 | PC.NURSE ---
place male johnson on pt
--- NOTE | 2024-09-19 16:11 | PC.NURSE ---
JANEY HAIRSTON on phone with dr quiroga for dr ruiz
--- NOTE | 2024-09-19 16:20 | PC.NURSE ---
faxed over a medical release of information to [facility] F: [phone]
[2024-09-19 17:54] LABS: Reflex Lactic Add Lactic Reflex
--- NOTE | 2024-09-19 18:16 | PC.NURSE ---
spoke with MD abeba eckert,a due to pt being comfort care/
--- NOTE | 2024-09-19 19:05 | PC.NURSE ---
PER ER STAFF AND NOTES, PATIENT WAS ADMITTED FOR COMFORT CARE. UPON ADMISSION AND DISCUSSION WITH FAMILY, STATES SHE WANTS EVERYTHING DONE EXCEPT INTUBATION. CALLED DR LAFLEUR (FIELD ACCOUNT DIRECTOR FOR DR GROVE) AND UPDATED WITH THIS INFORMATION. NNO AT THIS TIME. ALSO, PATIENT AND UNSURE OF HOME MEDICATIONS. COOLER SERVICER WILL COMPARE WITH EXTERNAL MEDICATION LIST.
[2024-09-19 19:11] LABS: Lactic Acid Follow Up (RFLX 1) 1.6 mmol/L (0.7-2.1)
--- NOTE | 2024-09-19 19:22 | PC.WOUNDNOTE ---
Redness to bottom
[2024-09-19 22:09] LABS: Troponin I 0.02 ng/ml (0.00-0.034)
[2024-09-19] MEDS: LORazepam 2MG/ML VIAL 1 MG IV (22:33)
[2024-09-20 00:30] LABS: Troponin I 0.02 ng/ml (0.00-0.034)
[2024-09-20] MEDS: MORPHINE 2MG/ML SYRINGE 2 MG IV ×3 (02:33→22:02)
[2024-09-20 04:00] VITALS: BP 142/79; PULSE 102; RESP 18; TEMP 36.3; O2SAT 96; BMI 19.2
--- NOTE | 2024-09-20 05:55 | PC.NURSE ---
patient has been restless and combative this shift, given morphine and ativan per mar for agitation and pain, patient is resistive to care at times, patient was attempting to pull out IV, mittens were applied, patient has been trying to get out of bed, bed alarm is on and functioning, placed patient in 1-1 observation, seizure precautions in place, call button in reach
[2024-09-20 08:00] VITALS: BP 142/78; PULSE 110; RESP 19; O2SAT 95
--- NOTE | 2024-09-20 08:22 | HMH.PHAINT1 ---
Pharmacy Intervention Comments: MEDICATION RECONCILIATION COMPLETED ON PATIENT USING EXTERNAL FILL HISTORY FROM PHARMACY. -DEV ORTEZ, JOHND
--- NOTE | 2024-09-20 08:28 | P.HP_ITS ---
History of Present Illness *Admission Date: 09/19/24 *Reason for visit:: confusion, fall *History of present illness: Fredis Romero is a 74 y/o male presenting for altered mental status. History obtained from patient's at bedside as patient is unable to provide history himself due to altered mental status. states patient was discharged from [facility] after a 5-week hospitalization consisting of alcohol withdrawals, pneumonia, encephalopathy. She was concerned that no progress is being made and she decided to take him home. states patient briefly coded while receiving a lumbar puncture during the hospitalization and was placed on a ventilator. She states prior to taking him home there was discussion of a PEG tube because patient was now refusing to eat and was pocketing food in his mouth. When she brought him home last night, she had 2 friends come over and help her get him into bed. She states he slid out of bed and laid on the floor last night and slept there. She provided him a pillow and a blanket. She was unable to get him off the floor herself. She ultimately decided to call an ambulance earlier this afternoon to have him evaluated. In summary, this is a 74-year-old male presenting with altered mental status. Differential diagnosis includes but is not limited to, encephalopathy, CVA, electrolyte abnormality, intoxication, rhabdomyolysis, sepsis, acute cystitis, aspiration pneumonia, among others. Patient has a history significant for hypertension, alcohol abuse, coronary artery disease s/p stents, active prostate cancer. Patient was taken out of the hospital without attending rehab. Patient had a prolonged stent on the floor after falling out of bed last night. Patient is nonverbal on exam and intermittently agitated. Broad evaluation will be performed consisting of CBC, CMP, VBG, CK, alcohol level, blood cultures, urinalysis, respiratory swab, CT head, CT C-spine, CT chest/abdomen/pelvis. Patient's labs significant for leukocytosis of 15.8, no anemia or thrombocytopenia. Lactic acid 2.9, given 1 L LR. Patient hyponatremic to 150 with increased creatinine of 2.4. CK 199. Blood alcohol level <10. Urinalysis pending. At time of signout, CT scans pending final evaluation. On my initial review, no evidence of acute injury, CVA, C-spine fracture, pneumothorax or intra-abdominal pathology related to patient's encephalopathy. See oncoming providers note for final evaluation. DO Fili: I assumed care of the patient at 1500. He is persistently encephalopathic, not able to form coherent sentences and reaching up in the air for things that are not there. Vitals are stable. CBC demonstrates leukocytosis. Chemistry demonstrates multiple metabolic derangements, hyponatremia, high anion gap, elevated BUN, elevated creatinine, elevated chloride. I feel this is likely related to the patient's very poor oral intake. I independently interpreted CT scans prior to radiology read and noted pneumonia and fecal impaction. He also has chronic small vessel changes on his brain. Please see radiology read for final interpretation. Patient was given IV fluids, and I ordered broad-spectrum IV antibiotics. I had ordered CIWA protocol, CIWA score was 9 so I had ordered IV benzodiazepines. I had interacti ve discussion with patient's physicians Dr. Stack and Dr. Winn regarding potential admission who advised that they felt he would benefit from transfer to higher level of care for neurology and psychiatry with his persistent encephalopathy. I had discussion with the patient's regarding this. We spoke for quite some time about goals of care and need for transfer for higher level of care if she wishes for him to potentially get better. I advised that we do not have neurology or psychiatry to evaluate him here, so he would need transfer to higher level of care such as [facility], , [facility]. His called his son and spoke with him on the phone before coming to the decision that she would like to pursue comfort care measures and keep the patient here on hospice. She stated that mentioned comfort care at [facility] prior to her leaving with him, and she thinks that since he did get better over the last 5 weeks, he is unlikely to get better and she just wants him to be kept comfortable close to home. I then discussed the case again with Dr. Stack and Dr. Winn who advised we will keep him here on comfort care measures for hospice evaluation. Family updated, patient admitted, comfort medications ordered including Ativan, morphine, Zofran. (above as per ER physician) According to patient's nurse, the family would like fluids and would like for him to be a DNR, but not a DNI. There is no family with him this am and he cannot form sentences. We are trying to obtain records from his hospital stay at [place]. [facility] Disclaimer: The information contained in this section may have been updated after the patient was seen, as this information can be updated by other users. Medical History Malignant hypertension Acute renal failure Dyspnea CAD (coronary artery disease) Agatston coronary artery calcium score greater than 400 Elevated coronary artery calcium score Ex-smoker Abnormal electrocardiogram Dizziness Syncope, near Surgical History History of coronary artery stent placement Social History Smoking Status: Unknown if ever smoked second hand exposure: No alcohol intake: never substance use type: denies use current occupational status: retired Travel in the last 8 weeks: Inside the [place] household members: spouse housing: house current occupation: DIRECTOR OF [employer] current occupational exposures/hazards: No caffeine: Yes Have you lived/traveled outside US in past 30 days?: No Contact w/someone who lives/traveled outside US past 30 days?: No Exposure to someone with infectious disease in past 14 days?: No Do you have a fever (greater than 100.4 F or 38 C)?: No Have you tested positive for COVID-19: No Exposed to someone with COVID-19 in past 14 days?: No Do you have a sore throat?: No Do you have a cough?: No Do you have any weakness?: No Do you have any diarrhea?: No Are you experiencing any unusual bleeding?: No Do you have any muscle aches/pain?: No Do you have any abdominal pain?: No Are you experiencing loss of taste or smell?: No Other Medical History Have you received the Flu Vaccine for this season: Yes Have you received the Pneumonia Vaccine: Yes Review of Systems Review of Systems Review of systems:: unable to obtain Meds Home Medications and Allergies Home Medications ?Medication ?Instructions ?Recorded ?Confirmed ?Type duloxetine 60 mg capsule,delayed 60 mg PO DAILY 09/20/24 09/20/24 History release metoprolol succinate 100 mg 100 mg PO DAILY 09/20/24 09/20/24 History tablet,extended release 24 hr New Prescriptions to Start Prescriptions: Allergies Allergy/AdvReac Type Severity Reaction Status Date / Time ibuprofen Allergy Unknown Verified 09/19/24 14:45 allergy reaction Exam Data for Last 24 hours Vital signs and Labs for Last 24 Hours: Temp Pulse Resp BP Pulse Ox O2 Del Method 97.3 F L 110 H 19 142/78 H 95 Room Air 09/20/24 04:00 09/20/24 08:00 09/20/24 08:00 09/20/24 08:00 09/20/24 08:00 09/20/24 08:00 Laboratory Results - last 24 hr 09/19/24 13:27: WBC 15.8 H, RBC 4.87, Hgb 15.3, Hct 45.6, MCV 93.6, MCH 31.4 H, MCHC 33.6, RDW 13.2, Plt Count 353, MPV 11.7 H, Neut % (Auto) 84.7 H, Lymph % (Auto) 6.5 L, Linn % (Auto) 7.7, Eos % (Auto) 0.1, Baso % (Auto) 0.6, Neut # (Auto) 13.4 H, Lymph # (Auto) 1.0, Linn # (Auto) 1.2 H, Eos # (Auto) 0.0, Baso # (Auto) 0.1, Total Counted 100, Neutrophils % (Manual) 83 H, Band Neutrophils % 1.0, Lymphocytes % (Manual) 9 L, Monocytes % (Manual) 7, Platelet Estimate Normal, RBC Morphology Normal, Sodium 150 H, Potassium 4.8, Chloride 115 H, Carbon Dioxide 16 L, Anion Gap 23.8 H, BUN 45 H, Creatinine 2.40 H, Estimated Creat Clear 25, Estimated GFR 27 L, Est GFR ( Amer) 32 L, Glucose 126 H, Calcium 11.1 H, Total Bilirubin 1.9 H, AST 57, ALT 38, Alkaline Phosphatase 88, Total Creatine Kinase 199 H, Total Protein 9.1 H, Albumin 5.1 H, Globulin 4.0 H, Albumin/Globulin Ratio 1.3, Plasma/Serum Alcohol < 10 09/19/24 13:30: VBG pH 7.36, VBG pCO2 29.3 L, VBG pO2 37.8, VBG HCO3 16.1 L, VBG Total CO2 17.0 L, VBG O2 Saturation 68.9, VBG Base Excess -9.4 L, VBG Lactic Acid 2.9 H 09/19/24 13:32: Troponin I 0.03 09/19/24 18:54: Lactate 1.6 09/19/24 21:09: Troponin I 0.02 09/20/24 00:00: Troponin I 0.02 I & O for Last 24 hours: Intake & Output 09/17/24 09/18/24 09/19/24 09/20/24 11:59 11:59 11:59 11:59 Output Total 0 / 0 Balance 0 / 0 Weight 141 lb 12.8 oz Constitutional Constitutional: no acute distress (not able to form sentences) *Routine HEENT Exam Head: Present normocephalic and atraumatic Eye: Present EOMI and PERRL ENT: Present mucous membranes dry *Routine Neck Exam Neck: Present supple and full ROM *Routine Respiratory Exam Respiratory: Present CTA bilaterally *Routine Cardiovascular Exam Cardiovascular: Present RRR *Routine Abdominal Exam Abdominal: Present soft, normoactive bowel sounds and tenderness (LLQ) *Routine Rectal Exam Rectal:: deferred *Routine Genitalia Exam Genitalia:: deferred *Routine Extremities Exam Extremities: Absent cyanosis, clubbing or edema *Routine Skin Exam Skin: Present intact; Absent erythema *Routine Neurological Exam Neurological: Present motor deficit and altered mental status; Absent normal speech or tremors Routine Psychiatric Exam Psychiatric: Present unable to assess H&P: Result Impressions Cervical Spine CT - No acute osseous abnormality of the cervical spine. Mild degenerative disc disease, most severe at the C6-7 level. CXR - No acute process on this portable exam. Head CT - No acute intracranial abnormality. Atrophy and changes suggesting chronic small vessel ischemia, stable since the prior CT of 08/15/2024. Abd/Pelvic CT - Large amount of rectal stool, consistent with rectal fecal impaction. Distended gallbladder, without gallstones visualized. Sclerotic lesion of the L1 vertebral body, sclerotic metastases not excluded. Chest CT - Consolidation in the lung bases has improved since August 15. However, there are now bilateral nodular and reticulonodular opacities in the lower lung mosley, that may represent new bilateral pneumonia or the evolution of previously seen pneumonia. Assessment and Plan *Assessment and plan (1) Altered mental status: Status: Acute Category: Medical Code(s): R41.82 - Altered mental status, unspecified (2) Encephalopathy: Status: Acute Category: Medical Code(s): G93.40 - Encephalopathy, unspecified (3) Acute kidney injury: Status: Acute Category: Medical Code(s): N17.9 - Acute kidney failure, unspecified (4) Hypercalcemia: Status: Acute Category: Medical Code(s): E83.52 - Hypercalcemia (5) Dehydration: Status: Acute Category: Medical Code(s): E86.0 - Dehydration (6) Adult failure to thrive: Status: Acute Category: Medical Code(s): R62.7 - Adult failure to thrive (7) Elevated bilirubin: Status: Acute Category: Medical Code(s): R17 - Unspecified jaundice (8) Elevated creatine kinase: Status: Acute Category: Medical Code(s): R74.8 - Abnormal levels of other serum enzymes (9) Acute hypernatremia: Status: Acute Category: Medical Code(s): E87.0 - Hyperosmolality and hypernatremia (10) History of coronary artery stent placement: Status: Chronic Category: Surgical Code(s): Z95.5 - Presence of coronary angioplasty implant and graft (11) GERD (gastroesophageal reflux disease): Status: Acute Qualifiers: Esophagitis presence: esophagitis presence not specified Qualified Code(s): K21.9 - Gastro-esophageal reflux disease without esophagitis Category: Medical Code(s): K21.9 - Gastro-esophageal reflux disease without esophagitis (12) CAD (coronary artery disease): Status: Chronic Qualifiers: Associated angina: without angina Coronary Disease-Associated Artery/Lesion type: [place] artery [place] vs. transplanted heart: [place] heart Qualified Code(s): I25.10 - Atherosclerotic heart disease of [place] coronary artery without angina pectoris Category: Medical Code(s): I25.10 - Atherosclerotic heart disease of [place] coronary artery without angina pectoris (13) Agatston coronary artery calcium score greater than 400: Status: Acute Category: Medical Code(s): R93.1 - Abnormal findings on diagnostic imaging of heart and coronary circulation (14) Ex-smoker: Status: Acute Category: Social Hx Code(s): Z87.891 - Personal history of nicotine dependence (15) Carotid artery stenosis: Status: Chronic Qualifiers: Laterality: bilateral Qualified Code(s): I65.23 - Occlusion and stenosis of bilateral carotid arteries Category: Medical Code(s): I65.29 - Occlusion and stenosis of unspecified carotid artery (16) HTN (hypertension): Status: Chronic Qualifiers: Hypertension type: essential hypertension Qualified Code(s): I10 - Es sential (primary) hypertension Category: Medical Code(s): I10 - Essential (primary) hypertension (17) HLD (hyperlipidemia): Status: Chronic Qualifiers: Hyperlipidemia type: mixed hyperlipidemia Qualified Code(s): E78.2 - Mixed hyperlipidemia Category: Medical Code(s): E78.5 - Hyperlipidemia, unspecified (18) Alcoholism: Status: Acute Category: Medical Code(s): F10.20 - Alcohol dependence, uncomplicated Plan Awaiting records from [facility] Patient was admitted for comfort care measures. Will have to discuss further direction of care with the patient's family. Dr. Stack entry - Saw patient. He is alert but not able to speak, seemed to understand commands. Patient was admitted through the ER last night for comfort measures only and a Hospice consult. He had been admitted at [facility] in [place] for 5 weeks and his signed him out AMA 2 days ago. No records are available for review at this point. Spoke to patient's by phone this morning as she indicated to a nurse that she did not want to make patient DNR last night. Discussed plan of care at length. She wants to discuss further with patient's son.
[2024-09-20 10:19] VITALS: BMI 19.2
--- NOTE | 2024-09-20 10:26 | CARE MANAGER ---
Addendum entered by [facility] 09/25/24 09:21: I have updated Leidy moura/ [facility] that patient will continue inpatient Hospice Care at this time. Addendum entered by [facility] 09/24/24 15:41: Patient continues Hospice inpatient admission. Addendum entered by [facility] 09/23/24 10:21: Per Radha moura/ [facility] patient has been admitted Hospice inpatient as of 9:20AM today. I did speak w/ at length regarding re-evaluation in 48-72 hours regarding placement if needed. [facility] is unable to accept patient due to not having a contact w/ Hospice at this time. [facility] did deny patient but will continue to follow regarding agitation. Miya moura/ [facility] is willing to accept this patient under private pay if placement is needed after re evaluation. I will continue to follow up. Addendum entered by [facility] 09/20/24 15:10: [facility] has denied patient and [facility] stated that she will follow up Monday morning due to behaviors today. [facility] is also reviewing patient information at this time. Addendum entered by [facility] 09/20/24 13:40: Patient information also faxed to [facility] in [place] and [facility] in [place]. Addendum entered by [facility] 09/20/24 13:32: Leidy w/ Hospice and myself at bedside to speak w/ patient, and son. is agreeable to Hospice services w/ placement. I did explain to the importance of trying multiple facilities due to placement possibly being difficult to AMS. is agreeable to placement w/o facility preference. Patient information has been faxed to the following facilities: [facility], [facility], [facility], [facility], [facility], [facility] and [facility]. I will continue to follow up w/ Hospice, patient/family, MD and facilities. The following facilities do NOT have beds available: [facility], [facility], [facility] (no answer/VM left) Original Note: Daniela, patient's , called back and stated she spoke with the patient's son and they would like to have Hospice to see patient. Dr. Stack ordered Hospice consult and information was sent to [facility].
--- NOTE | 2024-09-20 10:32 | CARE MANAGER ---
Current Medications Lorazepam (Lorazepam 2mg/Ml Vial) 1 mg IV Q2HP PRN PRN Reason: Agitation Stop: 10/19/24 17:03 Last Admin: 09/19/24 22:33 Dose: 1 mg Morphine Sulfate (Morphine 2mg/Ml Syringe) 2 mg IV Q2HP PRN PRN Reason: Severe Pain (7-10) Stop: 10/19/24 17:03 Last Admin: 09/20/24 02:33 Dose: 2 mg Ondansetron HCl (Ondansetron 4mg/2ml Vial) 4 mg IV Q8HP PRN PRN Reason: Nausea And Vomiting Stop: 10/19/24 17:03 Sodium Chloride (Sodium Chloride 0.9% 10ml Vial) 10 ml IV NEEDED PRN PRN Reason: to Dilute Lorazepam inj Stop: 10/19/24 17:03
--- NOTE | 2024-09-20 12:12 | PC.NURSE ---
PATIENT'S LEFT AC IV WAS LEAKING. THIS RN ATTEMPTED NEW IV, HOWEVER WAS UNSUCCESSFUL. Lionel REGALADO RN TO BEDSIDE FOR ULTRASOUND GUIDED IV. 20 TO RIGHT UPPER ARM. PT TOLERATED WELL. SON IS AT BEDSIDE AT THIS TIME. BED ALARM OFF AND DOOR CLOSED FOR PRIVACY. WILL CHECK IN FREQUENTLY.
[2024-09-20] MEDS: SODIUM CHLORIDE 0.9% 10ML VIAL 10 ML IV (15:17)
[2024-09-20] MEDS: LORazepam 2MG/ML VIAL 1 MG IV ×2 (15:17→19:53)
[2024-09-20 20:04] VITALS: BP 130/57; PULSE 115; RESP 17; TEMP 36.8; O2SAT 95
--- NOTE | 2024-09-20 21:16 | PC.NURSE ---
oral care preformed with sponge toothette
[2024-09-21] MEDS: LORazepam 2MG/ML VIAL 1 MG IV ×7 (00:41→23:10)
[2024-09-21 04:00] VITALS: BMI 18.3
[2024-09-21] MEDS: MORPHINE 2MG/ML SYRINGE 2 MG IV ×3 (05:57→20:50)
--- NOTE | 2024-09-21 06:31 | PC.NURSE ---
Pt has been restless this shift. He has tried getting out of bed and has required 1-1 observation. He has received morphine and ativan for pain and anxiety. Previous Iv went bad and new one was placed in the right forearm. Mitts have been if place to prevent Iv from being pulled out. Bed alarm in place.
--- NOTE | 2024-09-21 07:27 | EXP.ACUTE.PN ---
Subjective *Date: 09/21/24 *Time: 07:27 Interval history: I had a long discussion with patient's , son and step daughter yesterday evening. All questions answered about plan of care. They agree with comfort measures and Hospice consultation. Hospice saw patient and accepted him pending discharge to SNF. No new issues reported overnight. Patient continues to be encephalopathic. Medical Exam Vital signs and Labs for Last 24 Hours: Vital Signs Temp Pulse Resp BP Pulse Ox O2 Del Method 09/21/24 06:45 Room Air 09/21/24 05:00 Room Air 09/21/24 03:00 Room Air 09/21/24 01:00 Room Air 09/20/24 23:00 Room Air 09/20/24 21:00 Room Air 09/20/24 20:04 98.2 F 115 H 17 130/57 L 95 Room Air 09/20/24 18:37 Room Air 09/20/24 17:00 Room Air 09/20/24 15:00 Room Air 09/20/24 13:00 Room Air 09/20/24 11:00 Room Air 09/20/24 09:00 Room Air 09/20/24 08:00 110 H 19 142/78 H 95 Room Air 09/20/24 07:59 Room Air Intake and Output 09/20/24 09/20/24 09/21/24 15:59 23:59 07:59 Output Total 0 / 0 0 / 0 Balance 0 / 0 0 / 0 Output: Output, Urine Amount 0 / 0 0 / 0 Other: Number of Unmeasured Voids 1 1 Number of Urine Attends/Diapers 1 Weight 141 lb 12.468 oz 135 lb 4.8 oz Patient Weight 09/21/24 23:59 Weight 135 lb 4.8 oz I & O for Labs for Last 24 Hours: Intake & Output 09/18/24 09/19/24 09/20/24 09/21/24 23:59 23:59 23:59 23:59 Output Total 0 / 0 Balance 0 / 0 Weight 144 lb 6.4 oz 141 lb 12.468 oz 135 lb 4.8 oz Microbiology Reports for the Last 24 Hours: Microbiology 09/19/24 15:56 Blood Blood Culture - Preliminary 09/19/24 13:27 Blood Blood Culture - Preliminary NO GROWTH AFTER 24 HOURS Comment:: Encephalopathic, no meaning communication, unable to follow commands Assessment and Plan *Assessment and plan (1) Altered mental status: Status: Acute Category: Medical Code(s): R41.82 - Altered mental status, unspecified (2) Encephalopathy: Status: Acute Category: Medical Code(s): G93.40 - Encephalopathy, unspecified (3) Acute kidney injury: Status: Acute Category: Medical Code(s): N17.9 - Acute kidney failure, unspecified (4) Hypercalcemia: Status: Acute Category: Medical Code(s): E83.52 - Hypercalcemia (5) Dehydration: Status: Acute Category: Medical Code(s): E86.0 - Dehydration (6) Adult failure to thrive: Status: Acute Category: Medical Code(s): R62.7 - Adult failure to thrive (7) Elevated bilirubin: Status: Acute Category: Medical Code(s): R17 - Unspecified jaundice (8) Elevated creatine kinase: Status: Acute Category: Medical Code(s): R74.8 - Abnormal levels of other serum enzymes (9) Acute hypernatremia: Status: Acute Category: Medical Code(s): E87.0 - Hyperosmolality and hypernatremia (10) History of coronary artery stent placement: Status: Chronic Category: Surgical Code(s): Z95.5 - Presence of coronary angioplasty implant and graft (11) GERD (gastroesophageal reflux disease): Status: Acute Qualifiers: Esophagitis presence: esophagitis presence not specified Qualified Code(s): K21.9 - Gastro-esophageal reflux disease without esophagitis Category: Medical Code(s): K21.9 - Gastro-esophageal reflux disease without esophagitis (12) CAD (coronary artery disease): Status: Chronic Qualifiers: Coronary Disease-Associated Artery/Lesion type: [place] artery [place] vs. transplanted heart: [place] heart Associated angina: without angina Qualified Code(s): I25.10 - Atherosclerotic heart disease of [place] coronary artery without angina pectoris Category: Medical Code(s): I25.10 - Atherosclerotic heart disease of [place] coronary artery without angina pectoris (13) Agatston coronary artery calcium score greater than 400: Status: Acute Category: Medical Code(s): R93.1 - Abnormal findings on diagnostic imaging of heart and coronary circulation (14) Ex-smoker: Status: Acute Category: Social Hx Code(s): Z87.891 - Personal history of nicotine dependence (15) Carotid artery stenosis: Status: Chronic Qualifiers: Laterality: bilateral Qualified Code(s): I65.23 - Occlusion and stenosis of bilateral carotid arteries Category: Medical Code(s): I65.29 - Occlusion and stenosis of unspecified carotid artery (16) HTN (hypertension): Status: Chronic Qualifiers: Hypertension type: essential hypertension Qualified Code(s): I10 - Essential (primary) hypertension Category: Medical Code(s): I10 - Essential (primary) hypertension (17) HLD (hyperlipidemia): Status: Chronic Qualifiers: Hyperlipidemia type: mixed hyperlipidemia Qualified Code(s): E78.2 - Mixed hyperlipidemia Category: Medical Code(s): E78.5 - Hyperlipidemia, unspecified (18) Alcoholism: Status: Acute Category: Medical Code(s): F10.20 - Alcohol dependence, uncomplicated Plan Continue with comfort measures only.
[2024-09-21 08:38] VITALS: BP 131/78; PULSE 109; RESP 20; TEMP 36.3; O2SAT 96
[2024-09-21] MEDS: SODIUM CHLORIDE 0.9% 10ML VIAL 10 ML IV ×2 (09:12→13:06)
--- NOTE | 2024-09-21 16:44 | PC.NURSE ---
patient has been agitated and restless this shift. treated with ativan and morphine per MAR. family has been at bedside for most of the shift. family assisted with oral care. mits removed at 1545 due to family stating the mits may be making him more agitated. PW in place. seizure pads in place. patient remains on room air. bed alarm on and functioning. family currently remains at bedside.
--- NOTE | 2024-09-21 18:30 | PC.NURSE ---
IV started leaking. new IV placed in the left foot.
[2024-09-21 19:57] VITALS: BP 136/94; PULSE 118
[2024-09-22] MEDS: MORPHINE 2MG/ML SYRINGE 2 MG IV ×3 (01:57→15:07)
[2024-09-22 04:00] VITALS: BMI 40.4
[2024-09-22] MEDS: LORazepam 2MG/ML VIAL 1 MG IV ×4 (04:35→23:07)
[2024-09-22 08:00] VITALS: BP 121/62; PULSE 112; RESP 20; TEMP 37.1; O2SAT 90
--- NOTE | 2024-09-22 09:00 | EXP.ACUTE.PN ---
Subjective *Date: 09/22/24 *Time: 09:00 Interval history: No new issues over night. Patient was agitated at times yesterday, slept some last night, still moans out at times, no meaningful communication. Medical Exam Vital signs and Labs for Last 24 Hours: Vital Signs Temp Pulse Resp BP Pulse Ox O2 Del Method 09/22/24 08:00 98.7 F 112 H 20 121/62 90 L Room Air 09/22/24 06:28 Room Air 09/22/24 05:00 Room Air 09/22/24 03:00 Room Air 09/22/24 01:00 Room Air 09/21/24 23:00 Room Air 09/21/24 21:00 Room Air 09/21/24 20:00 Room Air 09/21/24 19:57 118 H 136/94 H 09/21/24 18:31 Room Air 09/21/24 17:00 Room Air 09/21/24 15:00 Room Air 09/21/24 13:00 Room Air 09/21/24 11:00 Room Air Intake and Output 09/21/24 09/22/24 09/22/24 23:59 07:59 15:59 Output Total 200 / 200 Balance -200 / -200 Output: Output, Urine Amount 200 / 200 Other: Number of Unmeasured Voids 0 0 Weight 298 lb 1.039 oz Patient Weight 09/22/24 23:59 Weight 298 lb 1.039 oz I & O for Labs for Last 24 Hours: Intake & Output 09/19/24 09/20/24 09/21/24 09/22/24 23:59 23:59 23:59 23:59 Output Total 0 / 0 200 / 200 Balance 0 / 0 -200 / -200 Weight 144 lb 6.4 oz 141 lb 12.468 oz 135 lb 4.8 oz 298 lb 1.039 oz Microbiology Reports for the Last 24 Hours: Microbiology 09/19/24 13:27 Blood Blood Culture - Preliminary NO GROWTH AFTER 48 HOURS 09/19/24 15:56 Blood Blood Culture - Preliminary Comment:: Sleeping Cardiac: Present Reg Rate and Rhythm Assessment and Plan *Assessment and plan (1) Altered mental status: Status: Acute Category: Medical Code(s): R41.82 - Altered mental status, unspecified (2) Encephalopathy: Status: Acute Category: Medical Code(s): G93.40 - Encephalopathy, unspecified (3) Acute kidney injury: Status: Acute Category: Medical Code(s): N17.9 - Acute kidney failure, unspecified (4) Hypercalcemia: Status: Acute Category: Medical Code(s): E83.52 - Hypercalcemia (5) Dehydration: Status: Acute Category: Medical Code(s): E86.0 - Dehydration (6) Adult failure to thrive: Status: Acute Category: Medical Code(s): R62.7 - Adult failure to thrive (7) Elevated bilirubin: Status: Acute Category: Medical Code(s): R17 - Unspecified jaundice (8) Elevated creatine kinase: Status: Acute Category: Medical Code(s): R74.8 - Abnormal levels of other serum enzymes (9) Acute hypernatremia: Status: Acute Category: Medical Code(s): E87.0 - Hyperosmolality and hypernatremia (10) History of coronary artery stent placement: Status: Chronic Category: Surgical Code(s): Z95.5 - Presence of coronary angioplasty implant and graft (11) GERD (gastroesophageal reflux disease): Status: Acute Qualifiers: Esophagitis presence: esophagitis presence not specified Qualified Code(s): K21.9 - Gastro-esophageal reflux disease without esophagitis Category: Medical Code(s): K21.9 - Gastro-esophageal reflux disease without esophagitis (12) CAD (coronary artery disease): Status: Chronic Qualifiers: Coronary Disease-Associated Artery/Lesion type: [place] artery [place] vs. transplanted heart: [place] heart Associated angina: without angina Qualified Code(s): I25.10 - Atherosclerotic heart disease of [place] coronary artery without angina pectoris Category: Medical Code(s): I25.10 - Atherosclerotic heart disease of [place] coronary artery without angina pectoris (13) [place] coronary artery calcium score greater than 400: Status: Acute Category: Medical Code(s): R93.1 - Abnormal findings on diagnostic imaging of heart and coronary circulation (14) Ex-smoker: Status: Acute Category: Social Hx Code(s): Z87.891 - Personal history of nicotine dependence (15) Carotid artery stenosis: Status: Chronic Qualifiers: Laterality: bilateral Qualified Code(s): I65.23 - Occlusion and stenosis of bilateral carotid arteries Category: Medical Code(s): I65.29 - Occlusion and stenosis of unspecified carotid artery (16) HTN (hypertension): Status: Chronic Qualifiers: Hypertension type: essential hypertension Qualified Code(s): I10 - Essential (primary) hypertension Category: Medical Code(s): I10 - Essential (primary) hypertension (17) HLD (hyperlipidemia): Status: Chronic Qualifiers: Hyperlipidemia type: mixed hyperlipidemia Qualified Code(s): E78.2 - Mixed hyperlipidemia Category: Medical Code(s): E78.5 - Hyperlipidemia, unspecified (18) Alcoholism: Status: Acute Category: Medical Code(s): F10.20 - Alcohol dependence, uncomplicated Plan Continue with comfort measures only.
--- NOTE | 2024-09-22 16:20 | PC.NURSE ---
patient remains restless and unable to answer questions with periods of agitation. comfort care measures in place, treated with ativan and morphine per MAR. remains on RA. will not keep a brief or purewick in place. incontinent of urine. bed alarm and seizure pads in place. bed in low position. no needs at this time.
[2024-09-22 20:00] VITALS: BP 119/73; PULSE 91; RESP 18; O2SAT 86
[2024-09-22] MEDS: SODIUM CHLORIDE 0.9% 10ML VIAL 10 ML IV (23:07)
[2024-09-23] MEDS: MORPHINE 2MG/ML SYRINGE 2 MG IV ×5 (00:18→18:37)
--- NOTE | 2024-09-23 02:21 | PC.NURSE ---
pt is resting in bed. restless t/o the shift. unable to respond or follow commands. requires repositioning frequently. oral care provided. medicated per mar for restlessness and agitation. incontinent of urine. lung sounds clear. abdomen soft with hypoactive bowel sounds. pt continues to moan out frequently. will continue to monitor.
[2024-09-23 03:16] VITALS: BMI 18.3
--- NOTE | 2024-09-23 07:49 | P.PN_ITS ---
Subjective *Date: 09/23/24 *Time: 08:56 Interval history: Patient continues to be restless and varying degrees. He has almost constant movement of arms and legs and and has placed legs over bed rail at times. He moans sometimes louder than others. Nursing continues to give Ativan and mo rphine as needed while evaluating respiratory status. Patient does not respond to questions except for when asked if he could talk this a.m. he said yes. That was it. Medical Exam Vital signs and Labs for Last 24 Hours: Vital Signs Temp Pulse Resp BP Pulse Ox O2 Del Method 09/23/24 06:43 Room Air 09/23/24 04:46 Room Air 09/23/24 02:40 Room Air 09/23/24 00:54 Room Air 09/22/24 22:32 Room Air 09/22/24 20:00 91 H 18 119/73 86 L Room Air 09/22/24 20:00 Room Air 09/22/24 18:29 Room Air 09/22/24 17:00 Room Air 09/22/24 15:00 Room Air 09/22/24 12:51 Room Air 09/22/24 11:00 Room Air 09/22/24 09:00 Room Air 09/22/24 08:00 Room Air 09/22/24 08:00 98.7 F 112 H 20 121/62 90 L Room Air Intake and Output 09/22/24 09/23/24 09/23/24 19:59 03:59 11:59 Other: Number of Unmeasured Voids 1 Weight 135 lb 6.4 oz Patient Weight 09/23/24 11:59 Weight 135 lb 6.4 oz I & O for Labs for Last 24 Hours: Intake & Output 09/20/24 09/21/24 09/22/24 09/23/24 11:59 11:59 11:59 11:59 Output Total 0 / 0 0 / 0 200 / 200 Balance 0 / 0 0 / 0 -200 / -200 Weight 141 lb 12.468 oz 135 lb 4.8 oz 298 lb 1.039 oz 135 lb 6.4 oz Constitutional: Present no acute distress, cachectic and chronically ill marie tita Comment:: Restless. Patient lying on his left side with constant short movement of arms and legs Respiratory: Present CTA bilaterally (Anteriorly and posteriorly) Cardiac: Present Reg Rate and Rhythm (100/min) Extremities: Present full ROM; Absent edema Neuro: Present awake and moves all extremities (Nonpurposeful: Nonverbal); Absent alert or oriented x 3 Assessment and Plan *Assessment and plan (1) Altered mental status: Status: Acute Category: Medical Code(s): R41.82 - Altered mental status, unspecified (2) Encephalopathy: Status: Acute Category: Medical Code(s): G93.40 - Encephalopathy, unspecified (3) Acute kidney injury: Status: Acute Category: Medical Code(s): N17.9 - Acute kidney failure, unspecified (4) Hypercalcemia: Status: Acute Category: Medical Code(s): E83.52 - Hypercalcemia (5) Dehydration: Status: Acute Category: Medical Code(s): E86.0 - Dehydration (6) Adult failure to thrive: Status: Acute Category: Medical Code(s): R62.7 - Adult failure to thrive (7) Elevated bilirubin: Status: Acute Category: Medical Code(s): R17 - Unspecified jaundice (8) Elevated creatine kinase: Status: Acute Category: Medical Code(s): R74.8 - Abnormal levels of other serum enzymes (9) Acute hypernatremia: Status: Acute Category: Medical Code(s): E87.0 - Hyperosmolality and hypernatremia (10) History of coronary artery stent placement: Status: Chronic Category: Surgical Code(s): Z95.5 - Presence of coronary angioplasty implant and graft (11) GERD (gastroesophageal reflux disease): Status: Acute Qualifiers: Esophagitis presence: esophagitis presence not specified Qualified Code(s): K21.9 - Gastro-esophageal reflux disease without esophagitis Category: Medical Code(s): K21.9 - Gastro-esophageal reflux disease without esophagitis (12) CAD (coronary artery disease): Status: Chronic Qualifiers: Associated angina: without angina Coronary Disease-Associated Artery/Lesion type: [place] artery [place] vs. transplanted heart: [place] heart Qualified Code(s): I25.10 - Atherosclerotic heart disease of [place] coronary artery without angina pectoris Category: Medical Code(s): I25.10 - Atherosclerotic heart disease of [place] coronary artery without angina pectoris (13) [place] coronary artery calcium score greater than 400: Status: Acute Category: Medical Code(s): R93.1 - Abnormal findings on diagnostic imaging of heart and coronary circulation (14) Ex-smoker: Status: Acute Category: Social Hx Code(s): Z87.891 - Personal history of nicotine dependence (15) Carotid artery stenosis: Status: Chronic Qualifiers: Laterality: bilateral Qualified Code(s): I65.23 - Occlusion and stenosis of bilateral carotid arteries Category: Medical Code(s): I65.29 - Occlusion and stenosis of unspecified carotid artery (16) HTN (hypertension): Status: Chronic Qualifiers: Hypertension type: essential hypertension Qualified Code(s): I10 - Essential (primary) hypertension Category: Medical Code(s): I10 - Essential (primary) hypertension (17) HLD (hyperlipidemia): Status: Chronic Qualifiers: Hyperlipidemia type: mixed hyperlipidemia Qualified Code(s): E78.2 - Mixed hyperlipidemia Category: Medical Code(s): E78.5 - Hyperlipidemia, unspecified (18) Alcoholism: Status: Acute Category: Medical Code(s): F10.20 - Alcohol dependence, uncomplicated Plan Continue with comfort measures only. Care management continues to work on placement. Hospice has been consulted. Dr. Stack entry - Saw patient, agree with above note. Spoke to his about changing to DNR.
--- NOTE | 2024-09-23 08:55 | PC.NURSE ---
Addendum entered by Elba Costa 09/23/24 09:09: Hospice nurse Radha at bedside. Original Note: Jennifer Keith and Chelsea at bedside with
--- NOTE | 2024-09-23 09:09 | PC.NURSE ---
DNR form completed with patient's
[2024-09-23] MEDS: LORazepam 2MG/ML VIAL 1 MG IV ×2 (09:40→11:38)
--- NOTE | 2024-09-23 12:25 | PC.NURSE ---
TECH NOTE; ATTEMPTED TO TAKE PATIENT VITAL SIGNS, PATIENT WOULD NOT PHYSICALLY KEEP BLOOD PRESSURE CUFF AND PULSE OX ON AT THIS TIME Lionel HUITRON, SRNA
--- NOTE | 2024-09-23 16:03 | PC.NURSE ---
Patient confused. On room air. Morphine and ativan for comfort with improvement of restlessness. Turned prn but patient continues to roll to left side to sleep. Oral care prn. No urine or bowel movement this shift. Patient to continue inpatient hospice care
[2024-09-24] MEDS: MORPHINE 2MG/ML SYRINGE 2 MG IV ×5 (00:59→16:42)
[2024-09-24] MEDS: LORazepam 2MG/ML VIAL 1 MG IV ×3 (01:04→12:00)
[2024-09-24 04:00] VITALS: BMI 18.3
--- NOTE | 2024-09-24 05:16 | PC.NURSE ---
Pt is in comfort care. No acute events to report. Plan of care ongoing.
--- NOTE | 2024-09-24 07:56 | P.PN_ITS ---
Subjective *Date: 09/24/24 *Time: 08:53 Interval history: Patient is nonverbal. He does open his eyes when pulled up in the bed. Nursing states he has been quite comfortable and relaxed with regular morphine and Ativan. He has had no urinary output. He is now DNR. Medical Exam Vital signs and Labs for Last 24 Hours: Vital Signs O2 Del Method 09/24/24 06:33 Room Air 09/24/24 04:43 Room Air 09/24/24 03:00 Room Air 09/24/24 01:00 Room Air 09/23/24 23:00 Room Air 09/23/24 21:00 Room Air 09/23/24 20:00 Room Air 09/23/24 18:52 Room Air 09/23/24 16:50 Room Air 09/23/24 15:00 Room Air 09/23/24 13:00 Room Air 09/23/24 10:53 Room Air 09/23/24 09:00 Room Air 09/23/24 08:00 Room Air Intake and Output 09/23/24 09/24/24 09/24/24 19:59 03:59 11:59 Intake Total 0 / 0 0 / 0 Balance 0 / 0 0 / 0 Intake: Intake, Oral Amount 0 / 0 0 / 0 Other: Number of Unmeasured Voids 0 Weight 135 lb 6.386 oz Patient Weight 09/24/24 11:59 Weight 135 lb 6.386 oz I & O for Labs for Last 24 Hours: Intake & Output 09/21/24 09/22/24 09/23/24 09/24/24 11:59 11:59 11:59 11:59 Intake Total 0 / 0 Output Total 0 / 0 200 / 200 Balance 0 / 0 -200 / -200 0 / 0 Weight 135 lb 4.8 oz 298 lb 1.039 oz 135 lb 6.4 oz 135 lb 6.386 oz Microbiology Reports for the Last 24 Hours: Microbiology 09/19/24 13:27 Blood Blood Culture - Preliminary NO GROWTH AFTER 4 DAYS Constitutional: Present no acute distress Comment:: Lying on his back and appears comfortable and relaxed. Opens his eyes when pulled up in the bed. Nonverbal. Mouth breathing Respiratory: Present CTA bilaterally Cardiac: Present Reg Rate and Rhythm (Heart rate 90/min) GI: Present soft and normal bowel sounds; Absent tenderness or guarding Extremities: Absent edema Comment:: Moves all extremities Neuro: Present Other (Nonverbal), awake (Awakens with opening of eyes with stimuli) and moves all extremities Assessment and Plan *Assessment and plan (1) Altered mental status: Status: Acute Category: Medical Code(s): R41.82 - Altered mental status, unspecified (2) Encephalopathy: Status: Acute Category: Medical Code(s): G93.40 - Encephalopathy, unspecified (3) Acute kidney injury: Status: Acute Category: Medical Code(s): N17.9 - Acute kidney failure, unspecified (4) Hypercalcemia: Status: Acute Category: Medical Code(s): E83.52 - Hypercalcemia (5) Dehydration: Status: Acute Category: Medical Code(s): E86.0 - Dehydration (6) Adult failure to thrive: Status: Acute Category: Medical Code(s): R62.7 - Adult failure to thrive (7) Elevated bilirubin: Status: Acute Category: Medical Code(s): R17 - Unspecified jaundice (8) Elevated creatine kinase: Status: Acute Category: Medical Code(s): R74.8 - Abnormal levels of other serum enzymes (9) Acute hypernatremia: Status: Acute Category: Medical Code(s): E87.0 - Hyperosmolality and hypernatremia (10) History of coronary artery stent placement: Status: Chronic Category: Surgical Code(s): Z95.5 - Presence of coronary angioplasty implant and graft (11) GERD (gastroesophageal reflux disease): Status: Acute Qualifiers: Esophagitis presence: esophagitis presence not specified Qualified Code(s): K21.9 - Gastro-esophageal reflux disease without esophagitis Category: Medical Code(s): K21.9 - Gastro-esophageal reflux disease without esophagitis (12) CAD (coronary artery disease): Status: Chronic Qualifiers: Associated angina: without angina Coronary Disease-Associated Artery/Lesion type: [place] artery [place] vs. transplanted heart: [place] heart Qualified Code(s): I25.10 - Atherosclerotic heart disease of [place] coronary artery without angina pectoris Category: Medical Code(s): I25.10 - Atherosclerotic heart disease of [place] coronary artery without angina pectoris (13) [place] coronary artery calcium score greater than 400: Status: Acute Category: Medical Code(s): R93.1 - Abnormal findings on diagnostic imaging of heart and coronary circulation (14) Ex-smoker: Status: Acute Category: Social Hx Code(s): Z87.891 - Personal history of nicotine dependence (15) Carotid artery stenosis: Status: Chronic Qualifiers: Laterality: bilateral Qualified Code(s): I65.23 - Occlusion and stenosis of bilateral carotid arteries Category: Medical Code(s): I65.29 - Occlusion and stenosis of unspecified carotid artery (16) HTN (hypertension): Status: Chronic Qualifiers: Hypertension type: essential hypertension Qualified Code(s): I10 - Essential (primary) hypertension Category: Medical Code(s): I10 - Essential (primary) hypertension (17) HLD (hyperlipidemia): Status: Chronic Qualifiers: Hyperlipidemia type: mixed hyperlipidemia Qualified Code(s): E78.2 - Mixed hyperlipidemia Category: Medical Code(s): E78.5 - Hyperlipidemia, unspecified (18) Alcoholism: Status: Acute Category: Medical Code(s): F10.20 - Alcohol dependence, uncomplicated (19) Severe protein-calorie malnutrition: Status: Acute Category: Medical Code(s): E43 - Unspecified severe protein-calorie malnutrition Plan Patient is now a DNR and has been accepted by hospice. Comfort measures continue. Dr. Stack entry - Saw patient, agree with above note.
--- NOTE | 2024-09-24 13:06 | PC.NURSE ---
TECH NOTE; PATIENT FAMILY MEMBER REFUSED VITAL SIGNS AT THIS TIME AND STATES SHE WOULD JUST LIKE FOR PATIENT TO REST Lionel HUITRON, SRNA
--- NOTE | 2024-09-24 16:09 | PC.NURSE ---
Comfort care measures continued for patient. Patient is able to rest comfortably with prn morphine and ativan. One bowel movement and void. Turned prn with patient moving back to left side position. Oral care prn. Family at bedside throughout shift
[2024-09-24 20:00] VITALS: BP 138/77; PULSE 101; RESP 15; TEMP 36.2; O2SAT 94
[2024-09-25] MEDS: MORPHINE 2MG/ML SYRINGE 2 MG IV ×5 (01:22→20:33)
[2024-09-25 04:00] VITALS: BMI 18.3
--- NOTE | 2024-09-25 04:11 | PC.NURSE ---
Addendum entered by Fay Gleason RN 09/25/24 05:41: 2nd dose of morphine given for sign of discomfort. Original Note: Comfort care provided for pt. He responds by opening his eyes to turning and repositioning at times, other times, no real response noted. No intake, oral care provided. He has voided X 1 this shift, no BM. Pt medicated with Morphine IV X 1 dose for signs of discomfort which was effective. visited early in the shift, updated her on pt status. Confirmed that she would like to be notified as becomes near, if able to determine
--- NOTE | 2024-09-25 07:58 | EXP.ACUTE.PN ---
Subjective *Date: 09/25/24 *Time: 08:52 Interval history: Patient is resting comfortably this am. Nonverbal. Sleeps through exam. Medical Exam Vital signs and Labs for Last 24 Hours: Vital Signs Temp Pulse Resp BP Pulse Ox O2 Del Method 09/25/24 06:58 Room Air 09/25/24 05:00 Room Air 09/25/24 03:00 Room Air 09/25/24 01:00 Room Air 09/24/24 23:00 Room Air 09/24/24 21:00 Room Air 09/24/24 20:00 Room Air 09/24/24 20:00 97.1 F L 101 H 15 138/77 94 L Room Air 09/24/24 18:43 Room Air 09/24/24 16:51 Room Air 09/24/24 14:43 Room Air 09/24/24 13:00 Room Air 09/24/24 10:45 Room Air 09/24/24 09:00 Room Air 09/24/24 08:00 Room Air Intake and Output 09/24/24 09/25/24 09/25/24 19:59 03:59 11:59 Intake Total 0 / 0 0 / 0 Output Total 0 / 0 Balance 0 / 0 0 / 0 Intake: Intake, Oral Amount 0 / 0 0 / 0 Output: Output, Urine Amount 0 / 0 Other: Number of Unmeasured Voids 1 Weight 135 lb 11.2 oz Patient Weight 09/25/24 11:59 Weight 135 lb 11.2 oz I & O for Labs for Last 24 Hours: Intake & Output 09/22/24 09/23/24 09/24/24 09/25/24 11:59 11:59 11:59 11:59 Intake Total 0 / 0 0 / 0 Output Total 200 / 200 0 / 0 0 / 0 Balance -200 / -200 0 / 0 0 / 0 Weight 298 lb 1.039 oz 135 lb 6.4 oz 135 lb 6.386 oz 135 lb 11.2 oz Microbiology Reports for the Last 24 Hours: Microbiology 09/19/24 13:27 Blood Blood Culture - Final NO GROWTH AFTER 5 DAYS 09/19/24 15:56 Blood Blood Culture - Final Staphylococcus epidermidis Constitutional: Present no acute distress Comment:: Lying on his back and appears comfortable and relaxed. Mouth breathing ENT: Present mucous membranes dry Respiratory: Present CTA bilaterally Cardiac: Present Reg Rate and Rhythm (Heart rate 90/min) GI: Present soft and normal bowel sounds; Absent tenderness or guarding Extremities: Absent edema Comment:: Moves all extremities Neuro: Present Other (Nonverbal); Absent awake Assessment and Plan *Assessment and plan (1) Altered mental status: Status: Acute Category: Medical Code(s): R41.82 - Altered mental status, unspecified (2) Encephalopathy: Status: Acute Category: Medical Code(s): G93.40 - Encephalopathy, unspecified (3) Acute kidney injury: Status: Acute Category: Medical Code(s): N17.9 - Acute kidney failure, unspecified (4) Hypercalcemia: Status: Acute Category: Medical Code(s): E83.52 - Hypercalcemia (5) Dehydration: Status: Acute Category: Medical Code(s): E86.0 - Dehydration (6) Adult failure to thrive: Status: Acute Category: Medical Code(s): R62.7 - Adult failure to thrive (7) Elevated bilirubin: Status: Acute Category: Medical Code(s): R17 - Unspecified jaundice (8) Elevated creatine kinase: Status: Acute Category: Medical Code(s): R74.8 - Abnormal levels of other serum enzymes (9) Acute hypernatremia: Status: Acute Category: Medical Code(s): E87.0 - Hyperosmolality and hypernatremia (10) History of coronary artery stent placement: Status: Chronic Category: Surgical Code(s): Z95.5 - Presence of coronary angioplasty implant and graft (11) GERD (gastroesophageal reflux disease): Status: Acute Qualifiers: Esophagitis presence: esophagitis presence not specified Qualified Code(s): K21.9 - Gastro-esophageal reflux disease without esophagitis Category: Medical Code(s): K21.9 - Gastro-esophageal reflux disease without esophagitis (12) CAD (coronary artery disease): Status: Chronic Qualifiers: Associated angina: without angina Coronary Disease-Associated Artery/Lesion type: [place] artery [place] vs. transplanted heart: [place] heart Qualified Code(s): I25.10 - Atherosclerotic heart disease of [place] coronary artery without angina pectoris Category: Medical Code(s): I25.10 - Atherosclerotic heart disease of [place] coronary artery without angina pectoris (13) [place] coronary artery calcium score greater than 400: Status: Acute Category: Medical Code(s): R93.1 - Abnormal findings on diagnostic imaging of heart and coronary circulation (14) Ex-smoker: Status: Acute Category: Social Hx Code(s): Z87.891 - Personal history of nicotine dependence (15) Carotid artery stenosis: Status: Chronic Qualifiers: Laterality: bilateral Qualified Code(s): I65.23 - Occlusion and stenosis of bilateral carotid arteries Category: Medical Code(s): I65.29 - Occlusion and stenosis of unspecified carotid artery (16) HTN (hypertension): Status: Chronic Qualifiers: Hypertension type: essential hypertension Qualified Code(s): I10 - Essential (primary) hypertension Category: Medical Code(s): I10 - Essential (primary) hypertension (17) HLD (hyperlipidemia): Status: Chronic Qualifiers: Hyperlipidemia type: mixed hyperlipidemia Qualified Code(s): E78.2 - Mixed hyperlipidemia Category: Medical Code(s): E78.5 - Hyperlipidemia, unspecified (18) Alcoholism: Status: Acute Category: Medical Code(s): F10.20 - Alcohol dependence, uncomplicated (19) Severe protein-calorie malnutrition: Status: Acute Category: Medical Code(s): E43 - Unspecified severe protein-calorie malnutrition Plan Continue Hospice and comfort measures. Dr. Stack entry - Saw patient, agree with above note.
[2024-09-25 08:00] VITALS: BP 120/62; PULSE 43; RESP 16; TEMP 35.6; O2SAT 90
[2024-09-25 19:51] VITALS: BP 99/55; PULSE 99; RESP 14; TEMP 36.5; O2SAT 100
[2024-09-26] MEDS: MORPHINE 2MG/ML SYRINGE 2 MG IV ×4 (00:53→21:59)
[2024-09-26 04:00] VITALS: BMI 18.3
--- NOTE | 2024-09-26 04:57 | PC.NURSE ---
Continuing comfort care. Pt appears comfortable and has been repositioned throughout shift. Meds have been provided per MAR for comfort. Family did visit early in shift.
--- NOTE | 2024-09-26 07:55 | EXP.ACUTE.PN ---
Subjective *Date: 09/26/24 *Time: 09:01 Interval history: Patient is resting comfortably. He sleeps through exam. Medical Exam Vital signs and Labs for Last 24 Hours: Vital Signs Temp Pulse Resp BP Pulse Ox O2 Del Method 09/26/24 06:46 Room Air 09/26/24 05:00 Room Air 09/26/24 03:00 Room Air 09/26/24 01:00 Room Air 09/25/24 23:00 Room Air 09/25/24 21:00 Room Air 09/25/24 20:00 Room Air 09/25/24 19:51 97.7 F 99 H 14 99/55 L 100 09/25/24 18:28 Room Air 09/25/24 17:00 Room Air 09/25/24 15:00 Room Air 09/25/24 13:00 Room Air 09/25/24 10:51 Room Air 09/25/24 09:00 Room Air 09/25/24 08:00 Room Air 09/25/24 08:00 96.1 F L 43 L 16 120/62 90 L Room Air Intake and Output 09/25/24 09/26/24 09/26/24 19:59 03:59 11:59 Other: Weight 135 lb 11.183 oz Patient Weight 09/26/24 11:59 Weight 135 lb 11.183 oz I & O for Labs for Last 24 Hours: Intake & Output 09/23/24 09/24/24 09/25/24 09/26/24 11:59 11:59 11:59 11:59 Intake Total 0 / 0 0 / 0 Output Total 0 / 0 0 / 0 Balance 0 / 0 0 / 0 Weight 135 lb 6.4 oz 135 lb 6.386 oz 135 lb 11.2 oz 135 lb 11.183 oz Constitutional: Present no acute distress Comment:: Lying on his back and appears comfortable and relaxed. Mouth breathing ENT: Present mucous membranes dry Respiratory: Present CTA bilaterally Cardiac: Present Reg Rate and Rhythm (Heart rate 90/min) GI: Present soft and normal bowel sounds; Absent tenderness or guarding Extremities: Absent edema Comment:: Moves all extremities Neuro: Absent awake Assessment and Plan *Assessment and plan (1) Altered mental status: Status: Acute Category: Medical Code(s): R41.82 - Altered mental status, unspecified (2) Encephalopathy: Status: Acute Category: Medical Code(s): G93.40 - Encephalopathy, unspecified (3) Acute kidney injury: Status: Acute Category: Medical Code(s): N17.9 - Acute kidney failure, unspecified (4) Hypercalcemia: Status: Acute Category: Medical Code(s): E83.52 - Hypercalcemia (5) Dehydration: Status: Acute Category: Medical Code(s): E86.0 - Dehydration (6) Adult failure to thrive: Status: Acute Category: Medical Code(s): R62.7 - Adult failure to thrive (7) Elevated bilirubin: Status: Acute Category: Medical Code(s): R17 - Unspecified jaundice (8) Elevated creatine kinase: Status: Acute Category: Medical Code(s): R74.8 - Abnormal levels of other serum enzymes (9) Acute hypernatremia: Status: Acute Category: Medical Code(s): E87.0 - Hyperosmolality and hypernatremia (10) History of coronary artery stent placement: Status: Chronic Category: Surgical Code(s): Z95.5 - Presence of coronary angioplasty implant and graft (11) GERD (gastroesophageal reflux disease): Status: Acute Qualifiers: Esophagitis presence: esophagitis presence not specified Qualified Code(s): K21.9 - Gastro-esophageal reflux disease without esophagitis Category: Medical Code(s): K21.9 - Gastro-esophageal reflux disease without esophagitis (12) CAD (coronary artery disease): Status: Chronic Qualifiers: Associated angina: without angina Coronary Disease-Associated Artery/Lesion type: [place] artery [place] vs. transplanted heart: [place] heart Qualified Code(s): I25.10 - Atherosclerotic heart disease of [place] coronary artery without angina pectoris Category: Medical Code(s): I25.10 - Atherosclerotic heart disease of [place] coronary artery without angina pectoris (13) [place] coronary artery calcium score greater than 400: Status: Acute Category: Medical Code(s): R93.1 - Abnormal findings on diagnostic imaging of heart and coronary circulation (14) Ex-smoker: Status: Acute Category: Social Hx Code(s): Z87.891 - Personal history of nicotine dependence (15) Carotid artery stenosis: Status: Chronic Qualifiers: Laterality: bilateral Qualified Code(s): I65.23 - Occlusion and stenosis of bilateral carotid arteries Category: Medical Code(s): I65.29 - Occlusion and stenosis of unspecified carotid artery (16) HTN (hypertension): Status: Chronic Qualifiers: Hypertension type: essential hypertension Qualified Code(s): I10 - Essential (primary) hypertension Category: Medical Code(s): I10 - Essential (primary) hypertension (17) HLD (hyperlipidemia): Status: Chronic Qualifiers: Hyperlipidemia type: mixed hyperlipidemia Qualified Code(s): E78.2 - Mixed hyperlipidemia Category: Medical Code(s): E78.5 - Hyperlipidemia, unspecified (18) Alcoholism: Status: Acute Category: Medical Code(s): F10.20 - Alcohol dependence, uncomplicated (19) Severe protein-calorie malnutrition: Status: Acute Category: Medical Code(s): E43 - Unspecified severe protein-calorie malnutrition Plan Continue Hospice and comfort measures. Dr. Stack entry - Saw patient, agree with above note.
[2024-09-26 08:00] VITALS: BP 146/75; PULSE 114; RESP 13; TEMP 36.6; O2SAT 97
--- NOTE | 2024-09-26 09:28 | PC.NURSE ---
we repositioned pt. he was dry. not restless @ this time. family is @ bedside
[2024-09-26 22:11] VITALS: TEMP 38.7
[2024-09-26] MEDS: GLYCOPYRROLATE 0.2 MG/ML 1ML VIAL IV (22:53)
[2024-09-26 23:00] VITALS: TEMP 37.3
--- NOTE | 2024-09-26 23:00 | PC.NURSE ---
assessed pt and gave meds. pt felt warm and had multiple blankets on him. ax temp 101.7F. removed blankets and decreased temp in room. pts temp now 99.1 axillary, no distress noted at this time. at bs, she has no questions or concerns at this time.
[2024-09-27 04:00] VITALS: BMI 18.3
[2024-09-27] MEDS: MORPHINE 2MG/ML SYRINGE 2 MG IV ×2 (06:07→09:32)
--- NOTE | 2024-09-27 07:56 | P.PN_ITS ---
Subjective *Date: 09/27/24 *Time: 08:54 Interval history: Patient resting comfortably, more labored breathing. Medical Exam Vital signs and Labs for Last 24 Hours: Vital Signs Temp Pulse Resp BP Pulse Ox O2 Del Method 09/27/24 06:22 Room Air 09/27/24 05:00 Room Air 09/27/24 03:00 Room Air 09/27/24 01:00 Room Air 09/26/24 23:00 Room Air 09/26/24 23:00 99.1 F 09/26/24 22:11 101.7 F H 09/26/24 21:00 Room Air 09/26/24 20:00 Room Air 09/26/24 17:00 Room Air 09/26/24 15:00 Room Air 09/26/24 13:00 Room Air 09/26/24 11:00 Room Air 09/26/24 09:00 Room Air 09/26/24 08:00 97.9 F 114 H 13 146/75 H 97 Room Air 09/26/24 08:00 Room Air Intake and Output 09/26/24 09/27/24 09/27/24 19:59 03:59 11:59 Output Total 0 / 0 Balance 0 / 0 Output: Output, Urine Amount 0 / 0 Other: Number of Unmeasured Voids 1 Weight 135 lb 0.636 oz Patient Weight 09/27/24 11:59 Weight 135 lb 0.636 oz I & O for Labs for Last 24 Hours: Intake & Output 09/24/24 09/25/24 09/26/24 09/27/24 11:59 11:59 11:59 11:59 Intake Total 0 / 0 0 / 0 Output Total 0 / 0 0 / 0 0 / 0 Balance 0 / 0 0 / 0 0 / 0 Weight 135 lb 6.386 oz 135 lb 11.2 oz 135 lb 11.183 oz 135 lb 0.636 oz Constitutional: Present no acute distress Comment:: Lying on his back and appears comfortable and relaxed. Labored breathing. ENT: Present mucous membranes dry Respiratory: Present CTA bilaterally Cardiac: Present Reg Rate and Rhythm (Heart rate 90/min) GI: Present soft and normal bowel sounds; Absent tenderness or guarding Extremities: Absent edema Comment:: Moves all extremities Neuro: Absent awake Assessment and Plan *Assessment and plan (1) Altered mental status: Status: Acute Category: Medical Code(s): R41.82 - Altered mental status, unspecified (2) Encephalopathy: Status: Acute Category: Medical Code(s): G93.40 - Encephalopathy, unspecified (3) Acute kidney injury: Status: Acute Category: Medical Code(s): N17.9 - Acute kidney failure, unspecified (4) Hypercalcemia: Status: Acute Category: Medical Code(s): E83.52 - Hypercalcemia (5) Dehydration: Status: Acute Category: Medical Code(s): E86.0 - Dehydration (6) Adult failure to thrive: Status: Acute Category: Medical Code(s): R62.7 - Adult failure to thrive (7) Elevated bilirubin: Status: Acute Category: Medical Code(s): R17 - Unspecified jaundice (8) Elevated creatine kinase: Status: Acute Category: Medical Code(s): R74.8 - Abnormal levels of other serum enzymes (9) Acute hypernatremia: Status: Acute Category: Medical Code(s): E87.0 - Hyperosmolality and hypernatremia (10) History of coronary artery stent placement: Status: Chronic Category: Surgical Code(s): Z95.5 - Presence of coronary angioplasty implant and graft (11) GERD (gastroesophageal reflux disease): Status: Acute Qualifiers: Esophagitis presence: esophagitis presence not specified Qualified Code(s): K21.9 - Gastro-esophageal reflux disease without esophagitis Category: Medical Code(s): K21.9 - Gastro-esophageal reflux disease without esophagitis (12) CAD (coronary artery disease): Status: Chronic Qualifiers: Associated angina: without angina Coronary Disease-Associated Artery/Lesion type: [place] artery [place] vs. transplanted heart: [place] heart Qualified Code(s): I25.10 - Atherosclerotic heart disease of [place] coronary artery without angina pectoris Category: Medical Code(s): I25.10 - Atherosclerotic heart disease of [place] coronary artery without angina pectoris (13) [place] coronary artery calcium score greater than 400: Status: Acute Category: Medical Code(s): R93.1 - Abnormal findings on diagnostic imaging of heart and coronary circulation (14) Ex-smoker: Status: Acute Category: Social Hx Code(s): Z87.891 - Personal history of nicotine dependence (15) Carotid artery stenosis: Status: Chronic Qualifiers: Laterality: bilateral Qualified Code(s): I65.23 - Occlusion and stenosis of bilateral carotid arteries Category: Medical Code(s): I65.29 - Occlusion and stenosis of unspecified carotid artery (16) HTN (hypertension): Status: Chronic Qualifiers: Hypertension type: essential hypertension Qualified Code(s): I10 - Essential (primary) hypertension Category: Medical Code(s): I10 - Essential (primary) hypertension (17) HLD (hyperlipidemia): Status: Chronic Qualifiers: Hyperlipidemia type: mixed hyperlipidemia Qualified Code(s): E78.2 - Mixed hyperlipidemia Category: Medical Code(s): E78.5 - Hyperlipidemia, unspecified (18) Alcoholism: Status: Acute Category: Medical Code(s): F10.20 - Alcohol dependence, uncomplicated (19) Severe protein-calorie malnutrition: Status: Acute Category: Medical Code(s): E43 - Unspecified severe protein-calorie malnutrition Plan Continue Hospice and comfort measures. Dr. Stack entry - Saw patient, agree with above note.
[2024-09-27 08:00] VITALS: BP 100/51; PULSE 126; RESP 28; TEMP 37.7; O2SAT 74
--- NOTE | 2024-09-27 11:42 | PC.NURSE ---
Md. Stack called by charge about patients passing.
--- NOTE | 2024-09-27 12:23 | P.DN_ITS ---
Pronouncement Note Date and Time of Date of : 09/27/24 Time of : 11:40 PCOD Preliminary cause of : Encephalopathy Contributing Factors (1) Altered mental status: (2) Encephalopathy: (3) Acute kidney injury: (4) Hypercalcemia: (5) Dehydration: (6) Adult failure to thrive: (7) Elevated bilirubin: (8) Elevated creatine kinase: (9) Acute hypernatremia: (10) History of coronary artery stent placement: (11) GERD (gastroesophageal reflux disease): (12) CAD (coronary artery disease): (13) [place] coronary artery calcium score greater than 400: (14) Ex-smoker: (15) Carotid artery stenosis: (16) HTN (hypertension): (17) HLD (hyperlipidemia): (18) Alcoholism: (19) Severe protein-calorie malnutrition: Summary Additional details: Patient was admitted for end of life care at [facility] due to multifactorial encephalopathy. Hospice was consulted and participated in patient's care. He passed peacefully with family members at his bedside. Local home was notified. Additional Data Confirmation of : no pulse, no respirations and no heart sounds Family: at bedside Attending/PCP notified?: Yes Attending physician: Shahbaz Stack MD Was code activated?: No Autopsy should be considered if:: Unknown or unanticipated medical complications Cause is not known with certainty on clinical grounds Would allay concerns of the public/family regarding Unexplained/unexpected apparently natural and not subject to a forensic medical jurisdiction DOA Within 24 hours of admission Sustained or apparently sustained injury while in the hospital Result of high risk, infectious and contagious disease Obstetric and pediatric arising from environmental or occupational hazard Unexplained/unexpected from dental, medical, or surgical diagnostic procedures and/or therapies Would disclose a known or suspected illness which also may have a bearing on survivors or recipients of transplanted organs Autopsy requested?: No Does not meet criteria
--- NOTE | 2024-09-27 14:31 | PC.NURSE ---
Called [facility] to see if we could release pt to the home. [facility] stated that they were still trying to get a hold of the . Primary RN made aware.
--- NOTE | 2024-09-27 16:04 | PC.NURSE ---
THIS RN SPOKE WITH [facility]. [facility] STATED TO PLACE PT WITH ICE AND PLACE SALINE GAUZE ON PT'S EYES. DIRECTIONS CARRIED OUT AT 1540. SMITHA STATED SOMEONE WAS ON THEIR WAY FOR EYE HARVESTING.
--- NOTE | 2024-09-27 19:49 | PC.NURSE ---
[facility] is in room
--- NOTE | 2024-09-27 21:45 | PC.NURSE ---
contacted , amos, and updated her that [facility] has left and [facility] is on the way.
--- NOTE | 2024-09-30 13:56 | P.DS_ITS ---
General Admission date:: 09/19/24 Discharge date: 09/27/24 HPI HPI HPI: Fredis Romero is a 74 y/o male presenting for altered mental status. History obtained from patient's at bedside as patient is unable to provide history himself due to altered mental status. states patient was discharged from [facility] after a 5-week hospitalization consisting of alcohol withdrawals, pneumonia, encephalopathy. She was concerned that no progress is being made and she decided to take him home. states patient briefly coded while receiving a lumbar puncture during the hospitalization and was placed on a ventilator. She states prior to taking him home there was discussion of a PEG tube because patient was now refusing to eat and was pocketing food in his mouth. When she brought him home last night, she had 2 friends come over and help her get him into bed. She states he slid out of bed and laid on the floor last night and slept there. She provided him a pillow and a blanket. She was unable to get him off the floor herself. She ultimately decided to call an ambulance earlier this afternoon to have him evaluated. In summary, this is a 74-year-old male presenting with altered mental status. Differential diagnosis includes but is not limited to, encephalopathy, CVA, electrolyte abnormality, intoxication, rhabdomyolysis, sepsis, acute cystitis, aspiration pneumonia, among others. Patient has a history significant for hypertension, alcohol abuse, coronary artery disease s/p stents, active prostate cancer. Patient was taken out of the hospital without attending rehab. Patient had a prolonged stent on the floor after falling out of bed last night. Patient is nonverbal on exam and intermittently agitated. Broad evaluation will be performed consisting of CBC, CMP, VBG, CK, alcohol level, blood cultures, urinalysis, respiratory swab, CT head, CT C-spine, CT chest/abdomen/pelvis. Patient's labs significant for leukocytosis of 15.8, no anemia or thrombocytopenia. Lactic acid 2.9, given 1 L LR. Patient hyponatremic to 150 with increased creatinine of 2.4. CK 199. Blood alcohol level <10. Urinalysis pending. At time of signout, CT scans pending final evaluation. On my initial review, no evidence of acute injury, CVA, C-spine fracture, pneumothorax or intra-abdominal pathology related to patient's encephalopathy. See oncoming providers note for final evaluation. DO Fili: I assumed care of the patient at 1500. He is persistently encephalopathic, not able to form coherent sentences and reaching up in the air for things that are not there. Vitals are stable. CBC demonstrates leukocytosis. Chemistry demonstrates multiple metabolic derangements, hyponatremia, high anion gap, elevated BUN, elevated creatinine, elevated chloride. I feel this is likely related to the patient's very poor oral intake. I independently interpreted CT scans prior to radiology read and noted pneumonia and fecal impaction. He also has chronic small vessel changes on his brain. Please see radiology read for final interpretation. Patient was given IV fluids, and I ordered broad-spectrum IV antibiotics. I had ordered CIWA protocol, CIWA score was 9 so I had ordered IV benzodiazepines. I had interactive discussion with patient's physicians Dr. Stack and Dr. Winn regarding potential admission who advised that they felt he would benefit from transfer to higher level of care for neurology and psychiatry with his persistent encephalopathy. I had discussion with the patient's regarding this. We spoke for quite some time about goals of care and need for transfer for higher level of care if she wishes for him to potentially get better. I advised that we do not have neurology or psychiatry to evaluate him here, so he would need transfer to higher level of care such as [facility], , , [facility]. His called his son and spoke with him on the phone before coming to the decision that she would like to pursue comfort care measures and keep the patient here on hospice. She stated that mentioned comfort care at [facility] of prior to her leaving with him, and she thinks that since he did get better over the last 5 weeks, he is unlikely to get better and she just wants him to be kept comfortable close to home. I then discussed the case again with Dr. Stack and Dr. Winn who advised we will keep him here on comfort care measures for hospice evaluation. Family updated, patient admitted, comfort medications ordered including Ativan, morphine, Zofran. (above as per ER physician) According to patient's nurse, the family would like fluids and would like for him to be a DNR, but not a DNI. There is no family with him this am and he cannot form sentences. We are trying to obtain records from his hospital stay at [facility]. Hospital Course Hospital Course Hospital Course: As per note at [facility]: Date and Time of Date of : 09/27/24 Time of : 11:40 PCOD Preliminary cause of : Encephalopathy Summary Additional details: Patient was admitted for end of life care at [facility] due to multifactorial encephalopathy. Hospice was consulted and participated in patient's care. He passed peacefully with family members at his bedside. Local home was notified. Additional Data Confirmation of : no pulse, no respirations and no heart sounds Family: at bedside Attending/PCP notified?: Yes Attending physician: Shahbaz Stack MD Body was released to [facility] Exam Data for Last 24 hours Vital signs and Labs for Last 24 Hours: Temp Pulse Resp BP Pulse Ox O2 Del Method 99.8 F H 126 H 28 H 100/51 L 74 L Room Air 09/27/24 08:00 09/27/24 08:00 09/27/24 08:00 09/27/24 08:00 09/27/24 08:00 09/27/24 11:00 Narrative: pt DS: Diagnosis Discharge Diagnosis (1) Altered mental status: Status: Acute Code(s): R41.82 - Altered mental status, unspecified (2) Encephalopathy: Status: Acute Code(s): G93.40 - Encephalopathy, unspecified (3) Acute kidney injury: Status: Acute Code(s): N17.9 - Acute kidney failure, unspecified (4) Hypercalcemia: Status: Acute Code(s): E83.52 - Hypercalcemia (5) Dehydration: Status: Acute Code(s): E86.0 - Dehydration (6) Adult failure to thrive: Status: Acute Code(s): R62.7 - Adult failure to thrive (7) Elevated bilirubin: Status: Acute Code(s): R17 - Unspecified jaundice (8) Elevated creatine kinase: Status: Acute Code(s): R74.8 - Abnormal levels of other serum enzymes (9) Acute hypernatremia: Status: Acute Code(s): E87.0 - Hyperosmolality and hypernatremia (10) History of coronary artery stent placement: Status: Chronic Code(s): Z95.5 - Presence of coronary angioplasty implant and graft (11) GERD (gastroesophageal reflux disease): Status: Acute Code(s): K21.9 - Gastro-esophageal reflux disease without esophagitis Qualifiers: Esophagitis presence: esophagitis presence not specified Qualified Code(s): K21.9 - Gastro-esophageal reflux disease without esophagitis (12) CAD (coronary artery disease): Status: Chronic Code(s): I25.10 - Atherosclerotic heart disease of [place] coronary artery without angina pectoris Qualifiers: Coronary Disease-Associated Artery/Lesion type: [place] artery [place] vs. transplanted heart: [place] heart Associated angina: without angina Qualified Code(s): I25.10 - Atherosclerotic heart disease of [place] coronary artery without angina pectoris (13) [place] coronary artery calcium score greater than 400: Status: Acute Code(s): R93.1 - Abnormal findings on diagnostic imaging of heart and coronary circulation (14) Ex-smoker: Status: Acute Code(s): Z87.891 - Personal history of nicotine dependence (15) Carotid artery stenosis: Status: Chronic Code(s): I65.29 - Occlusion and stenosis of unspecified carotid artery Qualifiers: Laterality: bilateral Qualified Code(s): I65.23 - Occlusion and stenosis of bilateral carotid arteries (16) HTN (hypertension): Status: Chronic Code(s): I10 - Essential (primary) hypertension Qualifiers: Hypertension type: essential hypertension Qualified Code(s): I10 - Essential (primary) hypertension (17) HLD (hyperlipidemia): Status: Chronic Code(s): E78.5 - Hyperlipidemia, unspecified Qualifiers: Hyperlipidemia type: mixed hyperlipidemia Qualified Code(s): E78.2 - Mixed hyperlipidemia (18) Alcoholism: Status: Acute Code(s): F10.20 - Alcohol dependence, uncomplicated (19) Severe protein-calorie malnutrition: Status: Acute Code(s): E43 - Unspecified severe protein-calorie malnutrition Meds Home Medications and Allergies Home Medications ?Medication ?Instructions ?Recorded ?Confirmed ?Type duloxetine 60 mg capsule,delayed 60 mg PO DAILY 09/20/24 09/20/24 History release metoprolol succinate 100 mg 100 mg PO DAILY 09/20/24 09/20/24 History tablet,extended release 24 hr New Prescriptions to Start Prescriptions: Allergies Allergy/AdvReac Type Severity Reaction Status Date / Time ibuprofen Allergy Unknown Verified 09/19/24 14:45 allergy reaction Discharge Plan Disposition Patient Disposition: Patient Discharge Instructions Print Language: Haitian Date/Time Date/Time: 09/27/24 11:40 Providers Primary Care Provider: Provider,Referral Admit Provider: Anabell Winn Attending Provider: Shahbaz Stack
== END 2024-09-27 22:20 | disposition expired | DRG 70 ==
LOC: ER 16:09 → 2ND 17:37
PROVIDERS: Student in an Organized Health Care Education/Training Program; Admitting Provider Family Medicine; Emergency Provider Emergency Medicine; Visit Provider Family Medicine
DX: G93.40 Encephalopathy, unspecified (principal); E43 Unspecified severe protein-calorie malnutrition; N17.9 Acute kidney failure, unspecified; Z68.1 Body mass index [BMI] 19.9 or less, adult; E87.0 Hyperosmolality and hypernatremia; E86.0 Dehydration; I25.10 Atherosclerotic heart disease of native coronary artery without angina pectoris; Z95.5 Presence of coronary angioplasty implant and graft; E83.52 Hypercalcemia; I65.23 Occlusion and stenosis of bilateral carotid arteries; F10.20 Alcohol dependence, uncomplicated; Z51.5 Encounter for palliative care; Z66 Do not resuscitate; K21.9 Gastro-esophageal reflux disease without esophagitis; Z87.891 Personal history of nicotine dependence; Y90.0 Blood alcohol level of less than 20 mg/100 ml; I10 Essential (primary) hypertension; W06.XXXA Fall from bed, initial encounter; Y92.013 Bedroom of single-family (private) house as the place of occurrence of the external cause; C61 Malignant neoplasm of prostate; K56.41 Fecal impaction; R62.7 Adult failure to thrive; Z79.899 Other long term (current) drug therapy; Z88.8 Allergy status to other drugs, medicaments and biological substances; Z52.5 Cornea donor; Z87.01 Personal history of pneumonia (recurrent); Z86.79 Personal history of other diseases of the circulatory system; Z79.51 Long term (current) use of inhaled steroids
CPT/HCPCS: 36415; 70450; 71045; 71260; 72125; 74177; 80053; 80320; 82550; 82803; 83605; 84484; 85007; 85025; 87040; 87077; 87186; 99291; J1596; J2060; J2270; J7120; Q9967